=== PATIENT | male | born 1935 | race African-American/Black ===

== ENCOUNTER 2020-06-21 21:26 | Inpatient (IN) | payer MEDICAID ==
[~2020-06-21] VITALS: Ht 167.6 cm; Wt 53.5 kg
[2020-06-21 21:30] VITALS: BP 114/58
--- NOTE | 2020-06-21 21:30 | NUR ---
ED Nurse Note: Brought in by ambulance [facility] from [facility] c/o unwitnessed fall x today at 1430. Per ems, no ko or loc. presents with laceration to posterior head; mild bleeding. pt currently on heparin. presents with occational dry cough. resulted positive on 05/16/20. changed into gown; attached to monitor. patient ao2; denies recollection of incident. PERRLA; presents with purposeful movement. head of bed raised; decreased environmental stimuli. pui precautions observed. all safety measures met.
--- NOTE | 2020-06-21 21:35 | NUR ---
ED Nurse Note: IV ACCESS ESTABLISHED. BLOOD URINE MRSA VRE CRE COVID SWAB COLLECTED; SENT DOWN TO LAB. EKG DONE AT BEDSIDE; REVEIWED BY GRISEL.
[2020-06-21] MEDS ORDERED: COLACE100 MG ORAL (21:41)
[2020-06-21] MEDS ORDERED: HEPARIN SO5000 UNIT2 SUBQ (21:41)
[2020-06-21] MEDS ORDERED: ALBUTEROL2.5 MG/3 M INH (21:41)
[2020-06-21] MEDS ORDERED: FERROUS SULFAT325 MG ORAL (21:41)
[2020-06-21] MEDS ORDERED: HYDRALAZINE HCL25 M1 ORAL (21:41)
[2020-06-21] MEDS ORDERED: AMLODIPINE BESY10 MG ORAL (21:41)
--- NOTE | 2020-06-21 22:00 | NUR ---
ED Nurse Note: patient down to imaging via gurney with hvac operations technician.
[2020-06-21 22:11] LABS: BASOPHILS % (AUTO) 1.7 % (0.0-2.0); EOSINOPHILS % (AUTO) 1.9 % (0.0-3.0); HEMATOCRIT 32.5 % (42.0-52.0); HEMOGLOBIN 11.2 G/DL (14.2-18.0); LYMPHOCYTES % (AUTO) 9.2 % (20.0-45.0); MEAN CORPUSCULAR VOLUME 90 FL (80-99); MONOCYTES % (AUTO) 6.4 % (1.0-10.0); NEUTROPHILS % (AUTO) 80.8 % (45.0-75.0); PLATELET COUNT 226 K/UL (150-450); RED CELL DISTRIBUTION WIDTH 12.1 % (11.6-14.8)
[2020-06-21 22:19] LABS: ANION GAP 10 mmol/L (5-15); BLOOD UREA NITROGEN 57 mg/dL (7-18); CARBON DIOXIDE 25 MMOL/L (21-32); CHLORIDE 104 MMOL/L (98-107); CREATININE 2.8 MG/DL (0.55-1.30); POTASSIUM 5.7 MMOL/L (3.5-5.1); SODIUM 139 MMOL/L (136-145)
[2020-06-21 22:23] LABS: INR 0.9 (0.9-1.1)
[2020-06-21 22:24] LABS: ALANINE AMINOTRANSFERASE 22 U/L (12-78); ALBUMIN 3.7 G/DL (3.4-5.0); ALBUMIN/GLOBULIN RATIO 1.1 (1.0-2.7); ALKALINE PHOSPHATASE 93 U/L (46-116); ASPARTATE AMINO TRANSFERASE 14 U/L (15-37); BILIRUBIN,TOTAL 0.4 MG/DL (0.2-1.0)
--- NOTE | 2020-06-21 22:26 | NUR ---
ED Nurse Note: patient back from imaging via gurney; reattached to monitor. vitals remain stable to baseline
--- NOTE | 2020-06-21 22:33 | Emergency Room Report ---
History of Present Illness General Chief Complaint: Multiple Trauma/Fall Source: Patient, EMS Present Illness HPI Patient is an 84-year-old male sent in from facility after increased headache after fall in alf. Patient had positive coronavirus testing he does not recall events. Patient states that this occurred earlier in the day. Patient had been sent in for further evaluation and treatment. Does not recall events. Does not recall hitting his head. Patient is currently being anticoagulated with heparin. 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 COVID-19 Screening: Positive COVID-19 COVID-19 Testing Source: SNF Patient History Past Medical History: see triage record Reviewed Nursing Documentation: PMH: Agreed; PSxH: Agreed Nursing Documentation-PMH Hx Hypertension: Yes Review of Systems All Other Systems: limited - Limited by poor historian Physical Exam Vital Signs Date Time Temp Pulse Resp B/P (MAP) Pulse Ox O2 Delivery O2 Flow Rate FiO2 06/21/20 21:29 99.0 62 19 114/58 (76) 98 Room Air Sp02 EP Interpretation: reviewed, normal General Appearance: normal inspection, well appearing, no apparent distress, alert, GCS 15 Head: other - Left-sided occipital scalp laceration less than 1 cm without evident bleeding ENT: normal ENT inspection, hearing grossly normal, normal voice Neck: normal inspection, supple, no bony tend, limited range of motion Respiratory: normal inspection, lungs clear, normal breath sounds, no respiratory distress, no retraction, no wheezing Cardiovascular #1: regular rate, rhythm, no edema Gastrointestinal: normal inspection, normal bowel sounds, non tender, soft, no guarding, no hernia Genitourinary: no CVA tenderness Musculoskeletal: normal inspection, back normal, normal range of motion Neurologic: alert, motor strength/tone normal, oriented x3, responsive, speech normal, normal inspection Psychiatric: normal inspection, judgement/insight normal, mood/affect normal Skin: laceration - Superficial laceration 1 cm Medical Decision Making Diagnostic Impression: Primary Impression: Fall Additional Impressions: Hyperkalemia Renal insufficiency Head contusion ER Course Presented after a fall. Differential diagnosis include was not limited to syncope, intracranial hemorrhage, coronavirus infection among others. Because of complexity of patient's case laboratory tests and imaging studies were ordered. Patient's potassium level was noted to be 5.7 EKG interpreted by me showed some peaking of T waves consistent with hyperkalemia.Patient was given Kayexalate. CT imaging of the head read by radiology showed no evidence of acute intracranial pathology. His laceration a superficial does not appear to require suturing there is no active bleeding noted. CT of the cervical spine showed no evidence of acute fracture. Patient was discussed with Dr. Jefferson John who agreed to admit the patient due to hyperkalemia and likely recent syncopal episode. Labs Test 06/21/20 21:35 White Blood Count 8.0 K/UL (4.8-10.8) Red Blood Count 3.60 M/UL (4.70-6.10) Hemoglobin 11.2 G/DL (14.2-18.0) Hematocrit 32.5 % (42.0-52.0) Mean Corpuscular Volume 90 FL (80-99) Mean Corpuscular Hemoglobin 31.1 PG (27.0-31.0) Mean Corpuscular Hemoglobin Concent 34.5 G/DL (32.0-36.0) Red Cell Distribution Width 12.1 % (11.6-14.8) Platelet Count 226 K/UL (150-450) Mean Platelet Volume 6.5 FL (6.5-10.1) Neutrophils (%) (Auto) 80.8 % (45.0-75.0) Lymphocytes (%) (Auto) 9.2 % (20.0-45.0) Monocytes (%) (Auto) 6.4 % (1.0-10.0) Eosinophils (%) (Auto) 1.9 % (0.0-3.0) Basophils (%) (Auto) 1.7 % (0.0-2.0) Prothrombin Time 10.1 SEC (9.30-11.50) Prothromb Time International Ratio 0.9 (0.9-1.1) Activated Partial Thromboplast Time 27 SEC (23-33) Sodium Level 139 MMOL/L (136-145) Potassium Level 5.7 MMOL/L (3.5-5.1) Chloride Level 104 MMOL/L (98-107) Carbon Dioxide Level 25 MMOL/L (21-32) Anion Gap 10 mmol/L (5-15) Blood Urea Nitrogen 57 mg/dL (7-18) Creatinine 2.8 MG/DL (0.55-1.30) Estimat Glomerular Filtration Rate 26.2 mL/min (>60) Glucose Level 138 MG/DL (74-106) Calcium Level 9.0 MG/DL (8.5-10.1) Total Bilirubin 0.4 MG/DL (0.2-1.0) Aspartate Amino Transf (AST/SGOT) 14 U/L (15-37) Alanine Aminotransferase (ALT/SGPT) 22 U/L (12-78) Alkaline Phosphatase 93 U/L (46-116) Troponin I 0.001 ng/mL (0.000-0.056) Total Protein 7.2 G/DL (6.4-8.2) Albumin 3.7 G/DL (3.4-5.0) Globulin 3.5 g/dL Albumin/Globulin Ratio 1.1 (1.0-2.7) EKG Diagnostic Results Rate: normal Rhythm: NSR ST Segments: other - Right bundle branch block with peaking T waves Last Vital Signs Date Time Temp Pulse Resp B/P (MAP) Pulse Ox O2 Delivery O2 Flow Rate FiO2 06/21/20 21:30 62 19 Room Air 06/21/20 21:30 99.0 114/58 98 Status: improved Disposition: ADMITTED INPATIENT Condition: Serious Referrals: Jefferson Novak MD (PCP) Agustin Vilchis MD Jun 21, 2020 22:33
[2020-06-21] MEDS ORDERED: Sodium Polystyrene Sulfonate 15gm Powder ORAL ONE (22:45)
--- NOTE | 2020-06-21 22:51 | Diagnostic Imaging Report ---
EXAM: CT Cervical Spine Without Intravenous Contrast CLINICAL HISTORY: PAIN TECHNIQUE: Axial computed tomography images of the cervical spine without intravenous contrast. CTDI is 38.7 mGy and DLP is 947.4 mGy-cm. One or more of the following dose reduction techniques were used: automated exposure control, adjustment of the mA and/or kV according to patient size, use of iterative reconstruction technique. Coronal and sagittal reformatted images were created and reviewed. Axial reformatted images were created and reviewed. COMPARISON: No relevant prior studies available. FINDINGS: Vertebrae: Unremarkable. No acute fracture. Discs/spinal canal/neural foramina: Osteopenia and multilevel age- related degenerative spine findings. No spinal canal stenosis. Soft tissues: Unremarkable. Vasculature: Carotid ASVD. Thyroid: If felt to alter clinical management, recommend outpatient thyroid ultrasound to further characterize heterogeneous right thyroid 3. 8 cm nodule. IMPRESSION: 1. No acute traumatic injury. 2. Osteopenia and multilevel age-related degenerative spine findings. 3. If felt to alter clinical management, recommend outpatient thyroid ultrasound to further characterize heterogeneous right thyroid 3.8 cm nodule. 4. Carotid ASVD.
--- NOTE | 2020-06-21 23:00 | Diagnostic Imaging Report ---
EXAM: CT Head Without Intravenous Contrast CLINICAL HISTORY: PAIN TECHNIQUE: Axial computed tomography images of the head/brain without intravenous contrast. CTDI is 53.4 mGy and DLP is 1042 mGy-cm. One or more of the following dose reduction techniques were used: automated exposure control, adjustment of the mA and/or kV according to patient size, use of iterative reconstruction technique. COMPARISON: No relevant prior studies available. FINDINGS: Brain: See below. Ventricles: Unremarkable. No ventriculomegaly. Bones/joints: Unremarkable. No acute fracture. Soft tissues: Recommend direct evaluation of 2 cm scalp lesion right posterior parietal region axial series 21 image 18. Vasculature: Advanced chronic senescent findings of parenchymal volume loss, cerebrovascular atherosclerosis, nonspecific white matter hypodensity likely secondary to chronic microvascular ischemia. Sinuses: Chronic right maxillary sinusitis with right maxillary sinus opacification, this could be a cause for pain. Mastoid air cells: Unremarkable as visualized. No mastoid effusion. IMPRESSION: 1. No acute intracranial abnormality. 2. Advanced chronic senescent findings. 3. Chronic right maxillary sinusitis with right maxillary sinus opacification, this could be a cause for pain. 4. Recommend direct evaluation of 2 cm scalp lesion right posterior parietal region axial series 21 image 18.
--- NOTE | 2020-06-21 23:00 | NUR ---
ED Nurse Note: patient resulted covid negative; pui precautions lifted per ermd.
[2020-06-21 23:01] VITALS: BP 107/45
--- NOTE | 2020-06-21 23:25 | NUR ---
TRANSFER TO FLOOR: [facility] as ordered, per jennifer hercules. Report given to donte murray. patient stable for transport. transferred to unit via gurney with optical coating technician and rn. belongings and admission packet sent with patient.
--- NOTE | 2020-06-21 23:25 | NUR ---
NURSE NOTES: Received pt from ER via sue. Pt alert/oriented x2, with episodes of forgetfulness noted. Able to make needs known. Received report from ERON Reynolds. No resp distress noted, sating at 98 % on room air. Placed on cardiac monitoring. IV 18g on right AC saline locked. Able to moved all extremities. Body check done no skin issues noted. No c/o pain. Oriented to room and unit. Belonging list checked and signed. Bed in low position & locked, Side rails up x3, bed alarm field applications specialist light with in reach. Will contact DR. Novak for admission orders
--- NOTE | 2020-06-21 23:44 | NUR ---
NURSE NOTES: Received admission orders from ,will note and carry out.
[2020-06-21] MEDS ORDERED: HydrALAZINE 25mg tab ORAL PRN (23:45)
--- NOTE | 2020-06-22 | NUR ---
NURSE NOTES: Mcleod cath inserted for strict I/O per Dr. Up. Patent, draining to gravity 20cc of yellow urine observed. Pt voided 150cc prior to insertion of Mcleod cath. No c/o pain or discomfort at this time.
[2020-06-22] MEDS: D5 1/2NS 1,000 ML IV SCH ×3 (00:24→22:06)
[2020-06-22 00:38] LABS: APPEARANCE,URINE CLEAR; BILIRUBIN, URINE NEGATIVE (NEGATIVE); COLOR,URINE YELLOW; GLUCOSE, URINE (UA) NEGATIVE (NEGATIVE); KETONES,URINE NEGATIVE (NEGATIVE); NITRITE,URINE NEGATIVE (NEGATIVE); PH,URINE 5 (4.5-8.0); PROTEIN,URINE NEGATIVE (NEGATIVE); UROBILINOGEN,URINE NORMAL MG/DL (0.0-1.0)
[2020-06-22 01:07] LABS: LEUKOCYTE ESTERASE ,URINE 2+ (NEGATIVE)
[2020-06-22 04:00] VITALS: BP 117/47
--- NOTE | 2020-06-22 07:28 | NUR ---
NURSE HAND-OFF REPORT: Important Events on Shift: Admitted from ER S/P fall and hyperkalemia 5.7, Kayexalate given in ER. Patient Status:Stable Diet: Regular puree Pending Orders: Morning labs Pending Results/Labs:Morning labs Pending MD notification:none Latest Vital Signs: Temperature 97.9 , Pulse 60 , B/P 117 /47 , Respiratory Rate 16 , O2 SAT 99 , Room Air, O2 Flow Rate . Vital Sign Comment: [] EKG Rhythm: Sinus Rhythm Rhythm change?: Y MD Notified?: N - MD Response: none Latest Anglin Fall Score: 85 Fall Risk: High Risk Safety Measures: Call light Within Reach, Bed Alarm Zone 2, Side Rails Side Rails x2, Bed position Low and Locked. Fall Precautions: Yellow Socks Yellow Gown Door Sign Patient Fall Education Report given to ERON Aaron and Jin RN.
--- NOTE | 2020-06-22 07:48 | NUR ---
NURSES NOTE: Pt is A/O x2-3 but very forgetful. Pt is on bedrest for S/P fall. CT was negative. Pt has a bajwa in place for urinary retention. Pt is on room air and SATing @ 97%. logistics engineer showing SR at 68. IV is intact on RAC 18G. Bed in lowest position and locked and call light placed within reach and reminded to use when needed.
[2020-06-22 08:03] VITALS: BP 112/52
[2020-06-22 09:04] LABS: BASOPHILS % (AUTO) 1.5 % (0.0-2.0); EOSINOPHILS % (AUTO) 2.2 % (0.0-3.0); HEMATOCRIT 30.9 % (42.0-52.0); HEMOGLOBIN 10.6 G/DL (14.2-18.0); LYMPHOCYTES % (AUTO) 9.6 % (20.0-45.0); MEAN CORPUSCULAR VOLUME 90 FL (80-99); MONOCYTES % (AUTO) 8.8 % (1.0-10.0); NEUTROPHILS % (AUTO) 77.9 % (45.0-75.0); PLATELET COUNT 226 K/UL (150-450); RED BLOOD COUNT 3.43 M/UL (4.70-6.10); RED CELL DISTRIBUTION WIDTH 11.7 % (11.6-14.8); WHITE BLOOD COUNT 8.8 K/UL (4.8-10.8)
[2020-06-22] MEDS: Docusate 100mg cap ORAL SCH ×2 (09:27→18:24)
[2020-06-22 09:49] LABS: ALANINE AMINOTRANSFERASE 25 U/L (12-78); ALBUMIN 3.2 G/DL (3.4-5.0); ALKALINE PHOSPHATASE 68 U/L (46-116); ANION GAP 6 mmol/L (5-15); ASPARTATE AMINO TRANSFERASE 14 U/L (15-37); BILIRUBIN,TOTAL 0.5 MG/DL (0.2-1.0); BLOOD UREA NITROGEN 52 mg/dL (7-18); CALCIUM 8.6 MG/DL (8.5-10.1); CARBON DIOXIDE 24 MMOL/L (21-32); CHLORIDE 110 MMOL/L (98-107); CHOLESTEROL 141 MG/DL (< 200); CREATININE 1.9 MG/DL (0.55-1.30); FERRITIN 245 NG/ML (8-388); GAMMA GLUTAMYL TRANSPEPTIDASE 15 U/L (5-85); HDL CHOLESTEROL 47 MG/DL (40-60); LACTATE DEHYDROGENASE 143 U/L (81-234); PHOSPHORUS 3.3 MG/DL (2.5-4.9); POTASSIUM 4.9 MMOL/L (3.5-5.1); SODIUM 140 MMOL/L (136-145); TRIGLYCERIDES 81 MG/DL (30-150)
[2020-06-22 10:12] LABS: % IRON SATURATION 31 % (15-50); IRON 65 ug/dL (50-175); TOTAL IRON BINDING CAPACITY 207 ug/dL (250-450)
--- NOTE | 2020-06-22 10:38 | NUR ---
CASE MANAGEMENT:INITIAL REVIEW 84 YR OLD MALE PAIGE FROM [facility] CC;MULTIPLE FALL. TRAUMA. SI;HYPERKALEMIA, SYNCOPE. HEAD INJURY. 99.0 79 19 104/45 98% ON RA K+ 5.7 BUN 57 CR 2.8 BG 138 UA+ BLOOD, LEUKOCYTE ESTERASE, RBC, WBC COVID-19 RAPID ~ NEGATIVE HEAD CT ~ 1. No acute intracranial abnormality. 2. Advanced chronic senescent findings. 3. Chronic right maxillary sinusitis with right maxillary sinus opacification, this could be a cause for pain. 4. Recommend direct evaluation of 2 cm scalp lesion right posterior parietal region axial series [address] ~ 1. No acute traumatic injury. 2. Osteopenia and multilevel age-related degenerative spine findings. 3. If felt to alter clinical management, recommend outpatient thyroid ultrasound to further characterize heterogeneous right thyroid 3.8 cm nodule. 4. Carotid ASVD. BLOOD CX ~ PENDING IS;IVF NS BOLUS ADMITTED TO TELE 06/22/20 @ 0837 TELEMETRY STATUS DCP; FROM [facility] Addendum: 06/22/20 at 1449 by LEISA ROBERTS LVN LVN IS;KANEMESIOLATAMMY PO Addendum: 06/22/20 at 1548 by LEISA ROBERTS LVN LVN INTERQUAL CRITERIA MET
--- NOTE | 2020-06-22 10:58 | NUR ---
INSURANCE ALL AVAILABLE CLINICALS AND REVIEWS HAVE BEEN FAXED TO [employer] P: [phone] F: [phone] Addendum: 06/22/20 at 1654 by LEISA ROBERTS LVN LVN [facility] #[id number]
--- NOTE | 2020-06-22 11:49 | Consultation ---
Consult Note Consult Note I am asked to evaluate the patient at the request of Dr. John for renal failure Patient is an 84-year-old male sent in from facility after increased headache after fall in detention. Patient had positive coronavirus testing he does not recall events. Patient states that this occurred earlier in the day. Patient had been sent in for further evaluation and treatment. Does not recall events. Does not recall hitting his head. Patient is currently being anticoagulated with heparin. 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 GENERAL APPEARANCE: No acute distress. Seems to be underweight. HEAD AND NECK: Getting oxygen by nasal cannula. HEART: Normal rate. LUNGS: Clear. ABDOMEN: Flat, soft, nontender. EXTREMITY: Has no edema. LABORATORY AND DIAGNOSTIC DATA: Sodium 141, potassium 4.2, chloride 104, bicarb 21, BUN 38, creatinine 2. Troponin, the first set was 13.8, the second one is 17.255. EKG showed lateral ST elevation, right bundle-branch block. Labs, WBC 5.5, yesterday WBC was 18.4, hemoglobin 12.2, hematocrit 35.8, and platelets 244,000. Albumin is 3.2. Chest x-ray showed bilateral congestion, edema, infection, inflammatory process. UA showed rbc too numerous to count, wbc 10 to 30. Urine culture showed mixed bao. Blood culture x2 negative. COVID test at the time of admission was negative. VRE, MRSA screen negative. . Assessment/Plan Acute on chronic renal failure Patient presented with hyperkalemia History of hypertension however presents with borderline low blood pressure Anemia Falls Suggestions: IV hydration Mcleod catheter Hold blood pressure medications for now Monitor renal parameters Per orders I spent an additional 36 minutes on review of medical records including prior hospital records,consult notes, progress notes, procedures ,imaging labs, hemodynamics, and other clinical documentation. Sage Up MD Jun 22, 2020 11:49
[2020-06-22 12:00] VITALS: BP 119/43
--- NOTE | 2020-06-22 14:13 | Diagnostic Imaging Report ---
Indication: Chest pain Technique: One view of the chest Comparison: none Findings: Lungs and pleural spaces are clear. The heart size is upper limits normal. There is evaluated tortuous and calcified Impression: No acute process
--- NOTE | 2020-06-22 15:26 | NUR ---
BEDSIDE SWALLOW EVALUATION RECEIVED FROM DR. RODRIGUEZ. CHART REVIEW COMPLETED, RN INTERVIEWED, EVAL COMPLETED. PER POLST: NO ARTIFICIAL MEANS OF NUTRITION DYSPHAGIA RISK FACTORS: VARIABLE MENTATION, HX OF MULTIPLE FALLS/S/P HEAD TRAUMA, PER HEAD CT: CHRONIC SENESCENT CHANGES. INITIAL IMPRESSIONS: BEDSIDE SWALLOW EVALUATION INDICATED GENERALLY INTACT OROPHARYNGEAL PHASE OF SWALLOW FOR SOFT SOLIDS AND THIN LIQUIDS. PATIENT ADMITTED S/P FALL AND HEAD TRAUMA. HE WAS ABLE TO FOLLOW COMMANDS FOR ORAL MOTOR EXAM. DENTITION INCLUDES UPPER AND LOWER DENTURES. LINGUAL/LABIAL/MANDIBULAR MUSCULATURE PRESENTS INTACT FOR ROM/COORDINATION/STRENGTH. TRIALED PATIENT WITH SOFT SOLIDS, PUREE AND THIN LIQUIDS. ORAL PHASE OF THER SWALLOW WAS WFL WITH NO ANTERIOR SPILLAGE OR RESIDUE FOLLOWING THE SWALLOW. BOLUS FORMATION AND MANIPULATION WAS WFL. PHARYNGEAL PHASE WAS PALPATED. HYOLARYNGEAL EXCURSION APPEARED TO BE TIMELY AND ADEQUATE FOR AIRWAY PROTECTION. NO CHANGES IN VOCAL QUALITY OR RESPIRATION RATE. NO COUGH OR THROAT CLEAR NOTED. FURTHER SKILLED GRAIN MIXER SERVICES ARE NEEDED FOR COGNITIVE/LINGUISTIC SCREEN (IN LIGHT OF MULTIPLE FALLS) AND TO INSURE PATIENT TOLERATES A SOFT DIET WITH THIN LIQUIDS. DISCUSSED FINDINGS WITH ERON QUIROS. RECOMMENDATIONS 1. SOFT DIET WITH THIN LIQUIDS 2. SET UP ASSIST WITH MEALS 3. ST TO FOLLOW FOR DIET TOLERANCE, COGNITIVE/LINGUISTIC SCREEN, PATIENT/CAREGIVER EDUCATION THANK YOU FOR THIS REFERRAL.
[2020-06-22 16:00] VITALS: BP 137/51
--- NOTE | 2020-06-22 17:59 | Consultation ---
DATE OF CONSULTATION: 06/22/2020 PULMONARY CONSULTATION CONSULTING PHYSICIAN: Ross An MD HISTORY OF PRESENT ILLNESS: This is an 84-year-old male sent from nursing facility after an apparent fall. The patient has been found to be tested positive for COVID-19 recently. The patient information. PAST MEDICAL HISTORY: Notable for previous COVID-19 positivity and hypertension. ALLERGIES: None reported. CODE STATUS: DNR. REVIEW OF SYSTEMS: Unreliable. PHYSICAL EXAMINATION: GENERAL: Reveals an 84-year-old male. VITAL SIGNS: Blood pressure is 112/50, heart rate 68, respirations 18. O2 saturation 98% on room air. HEENT: Unremarkable. CHEST: Shows clear breath sounds bilaterally with normal heart sounds. ABDOMEN: Soft. EXTREMITIES: There is no edema. LABORATORY DATA: Lab testing shows normal CBC with hemoglobin 10.6. Creatinine 1.9. Coags are negative. Urinalysis shows few pus cells. IMAGING STUDIES: Head CT is negative as was cervical spine CT. IMPRESSION: 1. Status post fall. 2. History of COVID-19 pneumonia. 3. Scalp laceration. 4. Renal insufficiency. 5. Anemia. 6. Hyperkalemia. DISCUSSION: The patient's EKG shows evidence of mild hyperkalemia with peak T-waves. He needs correction of potassium. Currently saturating well on room air. 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 We will follow. Ross An M.D. DR: WAQAR JOB#: [id number] CC:
--- NOTE | 2020-06-22 18:00 | History and Physical Report ---
DATE OF ADMISSION: 06/21/2020 HISTORY OF PRESENT ILLNESS: Patient has been admitted because of status post fall, admitted for hyperkalemia with peaked T-waves, rule out syncope, head injury. Patient is a relatively poor historian, cannot rely upon the history of the patient. Patient comes from a [facility]. Patient denies nausea, vomiting, or diarrhea. Denies pain. Denies shortness of breath. Denies headache. Denies nausea, vomiting, or diarrhea, however, is a poor historian. PAST MEDICAL HISTORY: Significant for dementia, history of constipation, hypertension, iron deficiency anemia. Patient is on heparin. PAST SURGICAL HISTORY: Denies. FAMILY HISTORY: Noncontributory. SOCIAL HISTORY: Has history of smoking. Denies history of drug abuse. Denies history of alcohol abuse. Comes from a [facility]. ALLERGIES: No known allergies. MEDICATIONS: Colace, Norvasc, ferrous sulfate, heparin, hydralazine. REVIEW OF SYSTEMS: HEENT: Denies headaches. RESPIRATORY: Denies shortness of breath. Denies cough. CARDIOVASCULAR: Denies chest pain. GASTROINTESTINAL: Denies nausea, vomiting, or diarrhea. EXTREMITIES: Denies pain. CENTRAL NERVOUS SYSTEM: Denies change in speech pattern. PHYSICAL EXAMINATION: VITAL SIGNS: Temperature is 97.9, pulse is 67, blood pressure 112/52. HEENT: PERRLA. NECK: Supple. No lymphadenopathy. CHEST: Clear to auscultation. CARDIOVASCULAR: Regular rate and rhythm. No murmurs or extra sounds. GASTROINTESTINAL: Soft, nontender, nondistended. No organomegaly. EXTREMITIES: No edema. Moves all four extremities. Sensory intact to light touch. Reflexes on both sides. Dorsalis pedis pulses present. NEUROLOGIC: Has generalized weakness. LABORATORY DATA: WBC of 8, hemoglobin of 11.2, platelets of 226. Sodium 139, potassium 5.7, BUN of 57, creatinine 2.8, glucose of 138. ASSESSMENT AND PLAN: Hyperkalemia with peaked T-waves, acute renal failure, status post fall, poor historian, and shortness of breath. I have asked Dr. An, Dr. Up, Dr. Smalls as well as Dr. Shravan Rodriguez to see the patient for the above-mentioned diagnoses and treatment. Antibiotics if any per Dr. Shravan Rodriguez. Patient's acute renal failure, most likely due to dehydration. IV fluids per Dr. Cheney and Dr. Up. Jefferson Novak M.D. DR: KENAN JOB#: [id number] CC:
--- NOTE | 2020-06-22 19:46 | NUR ---
NURSE HAND-OFF REPORT: Important Events on Shift: Will be transferred to Med Surg. Patient Status: DNR Good Diet: Pending Orders: No Pending Results/Labs:No Pending MD notification:No Latest Vital Signs: Temperature 98.6 , Pulse 68 , B/P 137 /51 , Respiratory Rate 18 , O2 SAT 99 , Room Air, O2 Flow Rate . Vital Sign Comment: EKG Rhythm: SR w/ BBB Rhythm change?: N MD Notified?: Y Sonny Novak MD Response: Latest Anglin Fall Score: 85 Fall Risk: High Risk Safety Measures: Call light Within Reach, Bed Alarm Zone 1, Side Rails Side Rails x2, Bed position Low and Locked. Fall Precautions: Yellow Socks Yellow Gown Door Sign Patient Fall Education Report given to Julianna.
--- NOTE | 2020-06-22 19:47 | NUR ---
NURSE NOTES: Patient received from Agnieszka LITTLEJOHN. Patient in stable condition. Alert and oriented x1-2. Saturating well on Room air. No s/s of distress. Patient refusing SCDs. Mcleod catheter in place patent and intact draining well to gravity. Bed lowest position and locked. Patient wearing yellow gown and yellow socks with side rails up x3. IV site on Right AC 18G patent and intact with D5 1/2 NS running @ 75mls/hr. Will continue plan of care.
[2020-06-22 20:00] VITALS: BP 128/61
[2020-06-22] MEDS ORDERED: Acetaminophen 500mg (ES) tab ORAL PRN ×2 (21:00)
[2020-06-22] MEDS ORDERED: HydrALAZINE 25mg tab ORAL PRN (21:30)
--- NOTE | 2020-06-22 21:57 | NUR ---
NURSE NOTES: Received report from ERON Levine. Pt transferred from tele @ [id number]. AAO x 2, confused, on room air. Denies pain and labored breathing. IV site intact and running IVF. Mcleod intact and draining yellow urine. Instruction given to use a call light. Fall precaution maintained. Bed locked, lowest position, alarm on, call light within reach. Will continue to monitor.
--- NOTE | 2020-06-22 21:57 | NUR ---
NURSE NOTES: Bruises on bilateral arms and skin tear on R FA noted.
--- NOTE | 2020-06-22 21:58 | NUR ---
NURSE HAND-OFF REPORT: Important Events on Shift:[Transfer to [place]] Patient Status: [Stable] Diet: [Regular soft easy chew] Pending Orders: [] Pending Results/Labs:[] Pending MD notification:[] Latest Vital Signs: Temperature 98.6 , Pulse 61 , B/P 97 /65 , Respiratory Rate 18 , O2 SAT 100 , Room Air, O2 Flow Rate . Vital Sign Comment: [] EKG Rhythm: SR w/ BBB Rhythm change?: N MD Notified?: Y Sonny Novak MD Response: Latest Anglin Fall Score: 85 Fall Risk: High Risk Safety Measures: Call light Within Reach, Bed Alarm Zone 1, Side Rails Side Rails x2, Bed position Low and Locked. Fall Precautions: Yellow Socks Yellow Gown Door Sign Patient Fall Education Report given to [Marcia].
[2020-06-23] VITALS: BP 97/65
--- NOTE | 2020-06-23 01:26 | NUR ---
NURSE NOTES: Pt is very confused, agitated, and trying to pull out Mcleod. Mcleod intact but moderate amount of bleeding came out from the penis. Secured anchor with silk tape and left message Dr. Novak. Awaiting call back.
--- NOTE | 2020-06-23 02:00 | NUR ---
NURSE NOTES: Urine collected and sent to the lab
--- NOTE | 2020-06-23 02:20 | NUR ---
NURSE NOTES: Pt tried to pull out bajwa again and bleeding came out. RN educated pt regarding necessity of bajwa but unable to understanding and says "I want to pee, I got a pee." Emergency bilateral soft wrists restraints applied and left message Dr. Novak. Awaiting call back.
--- NOTE | 2020-06-23 03:20 | NUR ---
NURSE NOTES: Still awaiting call back. Emergency bilateral soft wrists restraints applied has been one hour. RN took them off. Skin is intact. Alternative measures attempted but still pt confused and touching aydee to pull out. Addendum: 06/23/20 at 0553 by DEEPIKA PANIAGUA RN RN NURSE NOTES: Left message Dr. Up and awaiting for call back.
[2020-06-23 04:00] VITALS: BP 160/82
--- NOTE | 2020-06-23 07:07 | NUR ---
NURSE NOTES: Removed bajwa per Dr. Up order. Some blood clots came out. Now pt is resting in bed.
--- NOTE | 2020-06-23 07:44 | NUR ---
NURSE NOTES: Per Dr. Novak, call Dr. Lopez for agitation med. Endorsed AM nurse Osseo.
--- NOTE | 2020-06-23 07:46 | NUR ---
NURSE HAND-OFF: Important Events on Shift:Pulling out Mcleod, try to get out of bed, bleeding came out from penis Patient Status: agitated, confused Diet: Reg, soft easy chew Pending Orders: Dr. Lopez for agitation meds and restraints Pending Results/Labs:swabs, blood cx, urine cx Pending MD notification:N Latest Vital Signs: Temperature 97.9 , Pulse 87 , B/P 160 /82 , Respiratory Rate 22 , O2 SAT 98 , Room Air, O2 Flow Rate . Vital Sign Comment: Latest Anglin Fall Score: 85 Fall Risk: High Risk Safety Measures: Call light Within Reach, Bed Alarm Zone 1, Side Rails Side Rails x2, Bed position Low and Locked. Fall Precautions: Yellow Socks Yellow Gown Door Sign Patient Fall Education Report given to ERON Jones.
--- NOTE | 2020-06-23 07:55 | NUR ---
NURSE NOTES: Received report from ERON Kennedy. Patient received awake in bed, alert and oriented x 1, no SOB, bed in lowest position with breaks engaged and alarm on, denies any discomfort at this time, on 2 liters 02 via NC, IV line present and intact, will continue to monitor and proceed with plan of care, call light within reach. Addendum: 06/23/20 at 1410 by Karen Roy RN Dr Lopez was made aware regarding patient's behavior (pulling IV lines, standing up unassisted, being restless) Dr. Lopez ordered Haldol 5 mg IM Q6 PRN and soft wrist restraints) noted and carried out.
[2020-06-23 08:00] VITALS: BP 106/66
[2020-06-23 08:06] LABS: HEMATOCRIT 33.8 % (42.0-52.0); HEMOGLOBIN 11.5 G/DL (14.2-18.0); MEAN CORPUSCULAR VOLUME 90 FL (80-99); PLATELET COUNT 229 K/UL (150-450); RED BLOOD COUNT 3.75 M/UL (4.70-6.10); RED CELL DISTRIBUTION WIDTH 11.4 % (11.6-14.8); WHITE BLOOD COUNT 18.4 K/UL (4.8-10.8)
[2020-06-23] MEDS: Docusate 100mg cap ORAL SCH ×2 (08:21→17:57)
[2020-06-23 08:23] LABS: ANION GAP 13 mmol/L (5-15); BLOOD UREA NITROGEN 38 mg/dL (7-18); CALCIUM 9.2 MG/DL (8.5-10.1); CARBON DIOXIDE 22 MMOL/L (21-32); CHLORIDE 104 MMOL/L (98-107); CREATININE 1.9 MG/DL (0.55-1.30); POTASSIUM 4.2 MMOL/L (3.5-5.1); SODIUM 139 MMOL/L (136-145)
[2020-06-23 08:28] LABS: ALANINE AMINOTRANSFERASE 24 U/L (12-78); ALBUMIN 3.7 G/DL (3.4-5.0); ALKALINE PHOSPHATASE 81 U/L (46-116); ASPARTATE AMINO TRANSFERASE 20 U/L (15-37); BILIRUBIN,TOTAL 0.7 MG/DL (0.2-1.0)
[2020-06-23] MEDS ORDERED: Haloperidol 5mg/ml Inj IM PRN (10:15)
[2020-06-23] MEDS: D5 1/2NS 1,000 ML IV SCH (10:58)
[2020-06-23 12:00] VITALS: BP 112/58
--- NOTE | 2020-06-23 12:11 | Pulmonology Progress Note ---
Subjective ROS Limited/Unobtainable: No Allergies: Coded Allergies: No Known Allergies (Unverified , 06/21/20) Objective Last 24 Hour Vital Signs Date Time Temp Pulse Resp B/P (MAP) Pulse Ox O2 Delivery O2 Flow Rate FiO2 06/23/20 12:00 97.8 67 18 112/58 (76) 95 06/23/20 09:00 Room Air 06/23/20 08:00 98.2 93 18 106/66 (79) 98 06/23/20 04:00 97.9 87 22 160/82 (108) 98 06/23/20 03:19 160/83 06/23/20 00:00 98.6 61 18 97/65 (76) 100 06/22/20 21:00 Room Air 06/22/20 20:00 99.0 70 18 128/61 (83) 99 06/22/20 20:00 75 06/22/20 16:00 68 06/22/20 16:00 98.6 56 18 137/51 (79) 99 Intake and Output 06/22/20 06/23/20 19:00 07:00 Intake Total 120 ml Output Total 900 ml 1000 ml Balance -780 ml -1000 ml Intake Oral 120 ml Output Urine Total 900 ml 1000 ml # Bowel Movements 1 Microbiology Date/Time Source Procedure Growth Status 06/21/20 21:35 Nasopharynx SARS-CoV-2 RdRp Gene Assay - Final Complete 06/22/20 00:05 Urine,Clean Catch Urine Culture - Preliminary NO GROWTH AFTER 24 HOURS Resulted 06/21/20 21:50 Arm Left Blood Culture - Preliminary NO GROWTH AFTER 24 HOURS Resulted 06/21/20 21:35 Arm Right Blood Culture - Preliminary NO GROWTH AFTER 24 HOURS Resulted Laboratory Tests 06/23/20 02:10: Urine Eosinophils None seen 06/23/20 07:35: White Blood Count 18.4#H, Red Blood Count 3.75L, Hemoglobin 11.5L, Hematocrit 33.8L, Mean Corpuscular Volume 90, Mean Corpuscular Hemoglobin 30.7, Mean Corpuscular Hemoglobin Concent 34.1, Red Cell Distribution Width 11.4L, Platelet Count 229, Mean Platelet Volume 6.0L, Neutrophils (%) (Auto) , Lymphocytes (%) (Auto) , Monocytes (%) (Auto) , Eosinophils (%) (Auto) , Basophils (%) (Auto) , Differential Total Cells Counted 100, Neutrophils % ( Manual) 91H, Lymphocytes % (Manual) 2L, Monocytes % (Manual) 7, Eosinophils % ( Manual) 0, Basophils % (Manual) 0, Band Neutrophils 0, Platelet Estimate Adequate, Platelet Morphology Normal, Hypochromasia 1+, Anisocytosis 1+, Sodium Level 139, Potassium Level 4.2, Chloride Level 104, Carbon Dioxide Level 22, Anion Gap 13, Blood Urea Nitrogen 38H, Creatinine 1.9H, Estimat Glomerular Filtration Rate 41.0, Glucose Level 125H, Calcium Level 9.2, Total Bilirubin 0.7 , Aspartate Amino Transf (AST/SGOT) 20, Alanine Aminotransferase (ALT/SGPT) 24, Alkaline Phosphatase 81, Total Protein 7.3, Albumin 3.7, Globulin 3.6, Albumin/ Globulin Ratio 1.0 Current Medications Medications (Trade) Dose Ordered Sig/Vanessa Route PRN Reason Start Time Stop Time Status Last Admin Dose Admin Acetaminophen (Tylenol) 500 mg Q4H PRN ORAL Mild Pain (Pain Scale 1-3) 06/22/20 21:00 07/22/20 20:59 06/23/20 01:19 Dextrose/Sodium Chloride 1,000 ml @ 75 mls/hr [id number] IV 06/22/20 21:30 07/22/20 00:00 06/23/20 10:58 Docusate Sodium (Colace) 100 mg BID ORAL 06/23/20 09:00 07/22/20 08:59 06/23/20 08:21 Haloperidol Lactate (Haldol) 5 mg Q6H PRN IM Agitation 06/23/20 10:15 08/07/20 10:14 Hydralazine HCl (Apresoline) 25 mg Q4H PRN ORAL bp over 160 syst 06/22/20 21:30 09/19/20 21:29 06/23/20 03:19 Assessment/Plan Assessment/Plan Pulmonary Progress Note HPI: This is an 84-year-old male sent from nursing facility after an apparent fall. Hyperkalemia impri=nini PAST MEDICAL HISTORY: Notable for previous COVID-19 positivity and hypertension. ALLERGIES: None reported. CODE STATUS: DNR. REVIEW OF SYSTEMS: Unreliable. PHYSICAL EXAMINATION: GENERAL: No distress VITAL SIGNS NOTED HEENT: Unremarkable. CHEST: Shows clear breath sounds bilaterally with normal heart sounds. ABDOMEN: Soft. EXTREMITIES: There is no edema. LABORATORY DATA NOTED IMAGING STUDIES: Head CT is negative as was cervical spine CT. IMPRESSION: 1. Status post fall, no acute injury CT head/neck 2. History of COVID-19 pneumonia. 3. Scalp laceration. 4. Renal insufficiency. 5. Anemia. 6. Hyperkalemiaimproved PLAN: Continue current management Currently saturating well on room air PPXMonitor labs Sree Baldwin MD Jun 23, 2020 12:11
--- NOTE | 2020-06-23 12:33 | Nephrology Progress Note ---
Assessment/Plan Problem List: (1) Leukocytosis (2) Toxic metabolic encephalopathy (3) MARQUIS (acute kidney injury) (4) Renal failure (ARF), acute on chronic (5) Hyperkalemia (6) Hyperkalemia Assessment Acute on chronic renal failure Patient presented with hyperkalemia History of hypertension however presents with borderline low blood pressure Anemia Falls Plan June 23: Patient agitated. Pulled the Mcleod out. Will discontinue Mcleod. Labs reviewed. Developed leukocytosis. Will give empirical 1 dose of Rocephin pending ID evaluation. Continue to monitor renal parameters. Continue hydration. Monitor blood pressure. Monitor renal parameters. Per orders. Discussed with RN. Repeat chest x-ray ordered. Subjective ROS Limited/Unobtainable: Yes Objective Objective Last 24 Hour Vital Signs Date Time Temp Pulse Resp B/P (MAP) Pulse Ox O2 Delivery O2 Flow Rate FiO2 06/23/20 12:00 97.8 67 18 112/58 (76) 95 06/23/20 09:00 Room Air 06/23/20 08:00 98.2 93 18 106/66 (79) 98 06/23/20 04:00 97.9 87 22 160/82 (108) 98 06/23/20 03:19 160/83 06/23/20 00:00 98.6 61 18 97/65 (76) 100 06/22/20 21:00 Room Air 06/22/20 20:00 99.0 70 18 128/61 (83) 99 06/22/20 20:00 75 06/22/20 16:00 68 06/22/20 16:00 98.6 56 18 137/51 (79) 99 Intake and Output 06/22/20 06/23/20 19:00 07:00 Intake Total 120 ml Output Total 900 ml 1000 ml Balance -780 ml -1000 ml Intake Oral 120 ml Output Urine Total 900 ml 1000 ml # Bowel Movements 1 Current Medications Medications (Trade) Dose Ordered Sig/Vanessa Route PRN Reason Start Time Stop Time Status Last Admin Dose Admin Acetaminophen (Tylenol) 500 mg Q4H PRN ORAL Mild Pain (Pain Scale 1-3) 06/22/20 21:00 07/22/20 20:59 06/23/20 01:19 Dextrose/Sodium Chloride 1,000 ml @ 75 mls/hr [id number] IV 06/22/20 21:30 07/22/20 00:00 06/23/20 10:58 Docusate Sodium (Colace) 100 mg BID ORAL 06/23/20 09:00 07/22/20 08:59 06/23/20 08:21 Haloperidol Lactate (Haldol) 5 mg Q6H PRN IM Agitation 06/23/20 10:15 08/07/20 10:14 Hydralazine HCl (Apresoline) 25 mg Q4H PRN ORAL bp over 160 syst 06/22/20 21:30 09/19/20 21:29 06/23/20 03:19 Tamsulosin HCl (Flomax) 0.4 mg BID ORAL 06/23/20 12:30 07/23/20 12:29 UNV Laboratory Tests 06/23/20 02:10: Urine Eosinophils None seen 06/23/20 07:35: White Blood Count 18.4#H, Red Blood Count 3.75L, Hemoglobin 11.5L, Hematocrit 33.8L, Mean Corpuscular Volume 90, Mean Corpuscular Hemoglobin 30.7, Mean Corpuscular Hemoglobin Concent 34.1, Red Cell Distribution Width 11.4L, Platelet Count 229, Mean Platelet Volume 6.0L, Neutrophils (%) (Auto) , Lymphocytes (%) (Auto) , Monocytes (%) (Auto) , Eosinophils (%) (Auto) , Basophils (%) (Auto) , Differential Total Cells Counted 100, Neutrophils % ( Manual) 91H, Lymphocytes % (Manual) 2L, Monocytes % (Manual) 7, Eosinophils % ( Manual) 0, Basophils % (Manual) 0, Band Neutrophils 0, Platelet Estimate Adequate, Platelet Morphology Normal, Hypochromasia 1+, Anisocytosis 1+, Sodium Level 139, Potassium Level 4.2, Chloride Level 104, Carbon Dioxide Level 22, Anion Gap 13, Blood Urea Nitrogen 38H, Creatinine 1.9H, Estimat Glomerular Filtration Rate 41.0, Glucose Level 125H, Calcium Level 9.2, Total Bilirubin 0.7 , Aspartate Amino Transf (AST/SGOT) 20, Alanine Aminotransferase (ALT/SGPT) 24, Alkaline Phosphatase 81, Total Protein 7.3, Albumin 3.7, Globulin 3.6, Albumin/ Globulin Ratio 1.0 Height (Feet): 5 Height (Inches): 6.00 Weight (Pounds): 121 General Appearance: mild distress, agitated Cardiovascular: normal rate Respiratory/Chest: decreased breath sounds Abdomen: soft Genitourinary/Rectal: other - Mcleod out Objective Mcleod out Sage Up MD Jun 23, 2020 12:33
[2020-06-23] MEDS: Tamsulosin 0.4mg cap ORAL SCH ×2 (12:48→17:57)
[2020-06-23] MEDS ORDERED: cefTRIAXone 1 GM in D5W 55 ML IVPB ONE (13:00)
--- NOTE | 2020-06-23 13:46 | Diagnostic Imaging Report ---
EXAM: XR Chest, 1 View CLINICAL HISTORY: COUGH TECHNIQUE: Frontal view of the chest. COMPARISON: Chest radiograph on 06/21/2020 FINDINGS: Hardware: None. Lungs/pleura: Hazy and interstitial opacities throughout the lungs may represent pulmonary vasculature congestion/edema and/or infectious/inflammatory process. No pleural effusion or pneumothorax. Elevation of the right hemidiaphragm, stable. Heart/mediastinum: Mild enlargement of the cardiac silhouette. Soft tissues: Unremarkable. Bones: No acute fracture. Degenerative changes of the acromioclavicular joints and spine. Upper abdomen: Normal. IMPRESSION: Hazy and interstitial opacities throughout the lungs may represent pulmonary vasculature congestion/edema and/or infectious/inflammatory process.
[2020-06-23 16:00] VITALS: BP 113/65
--- NOTE | 2020-06-23 19:10 | NUR ---
NURSE HAND-OFF: Important Events on Shift:[new order for bilateral wrist soft restraints and haldol 5 mg IM Q6 PRN] Patient Status: [stable] Diet: [Regular soft easy chew] Pending Orders: [none] Pending Results/Labs:[none] Pending MD notification:[none] Latest Vital Signs: Temperature 97.9 , Pulse 67 , B/P 113 /65 , Respiratory Rate 18 , O2 SAT 95 , Room Air, O2 Flow Rate . Vital Sign Comment: [] Latest Anglin Fall Score: 85 Fall Risk: High Risk Safety Measures: Call light Within Reach, Bed Alarm Zone 1, Side Rails Side Rails x2, Bed position Low and Locked. Fall Precautions: Yellow Socks Yellow Gown Door Sign Patient Fall Education Report given to [ERON Gould].
--- NOTE | 2020-06-23 19:34 | NUR ---
NURSE NOTES: Pt. received from ERON Jones. Pt. confused, alert to name only, breathing is even and unlabored, no complaints of pain at this time. Pt. actively trying to get out of bed and remove IV access, stating "I need to get to work." Attempted to reorient pt. of location and need to stay in bed to maintain safety. Pt. with bilateral soft wrist restraints intact, movement and sensation intact, pulses palpable. IV noted right AC intact and patent. Bed is low and locked, side rails x2 up, bed alarm active, and call light in reach; television is on for distraction.
[2020-06-23 20:00] VITALS: BP 137/70
--- NOTE | 2020-06-23 22:11 | General Progress Note ---
Assessment/Plan Problem List: (1) Hyperkalemia ICD Codes: E87.5 - Hyperkalemia SNOMED: 86216338, 391460763 (2) Renal insufficiency ICD Codes: N28.9 - Disorder of kidney and ureter, unspecified SNOMED: 811745892, 521198125 (3) Hyperkalemia ICD Codes: E87.5 - Hyperkalemia SNOMED: 40041001 (4) Leukocytosis ICD Codes: D72.829 - Elevated white blood cell count, unspecified SNOMED: 688836303, 533485316 (5) MARQUIS (acute kidney injury) ICD Codes: N17.9 - Acute kidney failure, unspecified SNOMED: 6267238, 54888232 (6) Renal failure (ARF), acute on chronic ICD Codes: N17.9 - Acute kidney failure, unspecified; N18.9 - Chronic kidney disease, unspecified SNOMED: 492652276 (7) Toxic metabolic encephalopathy ICD Codes: G92 - Toxic encephalopathy SNOMED: 988118743 Status: progressing Assessment/Plan: confused agitated at times s/p fall check renal function and lytes afebrile reviewed chart and labs and meds Subjective ROS Limited/Unobtainable: Yes Allergies: Coded Allergies: No Known Allergies (Unverified , 06/21/20) Objective Last 24 Hour Vital Signs Date Time Temp Pulse Resp B/P (MAP) Pulse Ox O2 Delivery O2 Flow Rate FiO2 06/23/20 20:00 97.3 86 19 137/70 (92) 91 06/23/20 16:00 97.9 67 18 113/65 (81) 95 06/23/20 12:00 97.8 67 18 112/58 (76) 95 06/23/20 09:00 Room Air 06/23/20 08:00 98.2 93 18 106/66 (79) 98 06/23/20 04:00 97.9 87 22 160/82 (108) 98 06/23/20 03:19 160/83 06/23/20 00:00 98.6 61 18 97/65 (76) 100 Intake and Output 06/22/20 06/23/20 19:00 07:00 Intake Total 120 ml Output Total 900 ml 1000 ml Balance -780 ml -1000 ml Intake Oral 120 ml Output Urine Total 900 ml 1000 ml # Bowel Movements 1 Laboratory Tests 06/23/20 02:10: Urine Eosinophils None seen 06/23/20 07:35: White Blood Count 18.4#H, Red Blood Count 3.75L, Hemoglobin 11.5L, Hematocrit 33.8L, Mean Corpuscular Volume 90, Mean Corpuscular Hemoglobin 30.7, Mean Corpuscular Hemoglobin Concent 34.1, Red Cell Distribution Width 11.4L, Platelet Count 229, Mean Platelet Volume 6.0L, Neutrophils (%) (Auto) , Lymphocytes (%) (Auto) , Monocytes (%) (Auto) , Eosinophils (%) (Auto) , Basophils (%) (Auto) , Differential Total Cells Counted 100, Neutrophils % ( Manual) 91H, Lymphocytes % (Manual) 2L, Monocytes % (Manual) 7, Eosinophils % ( Manual) 0, Basophils % (Manual) 0, Band Neutrophils 0, Platelet Estimate Adequate, Platelet Morphology Normal, Hypochromasia 1+, Anisocytosis 1+, Sodium Level 139, Potassium Level 4.2, Chloride Level 104, Carbon Dioxide Level 22, Anion Gap 13, Blood Urea Nitrogen 38H, Creatinine 1.9H, Estimat Glomerular Filtration Rate 41.0, Glucose Level 125H, Calcium Level 9.2, Total Bilirubin 0.7 , Aspartate Amino Transf (AST/SGOT) 20, Alanine Aminotransferase (ALT/SGPT) 24, Alkaline Phosphatase 81, Total Protein 7.3, Albumin 3.7, Globulin 3.6, Albumin/ Globulin Ratio 1.0 Height (Feet): 5 Height (Inches): 6.00 Weight (Pounds): 121 Jefferson Novak MD Jun 23, 2020 22:11
[2020-06-24] VITALS (23 sets, daily range): BP systolic 77–136; BP diastolic 43–89
--- NOTE | 2020-06-24 00:08 | Initial Psychiatric Evaluation ---
Psychiatry Consultation Psychiatry Consultation Chief Complaint: Multiple Trauma/Fall Allergies: Coded Allergies: No Known Allergies (Unverified , 06/21/20) Medication History Scheduled Amlodipine Besylate* (Amlodipine Besylate*), 10 MG ORAL DAILY, (Reported) Docusate Sodium* (Colace*), 100 MG ORAL DAILY, (Reported) Ferrous Sulfate* (Ferrous Sulfate*), 325 MG ORAL DAILY, (Reported) Heparin Sod (Porcine) (Heparin Sodium*), 5,000 UNITS SUBQ EVERY 12 HOURS, ( Reported) Hydralazine Hcl* (Hydralazine Hcl*), 25 MG ORAL EVERY 8 HOURS, (Reported) Scheduled PRN Albuterol Sulfate* (Albuterol Sulfate Hhn*), 3 ML INH Q4H PRN for Shortness of Breath, (Reported) Objective Data Height (Feet): 5 Height (Inches): 6.00 Weight (Pounds): 121 Additional Comments: Awake, disoriented. Mood is agitated. Affect is flat. Thought process is concrete. Thought content, no suicidal or homicidal ideation. Cognition is impaired. Insight and judgment is impaired. ASSESSMENT: Acute toxic encephalopathy. PLAN: 1. The patient will benefit from bilateral soft restraints. 2. Continue Haldol IM. Chacho Lopez MD Jun 24, 2020 00:08
[2020-06-24] MEDS: D5 1/2NS 1,000 ML IV SCH ×2 (00:15→13:00)
--- NOTE | 2020-06-24 07:13 | NUR ---
NURSE NOTES: Received report from ERON Gould. Patient received in bed, alert and oriented x 1, no SOB, bed in lowest position with breaks engaged and alarm on, denies any discomfort at this time, on room air, bilateral soft wrist restraints in place, IV line present and intact on R AC, will continue to monitor and proceed with plan of care, call light within reach
[2020-06-24 07:18] LABS: ALANINE AMINOTRANSFERASE 31 U/L (12-78); ALBUMIN 3.2 G/DL (3.4-5.0); ALBUMIN/GLOBULIN RATIO 0.8 (1.0-2.7); ALKALINE PHOSPHATASE 82 U/L (46-116); ANION GAP 17 mmol/L (5-15); ASPARTATE AMINO TRANSFERASE 66 U/L (15-37); BILIRUBIN,TOTAL 1.3 MG/DL (0.2-1.0); BLOOD UREA NITROGEN 38 mg/dL (7-18); CALCIUM 9.3 MG/DL (8.5-10.1); CARBON DIOXIDE 21 MMOL/L (21-32); CHLORIDE 104 MMOL/L (98-107); PHOSPHORUS 3.7 MG/DL (2.5-4.9); POTASSIUM 4.2 MMOL/L (3.5-5.1); SODIUM 141 MMOL/L (136-145)
[2020-06-24 07:22] LABS: HEMATOCRIT 35.8 % (42.0-52.0); HEMOGLOBIN 12.2 G/DL (14.2-18.0); MEAN CORPUSCULAR VOLUME 91 FL (80-99); PLATELET COUNT 244 K/UL (150-450); RED BLOOD COUNT 3.95 M/UL (4.70-6.10); RED CELL DISTRIBUTION WIDTH 11.6 % (11.6-14.8); WHITE BLOOD COUNT 5.5 K/UL (4.8-10.8)
--- NOTE | 2020-06-24 07:23 | NUR ---
NURSE HAND-OFF: Important Events on Shift:[pt. kept safe from falls] Patient Status: [stable] Diet: [Regular] Pending Orders: [na] Pending Results/Labs:[eosinophil urine] Pending MD notification:[na] Latest Vital Signs: Temperature 98.8 , Pulse 80 , B/P 130 /61 , Respiratory Rate 22 , O2 SAT 92 , Room Air, O2 Flow Rate . Vital Sign Comment: [stable] Latest Anglin Fall Score: 85 Fall Risk: High Risk Safety Measures: Call light Within Reach, Bed Alarm Zone 1, Side Rails Side Rails x3, Bed position Low and Locked. Fall Precautions: Yellow Socks Yellow Gown Door Sign Patient Fall Education Report given to [ERON Jones].
[2020-06-24 07:35] LABS: BILIRUBIN,DIRECT 0.3 MG/DL (0.0-0.3)
--- NOTE | 2020-06-24 07:59 | NUR ---
NURSE NOTES: Dr. Novak made aware of Troponin results 13.873 awaiting orders.
[2020-06-24] MEDS: Docusate 100mg cap ORAL SCH ×2 (08:27→17:00)
[2020-06-24] MEDS: Tamsulosin 0.4mg cap ORAL SCH ×2 (08:27→20:56)
--- NOTE | 2020-06-24 08:28 | NUR ---
NURSE NOTES: Dr Novak returned call and ordered STAT EKG order and to transfer patient to Telemetry unit noted and carried out.
--- NOTE | 2020-06-24 08:49 | NUR ---
Dr. Novak here to see Patient. Stat EKG being done at this time. Dr. Novak aware of EKG result, Ordered to Transfer Pt. to Telemetry JAY[facility], and notify Dr. Rm of result. Primary Rn aware. Pt. not complaining of any chest pain, B/P stable.
--- NOTE | 2020-06-24 09:20 | NUR ---
NURSE NOTES: Pt came from 4E, report given by Karen LITTLEJOHN. Pt in yellow gown with yellow socks. Vitals taken BP 99/60, 02 97 on 2 liters NC, 73 HR, temp 101.3. Pt complains of "a little" chest pain. Generally lethargic. Soft restraints in place with palpable pulses and no swelling or redness noted. Bed low and locked. Call light within reach. Whiteboard updated.
--- NOTE | 2020-06-24 09:27 | NUR ---
NURSE NOTES: Dr. Novak ordered to transfer pt to telemetry unit and to do a stat EKG noted and carried out. Patient was transferred to telemetry unit at 0910, accepted by ERON Bain. Marzena (next of kin) notified. All belongings were transferred.
[2020-06-24] MEDS ORDERED: D5 1/2NS 1,000 ML IV SCH (10:00)
[2020-06-24] MEDS ORDERED: HydrALAZINE 25mg tab ORAL PRN ×2 (10:10→14:15)
[2020-06-24] MEDS ORDERED: Acetaminophen 500mg (ES) tab ORAL PRN ×2 (10:10→14:15)
[2020-06-24] MEDS ORDERED: Haloperidol 5mg/ml Inj IM PRN ×2 (10:15→16:15)
--- NOTE | 2020-06-24 10:41 | NUR ---
CASE MANAGEMENT:REVIEW SI;TOX METABOLIC ENCEPHALOPATHY. AC/CHR RENAL FAILURE. 101.3 88 22 133/68 91% ON RA WBC 18.4 ANION GAP 17 BUN 38 CR 2 T-BILI 1.3 AST 66 TROP 17.255 CRP 20.8 BNP 70908 IS;IVF D5W @ 75 ML/HR FLOMAX PO BID HALDOL IM Q6 PRN HYDRALAZINE PO Q4 PRN TRANSFERRED FROM MED SURG TO TELE TODAY TELE STATUS DCP;[facility]
--- NOTE | 2020-06-24 10:53 | NUR ---
INSURANCE ALL AVAILABLE CLINICALS AND REVIEWS HAVE BEEN FAXED TO [employer] P: [phone] F: [phone] REF# [id number]
--- NOTE | 2020-06-24 11:30 | NUR ---
HAND-OFF: Report given to Nicolette LITTLEJOHN at ICU. Per Dr. Rm, pt transfered to ICU due to troponin trending up. Addendum: 06/24/20 at 1645 by Taya Anderson RN Nella LITTLEJOHN, NOT Nicolette
--- NOTE | 2020-06-24 11:40 | NUR ---
NURSE NOTES: Received patient from telemetry. Placed comfortably in cardiac bed. Patient appears lethargic, arousable to shaking. Bilateral soft wrist restraints noted. Right AC g18 noted. Bed in lowest position, Bed alarm on. Denies Chest pain at this time. No facial grimace. Will continue plan of care.
--- NOTE | 2020-06-24 12:00 | NUR ---
NURSE NOTES: Tried to remove bilateral soft wrist restraints. Noted patient removing devices attached to him. Bilateral soft wrist restraints reapplied.
--- NOTE | 2020-06-24 12:52 | NUR ---
NURSE NOTES: Dr. Shravan Rodriguez at bedside.
--- NOTE | 2020-06-24 13:05 | Nephrology Progress Note ---
Assessment/Plan Problem List: (1) Leukocytosis (2) Toxic metabolic encephalopathy (3) MARQUIS (acute kidney injury) (4) Renal failure (ARF), acute on chronic (5) Hyperkalemia (6) Hyperkalemia Assessment Acute on chronic renal failure Patient presented with hyperkalemia History of hypertension however presents with borderline low blood pressure Anemia Falls Plan June 24: Patient on his way to ICU due to elevated troponin from almost normal up to 17. Labs reviewed. Ejection fraction around 40%. Continue per cardiology. Continue to monitor renal parameters. June 23: Patient agitated. Pulled the Mcleod out. Will discontinue Mcleod. Labs reviewed. Developed leukocytosis. Will give empirical 1 dose of Rocephin pending ID evaluation. Continue to monitor renal parameters. Continue hydration. Monitor blood pressure. Monitor renal parameters. Per orders. Discussed with RN. Repeat chest x-ray ordered. Subjective ROS Limited/Unobtainable: No Constitutional: Reports: malaise, weakness Objective Objective Last 24 Hour Vital Signs Date Time Temp Pulse Resp B/P (MAP) Pulse Ox O2 Delivery O2 Flow Rate FiO2 06/24/20 12:00 100.0 62 14 107/50 (69) 98 06/24/20 09:00 Room Air 06/24/20 08:00 99.0 83 20 133/68 (89) 93 06/24/20 04:00 98.8 80 22 130/61 (84) 92 06/24/20 00:00 98.1 88 19 126/89 (101) 98 06/23/20 21:00 Room Air 06/23/20 20:00 97.3 86 19 137/70 (92) 91 06/23/20 16:00 97.9 67 18 113/65 (81) 95 Intake and Output 06/23/20 06/24/20 19:00 07:00 Intake Total 580 ml Balance 580 ml Intake Oral 580 ml # Voids 6 2 # Bowel Movements 1 Laboratory Tests 06/24/20 03:06: White Blood Count 5.5#, Red Blood Count 3.95L, Hemoglobin 12.2L, Hematocrit 35.8L, Mean Corpuscular Volume 91, Mean Corpuscular Hemoglobin 30.8, Mean Corpuscular Hemoglobin Concent 34.0, Red Cell Distribution Width 11.6, Platelet Count 244, Mean Platelet Volume 6.3L, Neutrophils (%) (Auto) , Lymphocytes (%) ( Auto) , Monocytes (%) (Auto) , Eosinophils (%) (Auto) , Basophils (%) (Auto) , Differential Total Cells Counted 100, Neutrophils % (Manual) 89H, Lymphocytes % (Manual) 9L, Monocytes % (Manual) 2, Eosinophils % (Manual) 0, Basophils % ( Manual) 0, Band Neutrophils 0, Platelet Estimate Adequate, Platelet Morphology Normal, Red Blood Cell Morphology Normal, Sodium Level 141, Potassium Level 4.2 , Chloride Level 104, Carbon Dioxide Level 21, Anion Gap 17H, Blood Urea Nitrogen 38H, Creatinine 2.0H, Estimat Glomerular Filtration Rate 38.5, Glucose Level 180H, Calcium Level 9.3, Phosphorus Level 3.7, Magnesium Level 1.8, Total Bilirubin 1.3H, Direct Bilirubin 0.3, Aspartate Amino Transf (AST/SGOT) 66H, Alanine Aminotransferase (ALT/SGPT) 31, Alkaline Phosphatase 82, Troponin I 13.873H, C-Reactive Protein, Quantitative 20.8H, Pro-B-Type Natriuretic Peptide 63802R, Total Protein 7.1, Albumin 3.2L, Globulin 3.9, Albumin/Globulin Ratio 0.8L 06/24/20 05:00: Urine Eosinophils None seen 06/24/20 07:32: Arterial Blood pH 7.519H, Arterial Blood Partial Pressure CO2 22.7*L, Arterial Blood Partial Pressure O2 53.3L, Arterial Blood HCO3 18.1L, Arterial Blood Oxygen Saturation 88.5*L, Arterial Blood Base Excess -3.1L, Zach Test Positive 06/24/20 10:05: Troponin I 17.255H Height (Feet): 5 Height (Inches): 6.00 Weight (Pounds): 116 General Appearance: lethargic Cardiovascular: normal rate Respiratory/Chest: decreased breath sounds Abdomen: distended Objective Sage Tamayo MD Jun 24, 2020 13:05
[2020-06-24] MEDS ORDERED: Heparin 25,000u/D5W 500ml 500 ML IV SCH ×2 (13:15→22:00)
--- NOTE | 2020-06-24 13:19 | NUR ---
NURSE NOTES: Dr. Rm at bedside.
[2020-06-24 13:25] LABS: INR 1.1 (0.9-1.1)
--- NOTE | 2020-06-24 13:35 | Pulmonology Progress Note ---
Subjective ROS Limited/Unobtainable: No Allergies: Coded Allergies: No Known Allergies (Unverified , 06/21/20) Objective Last 24 Hour Vital Signs Date Time Temp Pulse Resp B/P (MAP) Pulse Ox O2 Delivery O2 Flow Rate FiO2 06/24/20 13:00 92 22 118/71 (87) 98 06/24/20 12:00 100.0 62 14 107/50 (69) 98 06/24/20 09:00 Room Air 06/24/20 08:00 99.0 83 20 133/68 (89) 93 06/24/20 04:00 98.8 80 22 130/61 (84) 92 06/24/20 00:00 98.1 88 19 126/89 (101) 98 06/23/20 21:00 Room Air 06/23/20 20:00 97.3 86 19 137/70 (92) 91 06/23/20 16:00 97.9 67 18 113/65 (81) 95 Intake and Output 06/23/20 06/24/20 19:00 07:00 Intake Total 580 ml Balance 580 ml Intake Oral 580 ml # Voids 6 2 # Bowel Movements 1 Microbiology Date/Time Source Procedure Growth Status 06/21/20 21:35 Nasal Nares MRSA Culture - Final NO METHICILLIN RESISTANT STAPH AUREUS... Complete 06/21/20 21:35 Nasopharynx SARS-CoV-2 RdRp Gene Assay - Final Complete 06/22/20 00:05 Urine,Clean Catch Urine Culture - Final Mixed Gram Positive Organism Complete 06/21/20 21:50 Arm Left Blood Culture - Preliminary NO GROWTH AFTER 48 HOURS Resulted 06/21/20 21:35 Arm Right Blood Culture - Preliminary NO GROWTH AFTER 48 HOURS Resulted 06/21/20 21:35 Rectum - Final NO CARBAPENEM-RESISTANT ENTEROBACTERI... Complete 06/21/20 21:35 Rectum VRE Culture - Final NO VANCOMYCIN RESISTANT ENTEROCOCCUS ... Complete Laboratory Tests 06/24/20 03:06: White Blood Count 5.5#, Red Blood Count 3.95L, Hemoglobin 12.2L, Hematocrit 35.8L, Mean Corpuscular Volume 91, Mean Corpuscular Hemoglobin 30.8, Mean Corpuscular Hemoglobin Concent 34.0, Red Cell Distribution Width 11.6, Platelet Count 244, Mean Platelet Volume 6.3L, Neutrophils (%) (Auto) , Lymphocytes (%) ( Auto) , Monocytes (%) (Auto) , Eosinophils (%) (Auto) , Basophils (%) (Auto) , Differential Total Cells Counted 100, Neutrophils % (Manual) 89H, Lymphocytes % (Manual) 9L, Monocytes % (Manual) 2, Eosinophils % (Manual) 0, Basophils % ( Manual) 0, Band Neutrophils 0, Platelet Estimate Adequate, Platelet Morphology Normal, Red Blood Cell Morphology Normal, Sodium Level 141, Potassium Level 4.2 , Chloride Level 104, Carbon Dioxide Level 21, Anion Gap 17H, Blood Urea Nitrogen 38H, Creatinine 2.0H, Estimat Glomerular Filtration Rate 38.5, Glucose Level 180H, Calcium Level 9.3, Phosphorus Level 3.7, Magnesium Level 1.8, Total Bilirubin 1.3H, Direct Bilirubin 0.3, Aspartate Amino Transf (AST/SGOT) 66H, Alanine Aminotransferase (ALT/SGPT) 31, Alkaline Phosphatase 82, Troponin I 13.873H, C-Reactive Protein, Quantitative 20.8H, Pro-B-Type Natriuretic Peptide 72371A, Total Protein 7.1, Albumin 3.2L, Globulin 3.9, Albumin/Globulin Ratio 0.8L 06/24/20 05:00: Urine Eosinophils None seen 06/24/20 07:32: Arterial Blood pH 7.519H, Arterial Blood Partial Pressure CO2 22.7*L, Arterial Blood Partial Pressure O2 53.3L, Arterial Blood HCO3 18.1L, Arterial Blood Oxygen Saturation 88.5*L, Arterial Blood Base Excess -3.1L, Zach Test Positive 06/24/20 10:05: Troponin I 17.255H 06/24/20 12:55: Prothrombin Time [Pending], Prothromb Time International Ratio [Pending], Activated Partial Thromboplast Time [Pending] Current Medications Medications (Trade) Dose Ordered Sig/Vanessa Route PRN Reason Start Time Stop Time Status Last Admin Dose Admin Acetaminophen (Tylenol) 500 mg Q4H PRN ORAL Mild Pain (Pain Scale 1-3) 06/24/20 14:15 07/22/20 10:09 Acetaminophen (Tylenol) 650 mg Q4H PRN ORAL Fever over 100.4 06/24/20 14:00 07/24/20 09:59 Aspirin (ASA) 81 mg DAILY ORAL 06/25/20 09:00 08/09/20 08:59 Atorvastatin Calcium (Lipitor) 80 mg BEDTIME ORAL 06/24/20 21:00 09/22/20 20:59 Ceftriaxone Sodium 1 gm/ Dextrose 55 ml @ 110 mls/hr Q24H IVPB 06/24/20 13:00 07/01/20 12:59 Dextrose/Sodium Chloride 1,000 ml @ 75 mls/hr [id number] IV 06/24/20 12:00 07/22/20 00:00 Docusate Sodium (Colace) 100 mg BID ORAL 06/24/20 18:00 07/22/20 08:59 Haloperidol Lactate (Haldol) 5 mg Q6H PRN IM Agitation 06/24/20 16:15 08/07/20 10:14 Heparin Sodium/ Dextrose 500 ml @ 12.628 mls/ hr ADJUST PER PROTOCOL IV 06/24/20 13:15 07/24/20 13:14 UNV Hydralazine HCl (Apresoline) 25 mg Q4H PRN ORAL bp over 160 syst 06/24/20 14:15 09/19/20 10:09 Metoprolol Tartrate (Lopressor) 12.5 mg Q12HR ORAL 06/24/20 21:00 09/22/20 20:59 Tamsulosin HCl (Flomax) 0.4 mg BID ORAL 06/24/20 18:00 07/23/20 12:44 Assessment/Plan Assessment/Plan Pulmonary Progress Note HPI: This is an 84-year-old male sent from nursing facility after an apparent fall. Hyperkalemia, elevated troponin, now tf to ICU, previously borderline low BP Cardiology following PAST MEDICAL HISTORY: Notable for previous COVID-19 positivity and hypertension. ALLERGIES: None reported. CODE STATUS: DNR. REVIEW OF SYSTEMS: Unreliable. PHYSICAL EXAMINATION: GENERAL: No distress VITAL SIGNS NOTED HEENT: Unremarkable. CHEST: Shows clear breath sounds bilaterally with normal heart sounds. ABDOMEN: Soft. EXTREMITIES: There is no edema. LABORATORY DATA NOTED IMAGING STUDIES: Head CT is negative as was cervical spine CT. IMPRESSION: 1. Status post fall, no acute injury CT head/neck 2. History of COVID-19 pneumonia. 3. Scalp laceration. 4. Renal insufficiency. 5. Anemia. 6. Hyperkalemia 7. Elevated troponin PLAN: Continue current management Cardiology following Currently saturating well on room air PPXMonitor labs Balfe,Sree MD Jun 24, 2020 13:35
[2020-06-24] MEDS: cefTRIAXone 1 GM in D5W 55 ML IVPB SCH (13:56)
--- NOTE | 2020-06-24 14:30 | Consultation ---
DATE OF CONSULTATION: 06/24/2020 INFECTIOUS DISEASES CONSULTATION CONSULTING PHYSICIAN: Shravan Rodriguez MD. PRIMARY ATTENDING PHYSICIAN: Jefferson Novak MD. REASON FOR CONSULTATION: Fever, pneumonia. HISTORY OF PRESENT ILLNESS: This is an 84-year-old male, admitted on June 21, 2020, from a [facility] facility after a fall. He suffered a head laceration and the patient was found to have systolic and diastolic heart failure. He had a recent COVID pneumonia in May 2020, positive testing in [facility]. The patient has had no current chest x- ray in the baseline, but developed fever today, T-max is 101.3. The patient was transferred to ICU because of elevation of troponin and acute AL. PAST MEDICAL HISTORY: Chronic kidney disease, anemia, COVID-19, dementia, hypertension, gastroesophageal reflux disease. SOCIAL HISTORY: [facility] resident. Single. No history of alcohol, drug abuse, or smoking. REVIEW OF SYSTEMS: Not obtainable. The patient is lethargic. PHYSICAL EXAMINATION: VITAL SIGNS: T-max 101.3, pulse 83, blood pressure 133/68. GENERAL APPEARANCE: No acute distress. Seems to be underweight. HEAD AND NECK: Getting oxygen by nasal cannula. HEART: Normal rate. LUNGS: Clear. ABDOMEN: Flat, soft, nontender. EXTREMITY: Has no edema. LABORATORY AND DIAGNOSTIC DATA: Sodium 141, potassium 4.2, chloride 104, bicarb 21, BUN 38, creatinine 2. Troponin, the first set was 13.8, the second one is 17.255. EKG showed lateral ST elevation, right bundle-branch block. Labs, WBC 5.5, yesterday WBC was 18.4, hemoglobin 12.2, hematocrit 35.8, and platelets 244,000. Albumin is 3.2. Chest x-ray showed bilateral congestion, edema, infection, inflammatory process. UA showed rbc too numerous to count, wbc 10 to 30. Urine culture showed mixed bao. Blood culture x2 negative. COVID test at the time of admission was negative. VRE, MRSA screen negative. IMPRESSION: Fever, pneumonia, pulmonary edema, acute renal failure, chronic kidney disease, acute ST-elevation AL, anemia. RECOMMENDATION: We will follow up the blood culture. We will obtain UA and urine culture. We should start the patient empirically on ceftriaxone. Cardiology evaluation is pending. At the end of my exam, I thank Dr. Novak for involving me in the care of this patient. Shravan Rodriguez M.D. DR: NIKA JOB#: [id number] CC: ARTURO
--- NOTE | 2020-06-24 14:36 | Cardiac Electrophysiology PN ---
Subjective Subjective [id number] Objective Last 24 Hour Vital Signs Date Time Temp Pulse Resp B/P (MAP) Pulse Ox O2 Delivery O2 Flow Rate FiO2 06/24/20 13:00 92 22 118/71 (87) 98 06/24/20 12:00 100.0 62 14 107/50 (69) 98 06/24/20 09:00 Room Air 06/24/20 08:00 99.0 83 20 133/68 (89) 93 06/24/20 04:00 98.8 80 22 130/61 (84) 92 06/24/20 00:00 98.1 88 19 126/89 (101) 98 06/23/20 21:00 Room Air 06/23/20 20:00 97.3 86 19 137/70 (92) 91 06/23/20 16:00 97.9 67 18 113/65 (81) 95 Intake and Output 06/23/20 06/24/20 19:00 07:00 Intake Total 580 ml Balance 580 ml Intake Oral 580 ml # Voids 6 2 # Bowel Movements 1 Laboratory Tests Test 06/24/20 03:06 06/24/20 05:00 06/24/20 07:32 06/24/20 10:05 White Blood Count 5.5 K/UL (4.8-10.8) # Red Blood Count 3.95 M/UL (4.70-6.10) L Hemoglobin 12.2 G/DL (14.2-18.0) L Hematocrit 35.8 % (42.0-52.0) L Mean Corpuscular Volume 91 FL (80-99) Mean Corpuscular Hemoglobin 30.8 PG (27.0-31.0) Mean Corpuscular Hemoglobin Concent 34.0 G/DL (32.0-36.0) Red Cell Distribution Width 11.6 % (11.6-14.8) Platelet Count 244 K/UL (150-450) Mean Platelet Volume 6.3 FL (6.5-10.1) L Neutrophils (%) (Auto) % (45.0-75.0) Lymphocytes (%) (Auto) % (20.0-45.0) Monocytes (%) (Auto) % (1.0-10.0) Eosinophils (%) (Auto) % (0.0-3.0) Basophils (%) (Auto) % (0.0-2.0) Differential Total Cells Counted 100 Neutrophils % (Manual) 89 % (45-75) H Lymphocytes % (Manual) 9 % (20-45) L Monocytes % (Manual) 2 % (1-10) Eosinophils % (Manual) 0 % (0-3) Basophils % (Manual) 0 % (0-2) Band Neutrophils 0 % (0-8) Platelet Estimate Adequate Platelet Morphology Normal Red Blood Cell Morphology Normal Sodium Level 141 MMOL/L (136-145) Potassium Level 4.2 MMOL/L (3.5-5.1) Chloride Level 104 MMOL/L (98-107) Carbon Dioxide Level 21 MMOL/L (21-32) Anion Gap 17 mmol/L (5-15) H Blood Urea Nitrogen 38 mg/dL (7-18) H Creatinine 2.0 MG/DL (0.55-1.30) H Estimat Glomerular Filtration Rate 38.5 mL/min (>60) Glucose Level 180 MG/DL (74-106) H Calcium Level 9.3 MG/DL (8.5-10.1) Phosphorus Level 3.7 MG/DL (2.5-4.9) Magnesium Level 1.8 MG/DL (1.8-2.4) Total Bilirubin 1.3 MG/DL (0.2-1.0) H Direct Bilirubin 0.3 MG/DL (0.0-0.3) Aspartate Amino Transf (AST/SGOT) 66 U/L (15-37) H Alanine Aminotransferase (ALT/SGPT) 31 U/L (12-78) Alkaline Phosphatase 82 U/L (46-116) Troponin I 13.873 ng/mL (0.000-0.056) 17.255 ng/mL (0.000-0.056) C-Reactive Protein, Quantitative 20.8 mg/dL (0.00-0.90) H Pro-B-Type Natriuretic Peptide 59876 pg/mL (0-125) H Total Protein 7.1 G/DL (6.4-8.2) Albumin 3.2 G/DL (3.4-5.0) L Globulin 3.9 g/dL Albumin/Globulin Ratio 0.8 (1.0-2.7) L Urine Eosinophils None seen (NONE SEEN) Arterial Blood pH 7.519 (7.350-7.450) Arterial Blood Partial Pressure CO2 22.7 mmHg (35.0-45.0) *L Arterial Blood Partial Pressure O2 53.3 mmHg (75.0-100.0) L Arterial Blood HCO3 18.1 mmol/L (22.0-26.0) L Arterial Blood Oxygen Saturation 88.5 % (95-100) *L Arterial Blood Base Excess -3.1 (-2-2) L Zach Test Positive Test 06/24/20 12:55 Prothrombin Time 12.2 SEC (9.30-11.50) H Prothromb Time International Ratio 1.1 (0.9-1.1) Activated Partial Thromboplast Time 33 SEC (23-33) Microbiology Date/Time Source Procedure Growth Status 06/21/20 21:35 Nasal Nares MRSA Culture - Final NO METHICILLIN RESISTANT STAPH AUREUS... Complete 06/21/20 21:35 Nasopharynx SARS-CoV-2 RdRp Gene Assay - Final Complete 06/22/20 00:05 Urine,Clean Catch Urine Culture - Final Mixed Gram Positive Organism Complete 06/21/20 21:50 Arm Left Blood Culture - Preliminary NO GROWTH AFTER 48 HOURS Resulted 06/21/20 21:35 Arm Right Blood Culture - Preliminary NO GROWTH AFTER 48 HOURS Resulted 06/21/20 21:35 Rectum - Final NO CARBAPENEM-RESISTANT ENTEROBACTERI... Complete 06/21/20 21:35 Rectum VRE Culture - Final NO VANCOMYCIN RESISTANT ENTEROCOCCUS ... Complete Mor Rm MD Jun 24, 2020 14:36
--- NOTE | 2020-06-24 15:40 | NUR ---
NURSE NOTES: Informed Dr. Novak that patient is having urinary retention. 300 ML urine output noted when bajwa was inserted. Dr. Novak said to keep the bajwa catheter.
[2020-06-24 16:23] LABS: APPEARANCE,URINE TURBID; COLOR,URINE YELLOW
[2020-06-24 16:24] LABS: BILIRUBIN, URINE NEGATIVE (NEGATIVE); GLUCOSE, URINE (UA) NEGATIVE (NEGATIVE); KETONES,URINE 1+ (NEGATIVE); LEUKOCYTE ESTERASE ,URINE 3+ (NEGATIVE); NITRITE,URINE POSITIVE (NEGATIVE); PROTEIN,URINE 1+ (NEGATIVE); UROBILINOGEN,URINE NORMAL MG/DL (0.0-1.0)
--- NOTE | 2020-06-24 16:30 | NUR ---
NURSE NOTES: Marzena Pool/Patient's Niece in the unit. Visiting patient. She is aware that patient is DNR.
--- NOTE | 2020-06-24 17:00 | NUR ---
NURSE NOTES: Bed bath provided. 1 Large bowel movement noted at this time. Skin remains intact.
[2020-06-24] MEDS ORDERED: Tamsulosin 0.4mg cap ORAL SCH ×2 (18:00)
[2020-06-24] MEDS ORDERED: Docusate 100mg cap ORAL SCH (18:00)
--- NOTE | 2020-06-24 18:00 | Consultation ---
DATE OF CONSULTATION: 06/24/2020 CARDIOLOGY CONSULTATION CONSULTING PHYSICIAN: Mor Rm MD. REFERRING PHYSICIAN: Jefferson Novak MD. REASON FOR CONSULTATION: Non-ST elevation myocardial infarction. HISTORY OF PRESENT ILLNESS: Patient is an 84-year-old gentleman with history of hypertension, dementia, iron deficiency anemia who was admitted for status post fall, found to have hyperkalemia with peaked T-waves. Patient was not able to provide any meaningful information. Patient is from the residential. Patient did not have any chest pain or shortness of breath. Patient was originally admitted to a non-monitored bed. Patient had positive coronavirus testing in the past. rapid test is negative. Patient's initial troponin was 13 and was transferred to telemetry. A followup troponin was 17. A Cardiology consultation was obtained for further evaluation. At the time of my evaluation, the patient was already transferred to ICU. He has been confused, in restraints. He is unable to provide any meaningful information. Patient also has renal failure with BUN of 52, creatinine of 1.9. REVIEW OF SYSTEMS: Negative other than what is mentioned in the history of present illness. PAST MEDICAL HISTORY: As mentioned above. FAMILY HISTORY: Noncontributory. SOCIAL HISTORY: He lives in residential. Does not smoke or drink alcohol. PHYSICAL EXAMINATION: VITAL SIGNS: Blood pressure 118/71, pulse is 92, temperature is 100. HEAD AND NECK: No JVD. LUNGS: Coarse rhonchi. CARDIOVASCULAR: Shows regular S1 and S2 with no gallop. ABDOMEN: Soft. EXTREMITIES: No pitting edema. LABORATORY AND DIAGNOSTIC DATA: His labs show sodium 141, potassium 4.2, BUN of 38, creatinine of 2, and glucose of 180. Troponin is originally negative on 06/21/2020, on 06/24/2020 was 13.87 at 3 a.m. and at 10 a.m. was 17.2. His EKG showed sinus rhythm, right bundle-branch block, and lateral infarct. ASSESSMENT AND PLAN: 1. Acute non-ST elevation myocardial infarction with troponin of 17. Patient is DNR. Partially may be due to renal failure or due to COVID myocarditis in view of patient's recent COVID. I will treat the patient medically with aspirin 81 mg daily, metoprolol 12.5 b.i.d., and Lipitor 80 mg at bedtime. We will follow up troponin and get an echocardiogram for further evaluation. 2. History of recent COVID. 3. Dementia. 4. Renal failure and hyperkalemia. 5. Contusion. Thank you very much for allowing me to participate in the care of this patient. Please do not hesitate to contact me for any questions regarding my evaluation. Mor Rm M.D. DR: JEROME JOB#: [id number] CC:
--- NOTE | 2020-06-24 19:30 | NUR ---
NURSE HAND-OFF REPORT: Latest Vital Signs: Temperature 99.8 , Pulse 61 , B/P 90 /58 , Respiratory Rate 16 , O2 SAT 100 , Nasal Cannula, O2 Flow Rate 2.0 . Vital Sign Comment: On continuous heparin drip 12 units/hour. EKG Rhythm: Sinus Rhythm Rhythm change?: N MD Notified?: Response: Dr. Rm aware of latest troponin level. Latest Anglin Fall Score: 85 Fall Risk: High Risk Safety Measures: Call light Within Reach, Bed Alarm Zone 1, Side Rails Side Rails x2, Bed position Low and Locked. Fall Precautions: Yellow Socks Yellow Gown Door Sign Patient Fall Education Patient is for PTT at 2049. Report given to Chris Richard RN.
--- NOTE | 2020-06-24 20:00 | NUR ---
NURSE NOTES: received report from marcio murray awake and alert jesus manuel soft restraint nan complaint hr 75 on sr no c/o chest pain or sob on heparin drip at 12unit/kg/hr reposition and suction
[2020-06-24] MEDS: Atorvastatin 80mg tab ORAL SCH (20:55)
[2020-06-24] MEDS: Metoprolol Tartrate 12.5mg TAB ORAL SCH (20:56)
--- NOTE | 2020-06-24 22:00 | NUR ---
NURSE NOTES: heparin drip>16unit /kg/hr and bolos heparin 4000 unit ivp per protocal and DR ARIAS WAS NOTIFY WITH TROPONIN 11.971
[2020-06-24] MEDS ORDERED: Heparin 5000 units/ml inj SUBQ SCH (22:15)
[2020-06-25] VITALS (32 sets, daily range): BP systolic 86–130; BP diastolic 31–84
--- NOTE | 2020-06-25 | NUR ---
NURSE NOTES: asleep no acute distress noted
--- NOTE | 2020-06-25 00:07 | General Progress Note ---
Assessment/Plan Problem List: (1) Hyperkalemia ICD Codes: E87.5 - Hyperkalemia SNOMED: 60498186, 000829160 (2) Renal insufficiency ICD Codes: N28.9 - Disorder of kidney and ureter, unspecified SNOMED: 795981565, 820326934 (3) Hyperkalemia ICD Codes: E87.5 - Hyperkalemia SNOMED: 34556208 (4) Leukocytosis ICD Codes: D72.829 - Elevated white blood cell count, unspecified SNOMED: 250785523, 564481833 (5) MARQUIS (acute kidney injury) ICD Codes: N17.9 - Acute kidney failure, unspecified SNOMED: 1464388, 89350054 (6) Renal failure (ARF), acute on chronic ICD Codes: N17.9 - Acute kidney failure, unspecified; N18.9 - Chronic kidney disease, unspecified SNOMED: 378149228 (7) Toxic metabolic encephalopathy ICD Codes: G92 - Toxic encephalopathy SNOMED: 791143807 Status: progressing Assessment/Plan: late entry: confused agitated at times s/p fall TX elevated trop .transferred to icu also had fever septic Subjective ROS Limited/Unobtainable: Yes Allergies: Coded Allergies: No Known Allergies (Unverified , 06/21/20) Objective Last 24 Hour Vital Signs Date Time Temp Pulse Resp B/P (MAP) Pulse Ox O2 Delivery O2 Flow Rate FiO2 06/24/20 23:00 72 18 91/45 (60) 98 06/24/20 22:30 60 15 113/81 (92) 97 06/24/20 22:00 62 15 93/46 (62) 98 06/24/20 21:30 80 19 133/51 (78) 99 06/24/20 21:00 72 15 101/46 (64) 100 06/24/20 20:56 77 111/43 06/24/20 20:30 80 21 111/43 (65) 99 06/24/20 20:00 98.5 79 19 118/52 (74) 99 06/24/20 20:00 Nasal Cannula 2.0 06/24/20 20:00 75 06/24/20 19:00 61 16 90/58 (69) 100 06/24/20 18:30 63 15 97/50 (66) 99 06/24/20 18:00 64 15 112/66 (81) 100 06/24/20 17:30 76 17 90/45 (60) 99 06/24/20 17:00 59 14 77/47 (57) 100 06/24/20 16:30 59 15 120/52 (74) 06/24/20 16:00 99.8 90 19 119/88 (98) 06/24/20 16:00 Nasal Cannula 2.0 06/24/20 15:30 92 20 136/74 (94) 88 06/24/20 15:14 63 06/24/20 15:00 63 15 90/43 (59) 98 06/24/20 14:30 98 20 123/85 (98) 96 06/24/20 14:00 81 20 92/55 (67) 100 06/24/20 13:00 92 22 118/71 (87) 98 06/24/20 12:11 71 06/24/20 12:00 100.0 62 14 107/50 (69) 98 06/24/20 12:00 Nasal Cannula 2.0 06/24/20 09:00 Room Air 06/24/20 08:00 99.0 83 20 133/68 (89) 93 06/24/20 04:00 98.8 80 22 130/61 (84) 92 Intake and Output 06/24/20 06/25/20 19:00 07:00 Intake Total 558.032 ml 225 ml Output Total 410 ml 390 ml Balance 148.032 ml -165 ml Intake Oral 0 ml IV Total 558.032 ml 225 ml Output Urine Total 410 ml 390 ml # Voids 1 # Bowel Movements 2 1 Laboratory Tests 06/24/20 03:06: White Blood Count 5.5#, Red Blood Count 3.95L, Hemoglobin 12.2L, Hematocrit 35.8L, Mean Corpuscular Volume 91, Mean Corpuscular Hemoglobin 30.8, Mean Corpuscular Hemoglobin Concent 34.0, Red Cell Distribution Width 11.6, Platelet Count 244, Mean Platelet Volume 6.3L, Neutrophils (%) (Auto) , Lymphocytes (%) ( Auto) , Monocytes (%) (Auto) , Eosinophils (%) (Auto) , Basophils (%) (Auto) , Differential Total Cells Counted 100, Neutrophils % (Manual) 89H, Lymphocytes % (Manual) 9L, Monocytes % (Manual) 2, Eosinophils % (Manual) 0, Basophils % ( Manual) 0, Band Neutrophils 0, Platelet Estimate Adequate, Platelet Morphology Normal, Red Blood Cell Morphology Normal, Sodium Level 141, Potassium Level 4.2 , Chloride Level 104, Carbon Dioxide Level 21, Anion Gap 17H, Blood Urea Nitrogen 38H, Creatinine 2.0H, Estimat Glomerular Filtration Rate 38.5, Glucose Level 180H, Calcium Level 9.3, Phosphorus Level 3.7, Magnesium Level 1.8, Total Bilirubin 1.3H, Direct Bilirubin 0.3, Aspartate Amino Transf (AST/SGOT) 66H, Alanine Aminotransferase (ALT/SGPT) 31, Alkaline Phosphatase 82, Troponin I 13.873H, C-Reactive Protein, Quantitative 20.8H, Pro-B-Type Natriuretic Peptide 08545S, Total Protein 7.1, Albumin 3.2L, Globulin 3.9, Albumin/Globulin Ratio 0.8L 06/24/20 05:00: Urine Eosinophils None seen 06/24/20 07:32: Arterial Blood pH 7.519H, Arterial Blood Partial Pressure CO2 22.7*L, Arterial Blood Partial Pressure O2 53.3L, Arterial Blood HCO3 18.1L, Arterial Blood Oxygen Saturation 88.5*L, Arterial Blood Base Excess -3.1L, Zach Test Positive 06/24/20 10:05: Troponin I 17.255H 06/24/20 12:55: Prothrombin Time 12.2H, Prothromb Time International Ratio 1.1, Activated Partial Thromboplast Time 33 06/24/20 15:10: Urine Color Yellow, Urine Appearance Turbid, Urine pH 5.0, Urine Specific Gordon 1.015, Urine Protein 1+H, Urine Glucose (UA) Negative, Urine Ketones 1+H , Urine Blood 5+H, Urine Nitrite PositiveH, Urine Bilirubin Negative, Urine Urobilinogen Normal, Urine Leukocyte Esterase 3+H, Urine RBC TntcH, Urine WBC TntcH, Urine Squamous Epithelial Cells Occasional, Urine Bacteria ManyH 06/24/20 21:05: Activated Partial Thromboplast Time 39H, Troponin I 11.971H Height (Feet): 5 Height (Inches): 6.00 Weight (Pounds): 116 Jefferson Novak MD Jun 25, 2020 00:07
[2020-06-25] MEDS: D5 1/2NS 1,000 ML IV SCH ×2 (02:18→15:16)
--- NOTE | 2020-06-25 04:00 | NUR ---
NURSE NOTES: complete bed bath oral care and back care done
[2020-06-25] MEDS ORDERED: Heparin 25,000u/D5W 500ml 500 ML IV SCH ×3 (06:00→14:00)
[2020-06-25] MEDS ORDERED: Heparin 5000 units/ml inj IV SCH ×2 (06:00→14:00)
--- NOTE | 2020-06-25 06:00 | NUR ---
NURSE NOTES: ptt 57 2000 unit bolos heparin ivp and heparin drip at 18 unit /kg/hr and ptt [id number] order
--- NOTE | 2020-06-25 07:28 | NUR ---
6HAND-OFF: Report given to .jing murray sbar
--- NOTE | 2020-06-25 07:30 | NUR ---
NURSE NOTES: Report received from Enrike LITTLEJOHN.Pt asleep ,noted no resp distress on 2 L NC,easily awakens with verbal command,denies any c/o chest pain or discomfort,SR on the monitor,[facility] cath draining yellow urine,skin warm and dry IV site to Lt arm intact with Heparin drip at 16 u/kg/hr,bilat wrist restraints in placed for safety,pt has a tendency of grabbing IV line,SR up x2 HOB elevated bed lock in lowest position,will continue with plans of care .
[2020-06-25] MEDS ORDERED: Aspirin Baby 81mg ORAL SCH (09:00)
[2020-06-25 09:08] LABS: ALANINE AMINOTRANSFERASE 39 U/L (12-78); ALBUMIN 2.4 G/DL (3.4-5.0); ALBUMIN/GLOBULIN RATIO 0.7 (1.0-2.7); ALKALINE PHOSPHATASE 61 U/L (46-116); ANION GAP 12 mmol/L (5-15); ASPARTATE AMINO TRANSFERASE 78 U/L (15-37); BILIRUBIN,TOTAL 0.5 MG/DL (0.2-1.0); BLOOD UREA NITROGEN 44 mg/dL (7-18); CALCIUM 8.1 MG/DL (8.5-10.1); CARBON DIOXIDE 22 MMOL/L (21-32); CHLORIDE 107 MMOL/L (98-107); CREATININE 1.8 MG/DL (0.55-1.30); PHOSPHORUS 3.2 MG/DL (2.5-4.9); POTASSIUM 3.7 MMOL/L (3.5-5.1); SODIUM 140 MMOL/L (136-145)
[2020-06-25] MEDS: Tamsulosin 0.4mg cap ORAL SCH ×2 (09:18→20:27)
[2020-06-25] MEDS: Metoprolol Tartrate 12.5mg TAB ORAL SCH ×2 (09:18→20:29)
[2020-06-25] MEDS: Docusate 100mg cap ORAL SCH ×2 (09:19→17:16)
--- NOTE | 2020-06-25 09:22 | Nephrology Progress Note ---
Assessment/Plan Problem List: (1) Leukocytosis (2) Toxic metabolic encephalopathy (3) MARQUIS (acute kidney injury) (4) Renal failure (ARF), acute on chronic (5) Hyperkalemia (6) Hyperkalemia (7) Non-ST elevation [place] (NSTEMI) Assessment Acute on chronic renal failure Patient presented with hyperkalemia History of hypertension however presents with borderline low blood pressure Anemia Falls Plan June 25: Patient in ICU. Hemodynamically stable. Serum creatinine 1.8. Continue per current management. Continue to monitor renal parameters. Patient DNR. June 24: Patient on his way to ICU due to elevated troponin from almost normal up to 17. Labs reviewed. Ejection fraction around 40%. Continue per cardiology. Continue to monitor renal parameters. June 23: Patient agitated. Pulled the Mcleod out. Will discontinue Mcleod. Labs reviewed. Developed leukocytosis. Will give empirical 1 dose of Rocephin pending ID evaluation. Continue to monitor renal parameters. Continue hydration. Monitor blood pressure. Monitor renal parameters. Per orders. Discussed with RN. Repeat chest x-ray ordered. Subjective ROS Limited/Unobtainable: No Constitutional: Reports: malaise Objective Objective Last 24 Hour Vital Signs Date Time Temp Pulse Resp B/P (MAP) Pulse Ox O2 Delivery O2 Flow Rate FiO2 06/25/20 09:18 67 109/44 06/25/20 08:00 98.0 67 15 109/44 (65) 100 06/25/20 07:00 63 15 92/56 (68) 100 06/25/20 06:30 68 15 120/39 (66) 100 06/25/20 06:00 70 14 101/53 (69) 100 06/25/20 05:30 68 13 88/43 (58) 100 06/25/20 05:00 72 16 95/40 (58) 100 06/25/20 04:30 69 14 114/38 (63) 100 06/25/20 04:00 98.8 68 16 106/44 (64) 100 06/25/20 04:00 85 06/25/20 03:30 66 20 119/31 (60) 98 06/25/20 03:00 63 15 86/40 (55) 100 06/25/20 02:30 64 15 87/40 (56) 100 06/25/20 02:00 65 16 130/76 (94) 100 06/25/20 01:30 66 15 96/49 (65) 100 06/25/20 01:30 66 15 96/49 (65) 100 06/25/20 01:13 65 16 92/47 (62) 99 06/25/20 01:00 67 16 88/35 (52) 100 06/25/20 01:00 67 16 92/35 (54) 100 06/25/20 00:30 75 18 102/54 (70) 100 06/25/20 00:30 75 18 102/54 (70) 100 06/25/20 00:00 Nasal Cannula 2.0 06/25/20 00:00 98.8 80 20 118/54 (75) 96 06/25/20 00:00 80 06/25/20 00:00 80 20 118/54 (75) 96 06/25/20 00:00 80 20 118/54 (75) 96 06/24/20 23:00 72 18 91/45 (60) 98 06/24/20 22:30 60 15 113/81 (92) 97 06/24/20 22:00 62 15 93/46 (62) 98 06/24/20 21:30 80 19 133/51 (78) 99 06/24/20 21:00 72 15 101/46 (64) 100 06/24/20 20:56 77 111/43 06/24/20 20:30 80 21 111/43 (65) 99 06/24/20 20:00 98.5 79 19 118/52 (74) 99 06/24/20 20:00 Nasal Cannula 2.0 06/24/20 20:00 75 06/24/20 19:00 61 16 90/58 (69) 100 06/24/20 18:30 63 15 97/50 (66) 99 06/24/20 18:00 64 15 112/66 (81) 100 06/24/20 17:30 76 17 90/45 (60) 99 06/24/20 17:00 59 14 77/47 (57) 100 06/24/20 16:30 59 15 120/52 (74) 06/24/20 16:00 99.8 90 19 119/88 (98) 06/24/20 16:00 Nasal Cannula 2.0 06/24/20 15:30 92 20 136/74 (94) 88 06/24/20 15:14 63 06/24/20 15:00 63 15 90/43 (59) 98 06/24/20 14:30 98 20 123/85 (98) 96 06/24/20 14:00 81 20 92/55 (67) 100 06/24/20 13:00 92 22 118/71 (87) 98 06/24/20 12:11 71 06/24/20 12:00 100.0 62 14 107/50 (69) 98 06/24/20 12:00 Nasal Cannula 2.0 Intake and Output 06/24/20 06/25/20 19:00 07:00 Intake Total 558.032 ml 1053.638 ml Output Total 410 ml 985 ml Balance 148.032 ml 68.638 ml Intake Oral 0 ml IV Total 558.032 ml 1053.638 ml Output Urine Total 410 ml 985 ml # Voids 1 # Bowel Movements 2 3 Current Medications Medications (Trade) Dose Ordered Sig/Vanessa Route PRN Reason Start Time Stop Time Status Last Admin Dose Admin Acetaminophen (Tylenol) 500 mg Q4H PRN ORAL Mild Pain (Pain Scale 1-3) 06/24/20 14:15 07/22/20 10:09 Acetaminophen (Tylenol) 650 mg Q4H PRN ORAL Fever over 100.4 06/24/20 14:00 07/24/20 09:59 Aspirin (ASA) 81 mg DAILY ORAL 06/25/20 09:00 08/09/20 08:59 06/25/20 09:18 Atorvastatin Calcium (Lipitor) 80 mg BEDTIME ORAL 06/24/20 21:00 09/22/20 20:59 06/24/20 20:55 Ceftriaxone Sodium 1 gm/ Dextrose 55 ml @ 110 mls/hr Q24H IVPB 06/24/20 13:00 07/01/20 12:59 06/24/20 13:56 Dextrose/Sodium Chloride 1,000 ml @ 75 mls/hr [id number] IV 06/24/20 12:00 07/22/20 00:00 06/25/20 02:18 Docusate Sodium (Colace) 100 mg BID ORAL 06/24/20 18:00 07/22/20 08:59 06/25/20 09:19 Haloperidol Lactate (Haldol) 5 mg Q6H PRN IM Agitation 06/24/20 16:15 08/07/20 10:14 Heparin Sodium/ Dextrose 500 ml @ 18.942 mls/ hr ADJUST PER PROTOCOL IV 06/25/20 06:00 07/24/20 13:14 06/25/20 06:08 Hydralazine HCl (Apresoline) 25 mg Q4H PRN ORAL bp over 160 syst 06/24/20 14:15 09/19/20 10:09 Metoprolol Tartrate (Lopressor) 12.5 mg Q12HR ORAL 06/24/20 21:00 09/22/20 20:59 06/25/20 09:18 Pantoprazole (Protonix) 40 mg DAILY ORAL 06/24/20 20:30 07/24/20 20:29 06/25/20 09:18 Tamsulosin HCl (Flomax) 0.4 mg EVERY 12 HOURS ORAL 06/24/20 21:00 07/23/20 12:44 06/25/20 09:18 Laboratory Tests 06/24/20 10:05: Troponin I 17.255H 06/24/20 12:55: Prothrombin Time 12.2H, Prothromb Time International Ratio 1.1, Activated Partial Thromboplast Time 33 06/24/20 15:10: Urine Color Yellow, Urine Appearance Turbid, Urine pH 5.0, Urine Specific [place] 1.015, Urine Protein 1+H, Urine Glucose (UA) Negative, Urine Ketones 1+H , Urine Blood 5+H, Urine Nitrite PositiveH, Urine Bilirubin Negative, Urine Urobilinogen Normal, Urine Leukocyte Esterase 3+H, Urine RBC TntcH, Urine WBC TntcH, Urine Squamous Epithelial Cells Occasional, Urine Bacteria ManyH 06/24/20 21:05: Troponin I 11.971H, Activated Partial Thromboplast Time 39H 06/25/20 04:26: Activated Partial Thromboplast Time 57H, Sodium Level 140, Potassium Level 3.7, Chloride Level 107, Carbon Dioxide Level 22, Anion Gap 12, Blood Urea Nitrogen 44H, Creatinine 1.8H, Estimat Glomerular Filtration Rate 43.6, Glucose Level 118H, Calcium Level 8.1L, Phosphorus Level 3.2, Magnesium Level 2.0, Total Bilirubin 0.5, Aspartate Amino Transf (AST/SGOT) 78H, Alanine Aminotransferase ( ALT/SGPT) 39, Alkaline Phosphatase 61, Troponin I 9.716H, Total Protein 5.8L, Albumin 2.4L, Globulin 3.4, Albumin/Globulin Ratio 0.7L Height (Feet): 5 Height (Inches): 6.00 Weight (Pounds): 120 General Appearance: no apparent distress, lethargic Cardiovascular: normal rate Respiratory/Chest: decreased breath sounds Abdomen: distended Sage Up MD Jun 25, 2020 09:21
--- NOTE | 2020-06-25 09:39 | NUR ---
FINANCIAL RECRUITER NOTE Pt being seen for FINANCIAL RECRUITER dysphagia intervention, initial bedside evaluation completed on 06/22/20. Chart reviewed in preparation for FINANCIAL RECRUITER therapy session. Pt downgraded to ICU on 06/24/20. MD to re-refer Pt to FINANCIAL RECRUITER s/p transfer to a higher level of care to re-evaluate Pt's swallowing function and safety and determine Pt's safest and least restrictive diet s/p change in medical status. Thank you for this referral! FINANCIAL RECRUITER [phone]
[2020-06-25] MEDS ORDERED: D5 1/2NS 1000ml IV ONE (09:58)
--- NOTE | 2020-06-25 10:02 | Consultation ---
History of Present Illness General Date patient seen: Jun 25, 2020 Time patient seen: 10:00 - am Chief Complaint: NSTEMI Referring physician: Kishore Reason for Consultation: Pain Management Present Illness HPI HISTORY OF PRESENT ILLNESS: This is a 84 y/o male seen in the [place] [facility] [place] management consultation. Patient admitted under the care of Dr. Novak from [facility]. Patient is in bed with nurse at bedside. He is eating breakfast and denies pain. We were consulted so patient has adequate pain control while here in the hospital. PAST MEDICAL HISTORY: Significant for dementia, history of constipation, hypertension, iron deficiency anemia. Patient is on heparin. PAST SURGICAL HISTORY: Denies. FAMILY HISTORY: Noncontributory. SOCIAL HISTORY: Has history of smoking. Denies history of drug abuse. Denies history of alcohol abuse. ALLERGIES: No known allergies. MEDICATIONS: Colace, Norvasc, ferrous sulfate, heparin, hydralazine. Allergies: Coded Allergies: No Known Allergies (Unverified , 06/21/20) Medication History Scheduled Amlodipine Besylate* (Amlodipine Besylate*), 10 MG ORAL DAILY, (Reported) Docusate Sodium* (Colace*), 100 MG ORAL DAILY, (Reported) Ferrous Sulfate* (Ferrous Sulfate*), 325 MG ORAL DAILY, (Reported) Heparin Sod (Porcine) (Heparin Sodium*), 5,000 UNITS SUBQ EVERY 12 HOURS, ( Reported) Hydralazine Hcl* (Hydralazine Hcl*), 25 MG ORAL EVERY 8 HOURS, (Reported) Scheduled PRN Albuterol Sulfate* (Albuterol Sulfate Hhn*), 3 ML INH Q4H PRN for Shortness of Breath, (Reported) Patient History Healthcare decision maker Resuscitation status Advanced Directive on File Review of Systems ROS Narrative REVIEW OF SYSTEMS: HEENT: Denies headaches. RESPIRATORY: Denies shortness of breath. Denies cough. CARDIOVASCULAR: Denies chest pain. GASTROINTESTINAL: Denies nausea, vomiting, or diarrhea. EXTREMITIES: Denies pain. CENTRAL NERVOUS SYSTEM: Denies change in speech pattern. Physical Exam Physical Exam Narrative HEENT: PERRLA. NECK: Supple. No lymphadenopathy. CHEST: Clear to auscultation. CARDIOVASCULAR: Regular rate and rhythm. No murmurs or extra sounds. GASTROINTESTINAL: Soft, nontender, nondistended. No organomegaly. EXTREMITIES: No edema. Moves all four extremities. Sensory intact to light touch. Reflexes on both sides. Dorsalis pedis pulses present. NEUROLOGIC: Has generalized weakness. Last 24 Hour Vital Signs Date Time Temp Pulse Resp B/P (MAP) Pulse Ox O2 Delivery O2 Flow Rate FiO2 06/25/20 09:18 67 109/44 06/25/20 08:00 72 06/25/20 08:00 98.0 67 15 109/44 (65) 100 06/25/20 07:00 63 15 92/56 (68) 100 06/25/20 06:30 68 15 120/39 (66) 100 06/25/20 06:00 70 14 101/53 (69) 100 06/25/20 05:30 68 13 88/43 (58) 100 06/25/20 05:00 72 16 95/40 (58) 100 06/25/20 04:30 69 14 114/38 (63) 100 06/25/20 04:00 98.8 68 16 106/44 (64) 100 06/25/20 04:00 85 06/25/20 03:30 66 20 119/31 (60) 98 06/25/20 03:00 63 15 86/40 (55) 100 06/25/20 02:30 64 15 87/40 (56) 100 06/25/20 02:00 65 16 130/76 (94) 100 06/25/20 01:30 66 15 96/49 (65) 100 06/25/20 01:30 66 15 96/49 (65) 100 06/25/20 01:13 65 16 92/47 (62) 99 06/25/20 01:00 67 16 88/35 (52) 100 06/25/20 01:00 67 16 92/35 (54) 100 06/25/20 00:30 75 18 102/54 (70) 100 06/25/20 00:30 75 18 102/54 (70) 100 06/25/20 00:00 Nasal Cannula 2.0 06/25/20 00:00 98.8 80 20 118/54 (75) 96 06/25/20 00:00 80 06/25/20 00:00 80 20 118/54 (75) 96 06/25/20 00:00 80 20 118/54 (75) 96 06/24/20 23:00 72 18 91/45 (60) 98 06/24/20 22:30 60 15 113/81 (92) 97 06/24/20 22:00 62 15 93/46 (62) 98 06/24/20 21:30 80 19 133/51 (78) 99 06/24/20 21:00 72 15 101/46 (64) 100 06/24/20 20:56 77 111/43 06/24/20 20:30 80 21 111/43 (65) 99 06/24/20 20:00 98.5 79 19 118/52 (74) 99 06/24/20 20:00 Nasal Cannula 2.0 06/24/20 20:00 75 06/24/20 19:00 61 16 90/58 (69) 100 06/24/20 18:30 63 15 97/50 (66) 99 06/24/20 18:00 64 15 112/66 (81) 100 06/24/20 17:30 76 17 90/45 (60) 99 06/24/20 17:00 59 14 77/47 (57) 100 06/24/20 16:30 59 15 120/52 (74) 06/24/20 16:00 99.8 90 19 119/88 (98) 06/24/20 16:00 Nasal Cannula 2.0 06/24/20 15:30 92 20 136/74 (94) 88 06/24/20 15:14 63 06/24/20 15:00 63 15 90/43 (59) 98 06/24/20 14:30 98 20 123/85 (98) 96 06/24/20 14:00 81 20 92/55 (67) 100 06/24/20 13:00 92 22 118/71 (87) 98 06/24/20 12:11 71 06/24/20 12:00 100.0 62 14 107/50 (69) 98 06/24/20 12:00 Nasal Cannula 2.0 Intake and Output 06/24/20 06/25/20 19:00 07:00 Intake Total 558.032 ml 1053.638 ml Output Total 410 ml 985 ml Balance 148.032 ml 68.638 ml Intake Oral 0 ml IV Total 558.032 ml 1053.638 ml Output Urine Total 410 ml 985 ml # Voids 1 # Bowel Movements 2 3 Laboratory Tests Test 06/24/20 10:05 06/24/20 12:55 06/24/20 15:10 06/24/20 21:05 Troponin I 17.255 ng/mL (0.000-0.056) 11.971 ng/mL (0.000-0.056) Prothrombin Time 12.2 SEC (9.30-11.50) H Prothromb Time International Ratio 1.1 (0.9-1.1) Activated Partial Thromboplast Time 33 SEC (23-33) 39 SEC (23-33) H Urine Color Yellow Urine Appearance Turbid Urine pH 5.0 (4.5-8.0) Urine Specific [place] 1.015 (1.005-1.035) Urine Protein 1+ (NEGATIVE) H Urine Glucose (UA) Negative (NEGATIVE) Urine Ketones 1+ (NEGATIVE) H Urine Blood 5+ (NEGATIVE) H Urine Nitrite Positive (NEGATIVE) H Urine Bilirubin Negative (NEGATIVE) Urine Urobilinogen Normal MG/DL (0.0-1.0) Urine Leukocyte Esterase 3+ (NEGATIVE) H Urine RBC Tntc /HPF (0 - 0) H Urine WBC Tntc /HPF (0 - 0) H Urine Squamous Epithelial Cells Occasional /LPF Urine Bacteria Many /HPF (NONE) H Test 06/25/20 04:26 Activated Partial Thromboplast Time 57 SEC (23-33) H Sodium Level 140 MMOL/L (136-145) Potassium Level 3.7 MMOL/L (3.5-5.1) Chloride Level 107 MMOL/L (98-107) Carbon Dioxide Level 22 MMOL/L (21-32) Anion Gap 12 mmol/L (5-15) Blood Urea Nitrogen 44 mg/dL (7-18) H Creatinine 1.8 MG/DL (0.55-1.30) H Estimat Glomerular Filtration Rate 43.6 mL/min (>60) Glucose Level 118 MG/DL (74-106) H Calcium Level 8.1 MG/DL (8.5-10.1) L Phosphorus Level 3.2 MG/DL (2.5-4.9) Magnesium Level 2.0 MG/DL (1.8-2.4) Total Bilirubin 0.5 MG/DL (0.2-1.0) Aspartate Amino Transf (AST/SGOT) 78 U/L (15-37) H Alanine Aminotransferase (ALT/SGPT) 39 U/L (12-78) Alkaline Phosphatase 61 U/L (46-116) Troponin I 9.716 ng/mL (0.000-0.056) Total Protein 5.8 G/DL (6.4-8.2) L Albumin 2.4 G/DL (3.4-5.0) L Globulin 3.4 g/dL Albumin/Globulin Ratio 0.7 (1.0-2.7) L Microbiology Date/Time Source Procedure Growth Status 06/24/20 15:10 Urine,Clean Catch Urine Culture - Preliminary Gram Negative Bacillus 1 Resulted Height (Feet): 5 Height (Inches): 6.00 Weight (Pounds): 120 Medications Current Medications Medications (Trade) Dose Ordered Sig/Vanessa Route PRN Reason Start Time Stop Time Status Last Admin Dose Admin Acetaminophen (Tylenol) 500 mg Q4H PRN ORAL Mild Pain (Pain Scale 1-3) 06/24/20 14:15 07/22/20 10:09 Acetaminophen (Tylenol) 650 mg Q4H PRN ORAL Fever over 100.4 06/24/20 14:00 07/24/20 09:59 Aspirin (ASA) 81 mg DAILY ORAL 06/25/20 09:00 08/09/20 08:59 06/25/20 09:18 Atorvastatin Calcium (Lipitor) 80 mg BEDTIME ORAL 06/24/20 21:00 09/22/20 20:59 06/24/20 20:55 Ceftriaxone Sodium 1 gm/ Dextrose 55 ml @ 110 mls/hr Q24H IVPB 06/24/20 13:00 07/01/20 12:59 06/24/20 13:56 Dextrose/Sodium Chloride 1,000 ml @ 75 mls/hr [id number] IV 06/24/20 12:00 07/22/20 00:00 06/25/20 02:18 Docusate Sodium (Colace) 100 mg BID ORAL 06/24/20 18:00 07/22/20 08:59 06/25/20 09:19 Haloperidol Lactate (Haldol) 5 mg Q6H PRN IM Agitation 06/24/20 16:15 08/07/20 10:14 Heparin Sodium/ Dextrose 500 ml @ 18.942 mls/ hr ADJUST PER PROTOCOL IV 06/25/20 06:00 07/24/20 13:14 06/25/20 06:08 Hydralazine HCl (Apresoline) 25 mg Q4H PRN ORAL bp over 160 syst 06/24/20 14:15 09/19/20 10:09 Metoprolol Tartrate (Lopressor) 12.5 mg Q12HR ORAL 06/24/20 21:00 09/22/20 20:59 06/25/20 09:18 Pantoprazole (Protonix) 40 mg DAILY ORAL 06/24/20 20:30 07/24/20 20:29 06/25/20 09:18 Tamsulosin HCl (Flomax) 0.4 mg EVERY 12 HOURS ORAL 06/24/20 21:00 07/23/20 12:44 06/25/20 09:18 Assessment/Plan Assessment/Plan: (1) Degenerative Joint disease (2) NSTEMI Patient to be continued on Tylenol D/w Dr. Smalls and he concurred. Thank you for consult. Vishal Brito Jun 25, 2020 10:02
--- NOTE | 2020-06-25 10:05 | NUR ---
Social Work This Sw received a consult to assist with POA documents. This Sw spoke with Aure aprkAdy Alfaro @ [phone], who explains patient lives in his own home in [place] and would like SNF placement closer to this (niece lives in [facility]). The intermediate plan is for patient to return to his home, if able (according to vivian). Patients niece is paying additional expenses to maintain his home. Vivian explains patient does not have an Advance Directive, was a "recluse," does not have any other family assisting him with decision making. This SW explained to nifaisal regarding SNF will need to accept HMO/insurance for placement (patient was at [facility] prior; this SW made attempts to contact [facility] x3, phone keeps ringing, no answer at this time). Vivian explains she is requesting DNR. Nursing aware/patient has DNR status already in place, currently in the ICU.
--- NOTE | 2020-06-25 10:20 | NUR ---
NURSE NOTES: Dr Love at bedside updated re pt's status re isoltion,ordered to discontinue Covid isolation.Informed also pt needing another IV access for antibiotic,since pt has on ly one IV access.Ordered for PICC line insertion and signed the consent since pt has no immediate relative.
--- NOTE | 2020-06-25 10:28 | Infectious Diseases Prog Note ---
Assessment/Plan Assessment/Plan IMPRESSION: Fever resolved, UTI Pneumonia/ pulmonary edema, Acute renal failure, Chronic kidney disease, Acute [place], Anemia. History of recent COVID19 RECOMMENDATION: We will follow up the cultures. Continue ceftriaxone. Needs IV access, PICC line orderd Subjective ROS Limited/Unobtainable: Yes Constitutional: Denies: fever Neurologic: Reports: confusion, other - on restraint Allergies: Coded Allergies: No Known Allergies (Unverified , 06/21/20) Objective Last 24 Hour Vital Signs Date Time Temp Pulse Resp B/P (MAP) Pulse Ox O2 Delivery O2 Flow Rate FiO2 06/25/20 09:18 67 109/44 06/25/20 08:00 72 06/25/20 08:00 98.0 67 15 109/44 (65) 100 06/25/20 07:00 63 15 92/56 (68) 100 06/25/20 06:30 68 15 120/39 (66) 100 06/25/20 06:00 70 14 101/53 (69) 100 06/25/20 05:30 68 13 88/43 (58) 100 06/25/20 05:00 72 16 95/40 (58) 100 06/25/20 04:30 69 14 114/38 (63) 100 06/25/20 04:00 98.8 68 16 106/44 (64) 100 06/25/20 04:00 85 06/25/20 03:30 66 20 119/31 (60) 98 06/25/20 03:00 63 15 86/40 (55) 100 06/25/20 02:30 64 15 87/40 (56) 100 06/25/20 02:00 65 16 130/76 (94) 100 06/25/20 01:30 66 15 96/49 (65) 100 06/25/20 01:30 66 15 96/49 (65) 100 06/25/20 01:13 65 16 92/47 (62) 99 06/25/20 01:00 67 16 88/35 (52) 100 06/25/20 01:00 67 16 92/35 (54) 100 06/25/20 00:30 75 18 102/54 (70) 100 06/25/20 00:30 75 18 102/54 (70) 100 06/25/20 00:00 Nasal Cannula 2.0 06/25/20 00:00 98.8 80 20 118/54 (75) 96 06/25/20 00:00 80 06/25/20 00:00 80 20 118/54 (75) 96 06/25/20 00:00 80 20 118/54 (75) 96 06/24/20 23:00 72 18 91/45 (60) 98 06/24/20 22:30 60 15 113/81 (92) 97 06/24/20 22:00 62 15 93/46 (62) 98 06/24/20 21:30 80 19 133/51 (78) 99 06/24/20 21:00 72 15 101/46 (64) 100 06/24/20 20:56 77 111/43 06/24/20 20:30 80 21 111/43 (65) 99 06/24/20 20:00 98.5 79 19 118/52 (74) 99 06/24/20 20:00 Nasal Cannula 2.0 06/24/20 20:00 75 06/24/20 19:00 61 16 90/58 (69) 100 06/24/20 18:30 63 15 97/50 (66) 99 06/24/20 18:00 64 15 112/66 (81) 100 06/24/20 17:30 76 17 90/45 (60) 99 06/24/20 17:00 59 14 77/47 (57) 100 06/24/20 16:30 59 15 120/52 (74) 06/24/20 16:00 99.8 90 19 119/88 (98) 06/24/20 16:00 Nasal Cannula 2.0 06/24/20 15:30 92 20 136/74 (94) 88 06/24/20 15:14 63 06/24/20 15:00 63 15 90/43 (59) 98 06/24/20 14:30 98 20 123/85 (98) 96 06/24/20 14:00 81 20 92/55 (67) 100 06/24/20 13:00 92 22 118/71 (87) 98 06/24/20 12:11 71 06/24/20 12:00 100.0 62 14 107/50 (69) 98 06/24/20 12:00 Nasal Cannula 2.0 Height (Feet): 5 Height (Inches): 6.00 Weight (Pounds): 120 HEENT: mucous membranes moist Respiratory/Chest: crackles/rales, other - few rhonchi, getting oxygen by nasal cannula Cardiovascular: normal rate Abdomen: soft, non tender Extremities: no edema Neurologic/Psychiatric: alert, responsive Microbiology Date/Time Source Procedure Growth Status 06/24/20 15:10 Urine,Clean Catch Urine Culture - Preliminary Gram Negative Bacillus 1 Resulted Laboratory Tests Test 06/24/20 12:55 06/24/20 15:10 06/24/20 21:05 06/25/20 04:26 Prothrombin Time 12.2 SEC (9.30-11.50) H Prothromb Time International Ratio 1.1 (0.9-1.1) Activated Partial Thromboplast Time 33 SEC (23-33) 39 SEC (23-33) H 57 SEC (23-33) H Urine Color Yellow Urine Appearance Turbid Urine pH 5.0 (4.5-8.0) Urine Specific [place] 1.015 (1.005-1.035) Urine Protein 1+ (NEGATIVE) H Urine Glucose (UA) Negative (NEGATIVE) Urine Ketones 1+ (NEGATIVE) H Urine Blood 5+ (NEGATIVE) H Urine Nitrite Positive (NEGATIVE) H Urine Bilirubin Negative (NEGATIVE) Urine Urobilinogen Normal MG/DL (0.0-1.0) Urine Leukocyte Esterase 3+ (NEGATIVE) H Urine RBC Tntc /HPF (0 - 0) H Urine WBC Tntc /HPF (0 - 0) H Urine Squamous Epithelial Cells Occasional /LPF Urine Bacteria Many /HPF (NONE) H Troponin I 11.971 ng/mL (0.000-0.056) 9.716 ng/mL (0.000-0.056) Sodium Level 140 MMOL/L (136-145) Potassium Level 3.7 MMOL/L (3.5-5.1) Chloride Level 107 MMOL/L (98-107) Carbon Dioxide Level 22 MMOL/L (21-32) Anion Gap 12 mmol/L (5-15) Blood Urea Nitrogen 44 mg/dL (7-18) H Creatinine 1.8 MG/DL (0.55-1.30) H Estimat Glomerular Filtration Rate 43.6 mL/min (>60) Glucose Level 118 MG/DL (74-106) H Calcium Level 8.1 MG/DL (8.5-10.1) L Phosphorus Level 3.2 MG/DL (2.5-4.9) Magnesium Level 2.0 MG/DL (1.8-2.4) Total Bilirubin 0.5 MG/DL (0.2-1.0) Aspartate Amino Transf (AST/SGOT) 78 U/L (15-37) H Alanine Aminotransferase (ALT/SGPT) 39 U/L (12-78) Alkaline Phosphatase 61 U/L (46-116) Total Protein 5.8 G/DL (6.4-8.2) L Albumin 2.4 G/DL (3.4-5.0) L Globulin 3.4 g/dL Albumin/Globulin Ratio 0.7 (1.0-2.7) L Current Medications Medications (Trade) Dose Ordered Sig/Vanessa Route PRN Reason Start Time Stop Time Status Last Admin Dose Admin Acetaminophen (Tylenol) 500 mg Q4H PRN ORAL Mild Pain (Pain Scale 1-3) 06/24/20 14:15 07/22/20 10:09 Acetaminophen (Tylenol) 650 mg Q4H PRN ORAL Fever over 100.4 06/24/20 14:00 07/24/20 09:59 Aspirin (ASA) 81 mg DAILY ORAL 06/25/20 09:00 08/09/20 08:59 06/25/20 09:18 Atorvastatin Calcium (Lipitor) 80 mg BEDTIME ORAL 06/24/20 21:00 09/22/20 20:59 06/24/20 20:55 Ceftriaxone Sodium 1 gm/ Dextrose 55 ml @ 110 mls/hr Q24H IVPB 06/24/20 13:00 07/01/20 12:59 06/24/20 13:56 Dextrose/Sodium Chloride 1,000 ml @ 75 mls/hr [id number] IV 06/24/20 12:00 07/22/20 00:00 06/25/20 02:18 Docusate Sodium (Colace) 100 mg BID ORAL 06/24/20 18:00 07/22/20 08:59 06/25/20 09:19 Haloperidol Lactate (Haldol) 5 mg Q6H PRN IM Agitation 06/24/20 16:15 08/07/20 10:14 Heparin Sodium/ Dextrose 500 ml @ 18.942 mls/ hr ADJUST PER PROTOCOL IV 06/25/20 06:00 07/24/20 13:14 06/25/20 06:08 Hydralazine HCl (Apresoline) 25 mg Q4H PRN ORAL bp over 160 syst 06/24/20 14:15 09/19/20 10:09 Metoprolol Tartrate (Lopressor) 12.5 mg Q12HR ORAL 06/24/20 21:00 09/22/20 20:59 06/25/20 09:18 Pantoprazole (Protonix) 40 mg DAILY ORAL 06/24/20 20:30 07/24/20 20:29 06/25/20 09:18 Tamsulosin HCl (Flomax) 0.4 mg EVERY 12 HOURS ORAL 06/24/20 21:00 07/23/20 12:44 06/25/20 09:18 Shravan Rodriguez MD Jun 25, 2020 10:28
[2020-06-25] MEDS ORDERED: Heparin1,000 units/500ml Premix(Conc:2 units/ml) IV ONE (10:30)
[2020-06-25] MEDS ORDERED: Lidocaine 1% Plain 30 ml INJ SCH (10:30)
[2020-06-25] MEDS ORDERED: Heparin1,000 units/500ml Premix(Conc:2 units/ml) IV SCH (14:00)
[2020-06-25] MEDS: Lidocaine 1% Plain 30 ml INJ SCH ×2 (14:00→14:59)
--- NOTE | 2020-06-25 14:00 | NUR ---
NURSE NOTES: PICC line insertion done at bedside to B[place]LY ,procedure tolerated well.will wait for CXRay for confirmation.
--- NOTE | 2020-06-25 14:46 | NUR ---
RADIOLOGY NOTE: RIGHT UPPER EXTREMITY PICC LINE PLACEMENT BY DR. SHAHRAM FOREMAN AT 1420 HRS. FA
--- NOTE | 2020-06-25 15:23 | Brief Operative Note ---
Immediate Post Operative Note Operative Note Pre-op Diagnosis: needs salvage determiner IV access Procedure: PICC Post-op Diagnosis: same as pre-op Surgeon: Margarito Sy Specimen: none Complications: none Fluids: none Implant(s) used?: No Sylvester Sy MD Jun 25, 2020 15:23
--- NOTE | 2020-06-25 15:30 | NUR ---
NURSE HAND-OFF REPORT: Important Events on Shift:PICC line insertion to B[place] Patient Status: stable Diet: Regular Pending Orders: N/A Pending Results/Labs:N/A Pending MD notification:N/A Latest Vital Signs: Temperature 98.9 , Pulse 67 , B/P 100 /66 , Respiratory Rate 14 , O2 SAT 100 , Nasal Cannula, O2 Flow Rate 2.0 . Vital Sign Comment: N/A EKG Rhythm: Sinus Rhythm Rhythm change?: N MD Notified?: N MD Response: Latest Anglin Fall Score: 85 Fall Risk: High Risk Safety Measures: Call light Within Reach, Bed Alarm Zone 1, Side Rails Side Rails x2, Bed position Low and Locked. Fall Precautions: Yellow Socks Yellow Gown Door Sign Patient Fall Education Report given to Alexey Cox RN..
--- NOTE | 2020-06-25 15:32 | Diagnostic Imaging Report ---
Indications: Needs long-term IV access Technique: Procedure performed at bedside. Procedural timeout performed. Ultrasound confirms patent compressible right basilic vein. Total sterile technique, including sterile probe cover and sterile gel, sterile gloves, hand hygiene, hat, mask,, sterile gown, large sterile drape, and preparation with 2% chlorhexidine utilized. Local anesthesia with 1% lidocaine. Under real-time ultrasound guidance, puncture basilic vein using 21-gauge needle, passage 0.018 guidewire, exchange for 4 Belgian peel-away sheath. 4 Belgian Bard dual-lumen power PICC cut to 30 cm. It was inserted through the peel-away sheath. Peel-away sheath and guidewire removed. Catheter fixed to the skin. Both catheter ports aspirated and flushed. Patient tolerated procedure well, without immediate complication. Followup chest x-ray obtained, documents catheter tip position at the cavoatrial junction Impression: Successful bedside placement of right arm PICC under sonographic guidance, as described above.
[2020-06-25] MEDS: cefTRIAXone 1 GM in D5W 55 ML IVPB SCH (15:51)
--- NOTE | 2020-06-25 16:28 | Cardiac Electrophysiology PN ---
Assessment/Plan Assessment/Plan 1. Acute non-ST elevation myocardial infarction with troponin of 17. Troponin now down to 5 and echo EF 40% DNR. Partially may be due to renal failure or due to COVID myocarditis in view of patient's recent COVID. Continue aspirin 81 mg daily, metoprolol 12.5 b.i.d., and Lipitor 80 2. History of recent COVID. 3. Dementia. 4. Renal failure and hyperkalemia. 5. Contusion. 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 Confused in restraints. In SR Objective Last 24 Hour Vital Signs Date Time Temp Pulse Resp B/P (MAP) Pulse Ox O2 Delivery O2 Flow Rate FiO2 06/25/20 15:00 67 13 94/44 (61) 100 06/25/20 14:00 68 15 92/53 (66) 100 06/25/20 13:00 72 17 118/84 (95) 99 06/25/20 12:01 Nasal Cannula 2.0 06/25/20 12:00 75 16 125/62 (83) 99 06/25/20 12:00 78 06/25/20 11:00 69 15 111/73 (86) 100 06/25/20 10:00 67 15 97/39 (58) 100 06/25/20 09:18 67 109/44 06/25/20 09:00 64 15 102/46 (64) 100 06/25/20 08:00 72 06/25/20 08:00 98.0 67 15 109/44 (65) 100 06/25/20 08:00 Nasal Cannula 2.0 06/25/20 07:00 63 15 92/56 (68) 100 06/25/20 06:30 68 15 120/39 (66) 100 06/25/20 06:00 70 14 101/53 (69) 100 06/25/20 05:30 68 13 88/43 (58) 100 06/25/20 05:00 72 16 95/40 (58) 100 06/25/20 04:30 69 14 114/38 (63) 100 06/25/20 04:00 98.8 68 16 106/44 (64) 100 06/25/20 04:00 85 06/25/20 03:30 66 20 119/31 (60) 98 06/25/20 03:00 63 15 86/40 (55) 100 06/25/20 02:30 64 15 87/40 (56) 100 06/25/20 02:00 65 16 130/76 (94) 100 06/25/20 01:30 66 15 96/49 (65) 100 06/25/20 01:30 66 15 96/49 (65) 100 06/25/20 01:13 65 16 92/47 (62) 99 06/25/20 01:00 67 16 88/35 (52) 100 06/25/20 01:00 67 16 92/35 (54) 100 06/25/20 00:30 75 18 102/54 (70) 100 06/25/20 00:30 75 18 102/54 (70) 100 06/25/20 00:00 Nasal Cannula 2.0 06/25/20 00:00 98.8 80 20 118/54 (75) 96 06/25/20 00:00 80 06/25/20 00:00 80 20 118/54 (75) 96 06/25/20 00:00 80 20 118/54 (75) 96 06/24/20 23:00 72 18 91/45 (60) 98 06/24/20 22:30 60 15 113/81 (92) 97 06/24/20 22:00 62 15 93/46 (62) 98 06/24/20 21:30 80 19 133/51 (78) 99 06/24/20 21:00 72 15 101/46 (64) 100 06/24/20 20:56 77 111/43 06/24/20 20:30 80 21 111/43 (65) 99 06/24/20 20:00 98.5 79 19 118/52 (74) 99 06/24/20 20:00 Nasal Cannula 2.0 06/24/20 20:00 75 06/24/20 19:00 61 16 90/58 (69) 100 06/24/20 18:30 63 15 97/50 (66) 99 06/24/20 18:00 64 15 112/66 (81) 100 06/24/20 17:30 76 17 90/45 (60) 99 06/24/20 17:00 59 14 77/47 (57) 100 06/24/20 16:30 59 15 120/52 (74) Intake and Output 06/24/20 06/25/20 19:00 07:00 Intake Total 558.032 ml 1053.638 ml Output Total 410 ml 985 ml Balance 148.032 ml 68.638 ml Intake Oral 0 ml IV Total 558.032 ml 1053.638 ml Output Urine Total 410 ml 985 ml # Voids 1 # Bowel Movements 2 3 Laboratory Tests Test 06/24/20 21:05 06/25/20 04:26 06/25/20 13:00 Activated Partial Thromboplast Time 39 SEC (23-33) H 57 SEC (23-33) H 54 SEC (23-33) H Troponin I 11.971 ng/mL (0.000-0.056) 9.716 ng/mL (0.000-0.056) 5.305 ng/mL (0.000-0.056) Sodium Level 140 MMOL/L (136-145) Potassium Level 3.7 MMOL/L (3.5-5.1) Chloride Level 107 MMOL/L (98-107) Carbon Dioxide Level 22 MMOL/L (21-32) Anion Gap 12 mmol/L (5-15) Blood Urea Nitrogen 44 mg/dL (7-18) H Creatinine 1.8 MG/DL (0.55-1.30) H Estimat Glomerular Filtration Rate 43.6 mL/min (>60) Glucose Level 118 MG/DL (74-106) H Calcium Level 8.1 MG/DL (8.5-10.1) L Phosphorus Level 3.2 MG/DL (2.5-4.9) Magnesium Level 2.0 MG/DL (1.8-2.4) Total Bilirubin 0.5 MG/DL (0.2-1.0) Aspartate Amino Transf (AST/SGOT) 78 U/L (15-37) H Alanine Aminotransferase (ALT/SGPT) 39 U/L (12-78) Alkaline Phosphatase 61 U/L (46-116) Total Protein 5.8 G/DL (6.4-8.2) L Albumin 2.4 G/DL (3.4-5.0) L Globulin 3.4 g/dL Albumin/Globulin Ratio 0.7 (1.0-2.7) L Microbiology Date/Time Source Procedure Growth Status 06/24/20 15:10 Urine,Clean Catch Urine Culture - Preliminary Gram Negative Bacillus 1 Resulted Objective HEAD AND NECK: No JVD. LUNGS: Coarse rhonchi. CARDIOVASCULAR: Regular S1 and S2 with no gallop. ABDOMEN: Soft. EXTREMITIES: No pitting edema. Mor Rm MD Jun 25, 2020 16:28
--- NOTE | 2020-06-25 17:10 | NUR ---
CASE MANAGEMENT:REVIEW 06/25/20 SI:NSTEMI . TOX METABOLIC ENCEPHALOPATHY. AC/CHR RENAL FAILURE. 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
--- NOTE | 2020-06-25 17:19 | NUR ---
*-* INSURANCE *-* UPDATED CLINICALS AND REVIEWS HAVE BEEN FAXED TO: ALL AVAILABLE CLINICALS AND REVIEWS HAVE BEEN FAXED TO [employer] AUTH#[id number] FAX CLINICALS TO [employer] P:[phone] F:[phone]
--- NOTE | 2020-06-25 18:14 | Pulmonology Progress Note ---
Subjective ROS Limited/Unobtainable: Yes Interval Events: None new Constitutional: Reports: no symptoms; Denies: fever HEENT: Repors: no symptoms Respiratory: Reports: no symptoms Cardiovascular: Reports: no symptoms Gastrointestinal/Abdominal: Reports: no symptoms Allergies: Coded Allergies: No Known Allergies (Unverified , 06/21/20) Objective Last 24 Hour Vital Signs Date Time Temp Pulse Resp B/P (MAP) Pulse Ox O2 Delivery O2 Flow Rate FiO2 06/25/20 17:00 70 13 101/50 (67) 100 06/25/20 16:00 82 06/25/20 16:00 98.9 65 15 113/63 (80) 100 06/25/20 16:00 Nasal Cannula 2.0 06/25/20 15:00 67 13 94/44 (61) 100 06/25/20 14:00 68 15 92/53 (66) 100 06/25/20 13:00 72 17 118/84 (95) 99 06/25/20 12:01 Nasal Cannula 2.0 06/25/20 12:00 75 16 125/62 (83) 99 06/25/20 12:00 78 06/25/20 11:00 69 15 111/73 (86) 100 06/25/20 10:00 67 15 97/39 (58) 100 06/25/20 09:18 67 109/44 06/25/20 09:00 64 15 102/46 (64) 100 06/25/20 08:00 72 06/25/20 08:00 98.0 67 15 109/44 (65) 100 06/25/20 08:00 Nasal Cannula 2.0 06/25/20 07:00 63 15 92/56 (68) 100 06/25/20 06:30 68 15 120/39 (66) 100 06/25/20 06:00 70 14 101/53 (69) 100 06/25/20 05:30 68 13 88/43 (58) 100 06/25/20 05:00 72 16 95/40 (58) 100 06/25/20 04:30 69 14 114/38 (63) 100 06/25/20 04:00 98.8 68 16 106/44 (64) 100 06/25/20 04:00 85 06/25/20 03:30 66 20 119/31 (60) 98 06/25/20 03:00 63 15 86/40 (55) 100 06/25/20 02:30 64 15 87/40 (56) 100 06/25/20 02:00 65 16 130/76 (94) 100 06/25/20 01:30 66 15 96/49 (65) 100 06/25/20 01:30 66 15 96/49 (65) 100 06/25/20 01:13 65 16 92/47 (62) 99 06/25/20 01:00 67 16 88/35 (52) 100 06/25/20 01:00 67 16 92/35 (54) 100 06/25/20 00:30 75 18 102/54 (70) 100 06/25/20 00:30 75 18 102/54 (70) 100 06/25/20 00:00 Nasal Cannula 2.0 06/25/20 00:00 98.8 80 20 118/54 (75) 96 06/25/20 00:00 80 06/25/20 00:00 80 20 118/54 (75) 96 06/25/20 00:00 80 20 118/54 (75) 96 06/24/20 23:00 72 18 91/45 (60) 98 06/24/20 22:30 60 15 113/81 (92) 97 06/24/20 22:00 62 15 93/46 (62) 98 06/24/20 21:30 80 19 133/51 (78) 99 06/24/20 21:00 72 15 101/46 (64) 100 06/24/20 20:56 77 111/43 06/24/20 20:30 80 21 111/43 (65) 99 06/24/20 20:00 98.5 79 19 118/52 (74) 99 06/24/20 20:00 Nasal Cannula 2.0 06/24/20 20:00 75 06/24/20 19:00 61 16 90/58 (69) 100 06/24/20 18:30 63 15 97/50 (66) 99 Intake and Output 06/24/20 06/25/20 19:00 07:00 Intake Total 558.032 ml 1053.638 ml Output Total 410 ml 985 ml Balance 148.032 ml 68.638 ml Intake Oral 0 ml IV Total 558.032 ml 1053.638 ml Output Urine Total 410 ml 985 ml # Voids 1 # Bowel Movements 2 3 General Appearance: no acute distress HEENT: normocephalic Respiratory: chest wall non-tender, lungs clear Cardiovascular: normal peripheral pulses Abdomen: normal bowel sounds Microbiology Date/Time Source Procedure Growth Status 06/24/20 15:10 Urine,Clean Catch Urine Culture - Preliminary Gram Negative Bacillus 1 Resulted Laboratory Tests 06/24/20 21:05: Activated Partial Thromboplast Time 39H, Troponin I 11.971H 06/25/20 04:26: Activated Partial Thromboplast Time 57H, Troponin I 9.716H, Sodium Level 140, Potassium Level 3.7, Chloride Level 107, Carbon Dioxide Level 22, Anion Gap 12, Blood Urea Nitrogen 44H, Creatinine 1.8H, Estimat Glomerular Filtration Rate 43.6, Glucose Level 118H, Calcium Level 8.1L, Phosphorus Level 3.2, Magnesium Level 2.0, Total Bilirubin 0.5, Aspartate Amino Transf (AST/SGOT) 78H, Alanine Aminotransferase (ALT/SGPT) 39, Alkaline Phosphatase 61, Total Protein 5.8L, Albumin 2.4L, Globulin 3.4, Albumin/Globulin Ratio 0.7L 06/25/20 13:00: Activated Partial Thromboplast Time 54H, Troponin I 5.305H Current Medications Medications (Trade) Dose Ordered Sig/Vanessa Route PRN Reason Start Time Stop Time Status Last Admin Dose Admin Acetaminophen (Tylenol) 500 mg Q4H PRN ORAL Mild Pain (Pain Scale 1-3) 06/24/20 14:15 07/22/20 10:09 Acetaminophen (Tylenol) 650 mg Q4H PRN ORAL Fever over 100.4 06/24/20 14:00 07/24/20 09:59 Aspirin (ASA) 81 mg DAILY ORAL 06/25/20 09:00 08/09/20 08:59 06/25/20 09:18 Atorvastatin Calcium (Lipitor) 80 mg BEDTIME ORAL 06/24/20 21:00 09/22/20 20:59 06/24/20 20:55 Ceftriaxone Sodium 1 gm/ Dextrose 55 ml @ 110 mls/hr Q24H IVPB 06/24/20 13:00 07/01/20 12:59 06/25/20 15:51 Chlorhexidine Gluconate (Eri-Hex 2%) 1 applic DAILY@2000 TOPIC 06/25/20 20:00 09/23/20 19:59 Dextrose/Sodium Chloride 1,000 ml @ 75 mls/hr [id number] IV 06/24/20 12:00 07/22/20 00:00 06/25/20 15:16 Docusate Sodium (Colace) 100 mg BID ORAL 06/24/20 18:00 07/22/20 08:59 06/25/20 17:16 Haloperidol Lactate (Haldol) 5 mg Q6H PRN IM Agitation 06/24/20 16:15 08/07/20 10:14 Heparin Sodium/ Dextrose 500 ml @ 21.772 mls/ hr ADJUST PER PROTOCOL IV 06/25/20 14:00 07/25/20 13:59 06/25/20 15:09 Hydralazine HCl (Apresoline) 25 mg Q4H PRN ORAL bp over 160 syst 06/24/20 14:15 09/19/20 10:09 Lidocaine HCl (Xylocaine 1% 30ml) 30 ml ONCE INJ 06/25/20 10:30 06/26/20 18:00 Metoprolol Tartrate (Lopressor) 12.5 mg Q12HR ORAL 06/24/20 21:00 09/22/20 20:59 06/25/20 09:18 Pantoprazole (Protonix) 40 mg DAILY ORAL 06/24/20 20:30 07/24/20 20:29 06/25/20 09:18 Tamsulosin HCl (Flomax) 0.4 mg EVERY 12 HOURS ORAL 06/24/20 21:00 07/23/20 12:44 06/25/20 09:18 Assessment/Plan Assessment/Plan IMPRESSION: 1. Status post fall. 2. History of COVID-19 pneumonia. 3. Scalp laceration. 4. Renal insufficiency. 5. Anemia. 6. Hyperkalemia. DISCUSSION: Currently saturating well on low flow O2. I will follow as polysomnographer. Aaron Larry Omar Syed MD Jun 25, 2020 18:14
--- NOTE | 2020-06-25 19:24 | NUR ---
NURSE NOTES: received report from emily murray pt awake and alert but confused at interval jesus manuel soft wrest restraint nan complaint reposition iv infusing well site good dressing dry and intact
[2020-06-25] MEDS ORDERED: Dyna-Hex 2% Top Sol 2oz TOPIC SCH ×3 (20:00)
[2020-06-25] MEDS: Atorvastatin 80mg tab ORAL SCH (21:00)
--- NOTE | 2020-06-25 22:00 | NUR ---
NURSE NOTES: ptt 84 no change hep drip ptt at o400
--- NOTE | 2020-06-25 22:25 | General Progress Note ---
Assessment/Plan Problem List: (1) Hyperkalemia ICD Codes: E87.5 - Hyperkalemia SNOMED: 48795504, 504502343 (2) Renal insufficiency ICD Codes: N28.9 - Disorder of kidney and ureter, unspecified SNOMED: 177253458, 814314340 (3) Hyperkalemia ICD Codes: E87.5 - Hyperkalemia SNOMED: 90574157 (4) Leukocytosis ICD Codes: D72.829 - Elevated white blood cell count, unspecified SNOMED: 225149841, 474887220 (5) MARQUIS (acute kidney injury) ICD Codes: N17.9 - Acute kidney failure, unspecified SNOMED: 6251920, 13334833 (6) Renal failure (ARF), acute on chronic ICD Codes: N17.9 - Acute kidney failure, unspecified; N18.9 - Chronic kidney disease, unspecified SNOMED: 925680406 (7) Toxic metabolic encephalopathy ICD Codes: G92 - Toxic encephalopathy SNOMED: 679887716 Status: progressing Assessment/Plan: s/p fall ID elevated trop .transferred to icu also had fever septic shock trop is improving obs poor historian afebrile Subjective ROS Limited/Unobtainable: Yes Allergies: Coded Allergies: No Known Allergies (Unverified , 06/21/20) Objective Last 24 Hour Vital Signs Date Time Temp Pulse Resp B/P (MAP) Pulse Ox O2 Delivery O2 Flow Rate FiO2 06/25/20 21:00 73 15 111/51 (71) 100 06/25/20 20:29 70 102/52 06/25/20 20:00 Nasal Cannula 2.0 06/25/20 20:00 72 06/25/20 20:00 98.6 68 16 102/52 (69) 99 06/25/20 19:00 73 14 117/57 (77) 100 06/25/20 18:00 67 14 100/66 (77) 100 06/25/20 17:00 70 13 101/50 (67) 100 06/25/20 16:00 82 06/25/20 16:00 98.9 65 15 113/63 (80) 100 06/25/20 16:00 Nasal Cannula 2.0 06/25/20 15:00 67 13 94/44 (61) 100 06/25/20 14:00 68 15 92/53 (66) 100 06/25/20 13:00 72 17 118/84 (95) 99 06/25/20 12:01 Nasal Cannula 2.0 06/25/20 12:00 75 16 125/62 (83) 99 06/25/20 12:00 78 06/25/20 11:00 69 15 111/73 (86) 100 06/25/20 10:00 67 15 97/39 (58) 100 06/25/20 09:18 67 109/44 06/25/20 09:00 64 15 102/46 (64) 100 06/25/20 08:00 72 06/25/20 08:00 98.0 67 15 109/44 (65) 100 06/25/20 08:00 Nasal Cannula 2.0 06/25/20 07:00 63 15 92/56 (68) 100 06/25/20 06:30 68 15 120/39 (66) 100 06/25/20 06:00 70 14 101/53 (69) 100 06/25/20 05:30 68 13 88/43 (58) 100 06/25/20 05:00 72 16 95/40 (58) 100 06/25/20 04:30 69 14 114/38 (63) 100 06/25/20 04:00 98.8 68 16 106/44 (64) 100 06/25/20 04:00 85 06/25/20 03:30 66 20 119/31 (60) 98 06/25/20 03:00 63 15 86/40 (55) 100 06/25/20 02:30 64 15 87/40 (56) 100 06/25/20 02:00 65 16 130/76 (94) 100 06/25/20 01:30 66 15 96/49 (65) 100 06/25/20 01:30 66 15 96/49 (65) 100 06/25/20 01:13 65 16 92/47 (62) 99 06/25/20 01:00 67 16 88/35 (52) 100 06/25/20 01:00 67 16 92/35 (54) 100 06/25/20 00:30 75 18 102/54 (70) 100 06/25/20 00:30 75 18 102/54 (70) 100 06/25/20 00:00 Nasal Cannula 2.0 06/25/20 00:00 98.8 80 20 118/54 (75) 96 06/25/20 00:00 80 06/25/20 00:00 80 20 118/54 (75) 96 06/25/20 00:00 80 20 118/54 (75) 96 06/24/20 23:00 72 18 91/45 (60) 98 06/24/20 22:30 60 15 113/81 (92) 97 Intake and Output 06/24/20 06/25/20 19:00 07:00 Intake Total 558.032 ml 1053.638 ml Output Total 410 ml 985 ml Balance 148.032 ml 68.638 ml Intake Oral 0 ml IV Total 558.032 ml 1053.638 ml Output Urine Total 410 ml 985 ml # Voids 1 # Bowel Movements 2 3 Laboratory Tests 06/25/20 04:26: Activated Partial Thromboplast Time 57H, Sodium Level 140, Potassium Level 3.7, Chloride Level 107, Carbon Dioxide Level 22, Anion Gap 12, Blood Urea Nitrogen 44H, Creatinine 1.8H, Estimat Glomerular Filtration Rate 43.6, Glucose Level 118H, Calcium Level 8.1L, Phosphorus Level 3.2, Magnesium Level 2.0, Total Bilirubin 0.5, Aspartate Amino Transf (AST/SGOT) 78H, Alanine Aminotransferase ( ALT/SGPT) 39, Alkaline Phosphatase 61, Troponin I 9.716H, Total Protein 5.8L, Albumin 2.4L, Globulin 3.4, Albumin/Globulin Ratio 0.7L 06/25/20 13:00: Activated Partial Thromboplast Time 54H, Troponin I 5.305H 06/25/20 21:05: Activated Partial Thromboplast Time 84H Height (Feet): 5 Height (Inches): 6.00 Weight (Pounds): 120 Jefferson Novak MD Jun 25, 2020 22:25
[2020-06-26] MEDS ORDERED: Acetaminophen 500mg (ES) tab ORAL PRN
--- NOTE | 2020-06-26 00:30 | NUR ---
NURSE HAND-OFF REPORT: Latest Vital Signs: Temperature 98.6 , Pulse 77 , B/P 116 /48 , Respiratory Rate 17 , O2 SAT 100 , Nasal Cannula, O2 Flow Rate 2.0 . Vital Sign Comment: EKG Rhythm: Sinus Rhythm Rhythm change?: N Notified?: Regino Novak MD Response: Latest Anglin Fall Score: 85 Fall Risk: High Risk Safety Measures: Call light Within Reach, Bed Alarm Zone 1, Side Rails Side Rails x2, Bed position Low and Locked. Fall Precautions: Yellow Socks Yellow Gown Door Sign Patient Fall Education Report given to aaliyah murray.
[2020-06-26 00:40] VITALS: BP 102/55
--- NOTE | 2020-06-26 01:00 | NUR ---
"NURSE NOTES: Report received from ERON Grimaldo. Upon assessment pt is A/O x 1. Not oriented to purpose, place, or time. Pt observed on 2L N/C with 99% room air. 1.2 | 69 bpm | 99% O2 | 98.9 temp. 5-lead EKG shows SR. Pt observed with BEVERLY double-lumen PICC; patent and intact running D51/2 NS @ 75 and a Heparin drip 21.772. Mcleod draining well to gravity. Ecchymosis observed on left forearm. Taught pt to utilize call light when needing assistance. Offered snacks and water PRN. Made aware of D/C of restraints. Will monitor closely for signs of pulling medical devices. Bed placed in lowest and locked position. Bed alarm on Zone 2 and call light within reach. Will continue monitoring."
--- NOTE | 2020-06-26 01:05 | NUR ---
NURSE NOTES: Pt noted with bilateral arm ecchymosis and right hand skin tear.
[2020-06-26] MEDS: D5 1/2NS 1,000 ML IV SCH ×3 (01:35→20:28)
--- NOTE | 2020-06-26 03:30 | NUR ---
NURSE NOTES: Pt resting in bed comfortably with no s/s of cardiac or respiratory distress. Belongings noted at bedside including but not limited to upper/lower dentures. Will continue to monitor.
[2020-06-26 04:00] VITALS: BP 108/55
--- NOTE | 2020-06-26 04:25 | NUR ---
NURSE NOTES: Pt utilized call light to ask for assistance. Upon entering room pt. removed PICC and left arm IV. When asked why pt responds with, "I pulled all this shit off of me. I dont need it." Pt in stable condition with no distress noted. Will call MD for order of restraints and attempt to reinsert IV.
[2020-06-26] MEDS ORDERED: Heparin 25,000u/D5W 500ml 500 ML IV SCH ×3 (05:45→18:45)
[2020-06-26] MEDS ORDERED: Heparin 5000 units/ml inj IV SCH ×3 (06:00→21:15)
--- NOTE | 2020-06-26 07:30 | NUR ---
NURSE NOTES: Received report from Marcia LITTLEJOHN.
--- NOTE | 2020-06-26 07:30 | NUR ---
NURSE HAND-OFF REPORT: Important Events on Shift: Pt removed PICC line, Bilateral Soft Wrist Restraints Patient Status:Stble, disoriented Diet: Regular 1:1 Pending Orders: Pending Results/Labs: Pending MD notification: Latest Vital Signs: Temperature 98.9 , Pulse 61 , B/P 108 /55 , Respiratory Rate 20 , O2 SAT 99 , Nasal Cannula, O2 Flow Rate 2.0 . Vital Sign Comment: EKG Rhythm: Sinus Rhythm Rhythm change?: N Notified?: Regino Novak MD Response: Latest Anglin Fall Score: 85 Fall Risk: High Risk Safety Measures: Call light Within Reach, Bed Alarm Zone 1, Side Rails Side Rails x2, Bed position Low and Locked. Fall Precautions: Yellow Socks Yellow Gown Door Sign Patient Fall Education Report given to .
[2020-06-26 08:00] VITALS: BP 103/51
--- NOTE | 2020-06-26 08:02 | NUR ---
NURSE NOTES: Pt. in bed, awake, a/o x 1-2, confused. No sign of distress. On O2 at 2LPM via NC. No c/o pain at present. IV at right AC #20g. in placed patent/intact running D5 1/2 NS at 75cc/hr. And IV at left FA #20g. in placed patent/intact running at Heparin drip at 23.95/hr. No bleeding noted. F/C in placed patent/intact draining yellow colored urine. Bilateral soft wrist restrain in placed. (+) CMS. Bed in low position, locked. Bed alarm on. Call light within reach. Will cont. to monitor.
--- NOTE | 2020-06-26 08:09 | NUR ---
RD ASSESSMENT & RECOMMENDATIONS SEE CARE ACTIVITY FOR COMPLETE ASSESSMENT DAILY ESTIMATED NEEDS: Needs based on Cardiac, mild wasting 56.3kg 25-35 kcals/kg 1248-6099 total kcals 1-1.5 g protein/kg 56-85 g total protein 25-30ml/kcal mL/kg 0289-2890 total fluid mLs NUTRITION DIAGNOSIS: Increased kcal and pro needs r/t underweight and wasting status as evidenced by pt is 87% of Gilby Body weight w/ generalized mild wasting, noted fair po intake at this time. CURRENT DIET:Regular soft easy chew PO DIET RECOMMENDATIONS: Maintain liberalized Regular diet / texture as tolerated ADDITIONAL RECOMMENDATIONS: 1) Add ensure enlive BID in b/w meals 2) Maintain calibrated bed scale wts daily 3) Add snacks as tolerated in b.w meals 4) Monitor K, need for dietary restriction
--- NOTE | 2020-06-26 08:35 | General Progress Note ---
Assessment/Plan Assessment/Plan: (1) Degenerative Joint disease (2) NSTEMI Patient to be continued on Tylenol D/w Dr. Smalls and he concurred. Subjective Date patient seen: Jun 26, 2020 Time patient seen: 08:00 - am Allergies: Coded Allergies: No Known Allergies (Unverified , 06/21/20) Subjective REVIEW OF SYSTEMS: HEENT: Denies headaches. RESPIRATORY: Denies shortness of breath. Denies cough. CARDIOVASCULAR: Denies chest pain. GASTROINTESTINAL: Denies nausea, vomiting, or diarrhea. EXTREMITIES: Denies pain. CENTRAL NERVOUS SYSTEM: Denies change in speech pattern. HISTORY OF PRESENT ILLNESS: This is a 84 y/o male seen in the SDU of [facility]. Denies pain and is in bed with no new complaints at this time. Patient is in restraints. Objective Last 24 Hour Vital Signs Date Time Temp Pulse Resp B/P (MAP) Pulse Ox O2 Delivery O2 Flow Rate FiO2 06/26/20 04:00 98.9 61 20 108/55 (72) 99 06/26/20 04:00 Nasal Cannula 2.0 06/26/20 04:00 75 06/26/20 00:40 99.5 70 20 102/55 (71) 99 06/26/20 00:00 Nasal Cannula 2.0 06/26/20 00:00 Nasal Cannula 2.0 06/26/20 00:00 77 06/25/20 23:00 75 17 116/48 (70) 100 06/25/20 22:00 64 11 120/59 (79) 100 06/25/20 21:00 73 15 111/51 (71) 100 06/25/20 20:29 70 102/52 06/25/20 20:00 Nasal Cannula 2.0 06/25/20 20:00 72 06/25/20 20:00 98.6 68 16 102/52 (69) 99 06/25/20 19:00 73 14 117/57 (77) 100 06/25/20 18:00 67 14 100/66 (77) 100 06/25/20 17:00 70 13 101/50 (67) 100 06/25/20 16:00 82 06/25/20 16:00 98.9 65 15 113/63 (80) 100 06/25/20 16:00 Nasal Cannula 2.0 06/25/20 15:00 67 13 94/44 (61) 100 06/25/20 14:00 68 15 92/53 (66) 100 06/25/20 13:00 72 17 118/84 (95) 99 06/25/20 12:01 Nasal Cannula 2.0 06/25/20 12:00 75 16 125/62 (83) 99 06/25/20 12:00 78 06/25/20 11:00 69 15 111/73 (86) 100 06/25/20 10:00 67 15 97/39 (58) 100 06/25/20 09:18 67 109/44 06/25/20 09:00 64 15 102/46 (64) 100 Intake and Output 06/25/20 06/26/20 19:00 07:00 Intake Total 1126.8502 ml 1044.165 ml Output Total 1301 ml 350 ml Balance -174.1498 ml 694.165 ml Intake Oral 720 ml 240 ml IV Total 406.8502 ml 804.165 ml Output Urine Total 1300 ml 350 ml Stool Total 1 ml # Bowel Movements 1 2 Laboratory Tests 06/25/20 13:00: Activated Partial Thromboplast Time 54H, Troponin I 5.305H 06/25/20 21:05: Activated Partial Thromboplast Time 84H 06/26/20 03:55: Activated Partial Thromboplast Time 53H Height (Feet): 5 Height (Inches): 6.00 Weight (Pounds): 122 Objective CHEST: Clear to auscultation. CARDIOVASCULAR: Regular rate and rhythm. GASTROINTESTINAL: Soft, nontender, EXTREMITIES: No edema. NEUROLOGIC: No changes. Vishal Brito Jun 26, 2020 08:35
[2020-06-26] MEDS ORDERED: Tamsulosin 0.4mg cap ORAL SCH (09:00)
[2020-06-26] MEDS ORDERED: Metoprolol Tartrate 12.5mg TAB ORAL SCH (09:00)
[2020-06-26] MEDS ORDERED: Aspirin Baby 81mg ORAL SCH (09:00)
--- NOTE | 2020-06-26 09:03 | Infectious Diseases Prog Note ---
Assessment/Plan Assessment/Plan IMPRESSION: Fever resolved, UTI with E. coli ESBL Pneumonia/ pulmonary edema, Acute renal failure, Chronic kidney disease, Acute UT, Anemia. History of recent COVID19 RECOMMENDATION: We will follow up the cultures. Change ceftriaxone to Meropenem Subjective ROS Limited/Unobtainable: Yes Constitutional: Reports: other - transferred from ICU toDOU Neurologic: Reports: confusion, other - on restraint Allergies: Coded Allergies: No Known Allergies (Unverified , 06/21/20) Objective Last 24 Hour Vital Signs Date Time Temp Pulse Resp B/P (MAP) Pulse Ox O2 Delivery O2 Flow Rate FiO2 06/26/20 04:00 98.9 61 20 108/55 (72) 99 06/26/20 04:00 Nasal Cannula 2.0 06/26/20 04:00 75 06/26/20 00:40 99.5 70 20 102/55 (71) 99 06/26/20 00:00 Nasal Cannula 2.0 06/26/20 00:00 Nasal Cannula 2.0 06/26/20 00:00 77 06/25/20 23:00 75 17 116/48 (70) 100 06/25/20 22:00 64 11 120/59 (79) 100 06/25/20 21:00 73 15 111/51 (71) 100 06/25/20 20:29 70 102/52 06/25/20 20:00 Nasal Cannula 2.0 06/25/20 20:00 72 06/25/20 20:00 98.6 68 16 102/52 (69) 99 06/25/20 19:00 73 14 117/57 (77) 100 06/25/20 18:00 67 14 100/66 (77) 100 06/25/20 17:00 70 13 101/50 (67) 100 06/25/20 16:00 82 06/25/20 16:00 98.9 65 15 113/63 (80) 100 06/25/20 16:00 Nasal Cannula 2.0 06/25/20 15:00 67 13 94/44 (61) 100 06/25/20 14:00 68 15 92/53 (66) 100 06/25/20 13:00 72 17 118/84 (95) 99 06/25/20 12:01 Nasal Cannula 2.0 06/25/20 12:00 75 16 125/62 (83) 99 06/25/20 12:00 78 06/25/20 11:00 69 15 111/73 (86) 100 06/25/20 10:00 67 15 97/39 (58) 100 06/25/20 09:18 67 109/44 Height (Feet): 5 Height (Inches): 6.00 Weight (Pounds): 122 General Appearance: no acute distress HEENT: mucous membranes moist Respiratory/Chest: lungs clear Cardiovascular: normal rate Abdomen: soft, non tender Extremities: no edema Neurologic/Psychiatric: alert, responsive, disoriented Microbiology Date/Time Source Procedure Growth Status 06/24/20 15:10 Urine,Clean Catch Urine Culture - Final Escherichia Coli - Esbl Complete Laboratory Tests Test 06/25/20 13:00 06/25/20 21:05 06/26/20 03:55 Activated Partial Thromboplast Time 54 SEC (23-33) H 84 SEC (23-33) H 53 SEC (23-33) H Troponin I 5.305 ng/mL (0.000-0.056) Current Medications Medications (Trade) Dose Ordered Sig/Vanessa Route PRN Reason Start Time Stop Time Status Last Admin Dose Admin Acetaminophen (Tylenol) 500 mg Q4H PRN ORAL Mild Pain (Pain Scale 1-3) 06/26/20 00:00 07/22/20 00:00 Acetaminophen (Tylenol) 650 mg Q4H PRN ORAL Fever over 100.4 06/26/20 00:00 07/24/20 00:00 Aspirin (ASA) 81 mg DAILY ORAL 06/26/20 09:00 08/09/20 08:59 Atorvastatin Calcium (Lipitor) 80 mg BEDTIME ORAL 06/26/20 21:00 09/22/20 20:59 Ceftriaxone Sodium 1 gm/ Dextrose 55 ml @ 110 mls/hr Q24H IVPB 06/26/20 13:00 07/01/20 12:59 Chlorhexidine Gluconate (Eri-Hex 2%) 1 applic DAILY@2000 TOPIC 06/26/20 20:00 09/23/20 19:59 Dextrose/Sodium Chloride 1,000 ml @ 75 mls/hr [id number] IV 06/25/20 23:45 07/22/20 00:00 06/26/20 01:35 Docusate Sodium (Colace) 100 mg BID ORAL 06/26/20 09:00 07/22/20 08:59 Haloperidol Lactate (Haldol) 5 mg Q6H PRN IM Agitation 06/26/20 00:00 08/07/20 00:00 Heparin Sodium/ Dextrose 500 ml @ 23.95 mls/ hr ADJUST PER PROTOCOL IV 06/26/20 05:45 07/26/20 05:44 06/26/20 06:33 Hydralazine HCl (Apresoline) 25 mg Q4H PRN ORAL bp over 160 syst 06/26/20 00:00 09/19/20 00:00 Metoprolol Tartrate (Lopressor) 12.5 mg Q12HR ORAL 06/26/20 09:00 09/22/20 20:59 Pantoprazole (Protonix) 40 mg DAILY ORAL 06/26/20 09:00 07/24/20 20:29 Tamsulosin HCl (Flomax) 0.4 mg EVERY 12 HOURS ORAL 06/26/20 09:00 07/23/20 12:44 Shravan Rodriguez MD Jun 26, 2020 09:03
[2020-06-26] MEDS: Docusate 100mg cap ORAL SCH ×2 (09:25→18:00)
--- NOTE | 2020-06-26 09:45 | Progress Note ---
DATE: 06/26/2020 SUBJECTIVE: The patient is in ICU on bilateral soft restraints. He is awake; however, unable to be engaged due to confusion and cognitive impairment. Still has episodes of agitation and required IM Haldol. MENTAL STATUS EXAMINATION: Awake, disoriented. Mood is agitated. Affect is flat. Thought process is concrete. Thought content, no suicidal or homicidal ideation. Cognition is impaired. Insight and judgment is impaired. ASSESSMENT: Acute toxic encephalopathy. PLAN: 1. The patient will benefit from bilateral soft restraints. 2. Continue Haldol IM. Chacho Lopez M.D. DR: Elise JOB#: [id number] CC:
--- NOTE | 2020-06-26 10:59 | Pulmonology Progress Note ---
Subjective ROS Limited/Unobtainable: Yes Interval Events: None new Constitutional: Reports: other - transferred from ICU to[facility] HEENT: Repors: no symptoms Respiratory: Reports: no symptoms Cardiovascular: Reports: no symptoms Gastrointestinal/Abdominal: Reports: no symptoms Allergies: Coded Allergies: No Known Allergies (Unverified , 06/21/20) Objective Last 24 Hour Vital Signs Date Time Temp Pulse Resp B/P (MAP) Pulse Ox O2 Delivery O2 Flow Rate FiO2 06/26/20 09:00 78 103/51 06/26/20 08:00 98.9 78 20 103/51 (68) 98 06/26/20 08:00 Nasal Cannula 2.0 06/26/20 07:40 80 06/26/20 04:00 98.9 61 20 108/55 (72) 99 06/26/20 04:00 Nasal Cannula 2.0 06/26/20 04:00 75 06/26/20 00:40 99.5 70 20 102/55 (71) 99 06/26/20 00:00 Nasal Cannula 2.0 06/26/20 00:00 Nasal Cannula 2.0 06/26/20 00:00 77 06/25/20 23:00 75 17 116/48 (70) 100 06/25/20 22:00 64 11 120/59 (79) 100 06/25/20 21:00 73 15 111/51 (71) 100 06/25/20 20:29 70 102/52 06/25/20 20:00 Nasal Cannula 2.0 06/25/20 20:00 72 06/25/20 20:00 98.6 68 16 102/52 (69) 99 06/25/20 19:00 73 14 117/57 (77) 100 06/25/20 18:00 67 14 100/66 (77) 100 06/25/20 17:00 70 13 101/50 (67) 100 06/25/20 16:00 82 06/25/20 16:00 98.9 65 15 113/63 (80) 100 06/25/20 16:00 Nasal Cannula 2.0 06/25/20 15:00 67 13 94/44 (61) 100 06/25/20 14:00 68 15 92/53 (66) 100 06/25/20 13:00 72 17 118/84 (95) 99 06/25/20 12:01 Nasal Cannula 2.0 06/25/20 12:00 75 16 125/62 (83) 99 06/25/20 12:00 78 06/25/20 11:00 69 15 111/73 (86) 100 Intake and Output 06/25/20 06/26/20 19:00 07:00 Intake Total 1126.8502 ml 1044.165 ml Output Total 1301 ml 350 ml Balance -174.1498 ml 694.165 ml Intake Oral 720 ml 240 ml IV Total 406.8502 ml 804.165 ml Output Urine Total 1300 ml 350 ml Stool Total 1 ml # Bowel Movements 1 2 General Appearance: no acute distress HEENT: normocephalic Respiratory: chest wall non-tender, lungs clear Cardiovascular: normal peripheral pulses Abdomen: normal bowel sounds Microbiology Date/Time Source Procedure Growth Status 06/24/20 15:10 Urine,Clean Catch Urine Culture - Final Escherichia Coli - Esbl Complete Laboratory Tests 06/25/20 13:00: Activated Partial Thromboplast Time 54H, Troponin I 5.305H 06/25/20 21:05: Activated Partial Thromboplast Time 84H 06/26/20 03:55: Activated Partial Thromboplast Time 53H Current Medications Medications (Trade) Dose Ordered Sig/Vanessa Route PRN Reason Start Time Stop Time Status Last Admin Dose Admin Acetaminophen (Tylenol) 500 mg Q4H PRN ORAL Mild Pain (Pain Scale 1-3) 06/26/20 00:00 07/22/20 00:00 Acetaminophen (Tylenol) 650 mg Q4H PRN ORAL Fever over 100.4 06/26/20 00:00 07/24/20 00:00 Aspirin (ASA) 81 mg DAILY ORAL 06/26/20 09:00 08/09/20 08:59 06/26/20 09:25 Atorvastatin Calcium (Lipitor) 80 mg BEDTIME ORAL 06/26/20 21:00 09/22/20 20:59 Chlorhexidine Gluconate (Eri-Hex 2%) 1 applic DAILY@2000 TOPIC 06/26/20 20:00 09/23/20 19:59 Dextrose/Sodium Chloride 1,000 ml @ 75 mls/hr [id number] IV 06/25/20 23:45 07/22/20 00:00 06/26/20 01:35 Docusate Sodium (Colace) 100 mg BID ORAL 06/26/20 09:00 07/22/20 08:59 06/26/20 09:25 Haloperidol Lactate (Haldol) 5 mg Q6H PRN IM Agitation 06/26/20 00:00 08/07/20 00:00 Heparin Sodium/ Dextrose 500 ml @ 23.95 mls/ hr ADJUST PER PROTOCOL IV 06/26/20 05:45 07/26/20 05:44 06/26/20 06:33 Hydralazine HCl (Apresoline) 25 mg Q4H PRN ORAL bp over 160 syst 06/26/20 00:00 09/19/20 00:00 Meropenem 1 gm/ Sodium Chloride 55 ml @ 110 mls/hr Q12H IVPB 06/26/20 11:00 07/01/20 10:59 Metoprolol Tartrate (Lopressor) 12.5 mg Q12HR ORAL 06/26/20 09:00 09/22/20 20:59 Pantoprazole (Protonix) 40 mg DAILY ORAL 06/26/20 09:00 07/24/20 20:29 06/26/20 09:24 Tamsulosin HCl (Flomax) 0.4 mg EVERY 12 HOURS ORAL 06/26/20 09:00 07/23/20 12:44 06/26/20 09:24 Assessment/Plan Assessment/Plan IMPRESSION: 1. Status post fall. 2. History of COVID-19 pneumonia. 3. Scalp laceration. 4. Renal insufficiency. 5. Anemia. 6. Hyperkalemia. DISCUSSION: Currently saturating well on low flow O2. I will follow as director multimedia. Aaron Larry Omar Syed MD Jun 26, 2020 10:59
[2020-06-26] MEDS ORDERED: Meropenem 1 GM in NS 55 ML IVPB SCH ×2 (11:00→23:00)
[2020-06-26 12:00] VITALS: BP 112/62
[2020-06-26] MEDS ORDERED: cefTRIAXone 1 GM in D5W 55 ML IVPB SCH (13:00)
--- NOTE | 2020-06-26 13:28 | Nephrology Progress Note ---
Assessment/Plan Problem List: (1) Leukocytosis (2) Toxic metabolic encephalopathy (3) MARQUIS (acute kidney injury) (4) Renal failure (ARF), acute on chronic (5) Hyperkalemia (6) Hyperkalemia (7) Non-ST elevation NM (NSTEMI) Assessment Acute on chronic renal failure Patient presented with hyperkalemia History of hypertension however presents with borderline low blood pressure Anemia Falls Plan June 26: Patient is now in [facility]. Patient is DNR. Last serum creatinine 1.8 done yesterday. Continue current care. Will check renal parameters tomorrow. June 25: Patient in ICU. Hemodynamically stable. Serum creatinine 1.8. Continue per current management. Continue to monitor renal parameters. Patient DNR. June 24: Patient on his way to ICU due to elevated troponin from almost normal up to 17. Labs reviewed. Ejection fraction around 40%. Continue per cardiology. Continue to monitor renal parameters. June 23: Patient agitated. Pulled the M[facility] out. Will discontinue [facility]. Labs reviewed. Developed leukocytosis. Will give empirical 1 dose of Rocephin pending ID evaluation. Continue to monitor renal parameters. Continue hydration. Monitor blood pressure. Monitor renal parameters. Per orders. Discussed with RN. Repeat chest x-ray ordered. Subjective ROS Limited/Unobtainable: No Constitutional: Reports: malaise, weakness Objective Objective Last 24 Hour Vital Signs Date Time Temp Pulse Resp B/P (MAP) Pulse Ox O2 Delivery O2 Flow Rate FiO2 06/26/20 12:00 98.4 80 20 112/62 (79) 95 06/26/20 12:00 Nasal Cannula 2.0 06/26/20 11:44 95 06/26/20 09:00 78 103/51 06/26/20 08:00 98.9 78 20 103/51 (68) 98 06/26/20 08:00 Nasal Cannula 2.0 06/26/20 07:40 80 06/26/20 04:00 98.9 61 20 108/55 (72) 99 06/26/20 04:00 Nasal Cannula 2.0 06/26/20 04:00 75 06/26/20 00:40 99.5 70 20 102/55 (71) 99 06/26/20 00:00 Nasal Cannula 2.0 06/26/20 00:00 Nasal Cannula 2.0 06/26/20 00:00 77 06/25/20 23:00 75 17 116/48 (70) 100 06/25/20 22:00 64 11 120/59 (79) 100 06/25/20 21:00 73 15 111/51 (71) 100 06/25/20 20:29 70 102/52 06/25/20 20:00 Nasal Cannula 2.0 06/25/20 20:00 72 06/25/20 20:00 98.6 68 16 102/52 (69) 99 06/25/20 19:00 73 14 117/57 (77) 100 06/25/20 18:00 67 14 100/66 (77) 100 06/25/20 17:00 70 13 101/50 (67) 100 06/25/20 16:00 82 06/25/20 16:00 98.9 65 15 113/63 (80) 100 06/25/20 16:00 Nasal Cannula 2.0 06/25/20 15:00 67 13 94/44 (61) 100 06/25/20 14:00 68 15 92/53 (66) 100 Intake and Output 06/25/20 06/26/20 19:00 07:00 Intake Total 1126.8502 ml 1044.165 ml Output Total 1301 ml 350 ml Balance -174.1498 ml 694.165 ml Intake Oral 720 ml 240 ml IV Total 406.8502 ml 804.165 ml Output Urine Total 1300 ml 350 ml Stool Total 1 ml # Bowel Movements 1 2 No can panel done today laboratory Tests 06/25/20 21:05: Activated Partial Thromboplast Time 84H 06/26/20 03:55: Activated Partial Thromboplast Time 53H 06/26/20 12:15: Activated Partial Thromboplast Time 32 Height (Feet): 5 Height (Inches): 6.00 Weight (Pounds): 122 General Appearance: no apparent distress, lethargic, agitated - At times Cardiovascular: other Respiratory/Chest: decreased breath sounds - Variable rate Abdomen: distended Sage Up MD Jun 26, 2020 13:28
--- NOTE | 2020-06-26 13:29 | General Progress Note ---
Assessment/Plan Problem List: (1) Hyperkalemia ICD Codes: E87.5 - Hyperkalemia SNOMED: 01183379, 593231565 (2) Renal insufficiency ICD Codes: N28.9 - Disorder of kidney and ureter, unspecified SNOMED: 477785164, 877357801 (3) Hyperkalemia ICD Codes: E87.5 - Hyperkalemia SNOMED: 61102101 (4) Leukocytosis ICD Codes: D72.829 - Elevated white blood cell count, unspecified SNOMED: 816085149, 489249313 (5) MARQUIS (acute kidney injury) ICD Codes: N17.9 - Acute kidney failure, unspecified SNOMED: 7546227, 88907182 (6) Renal failure (ARF), acute on chronic ICD Codes: N17.9 - Acute kidney failure, unspecified; N18.9 - Chronic kidney disease, unspecified SNOMED: 539955390 (7) Toxic metabolic encephalopathy ICD Codes: G92 - Toxic encephalopathy SNOMED: 487899628 Assessment/Plan: s/p WI sepsis is improving afebrile malnutrition septic shock trop is improving poor historian afebrile Subjective ROS Limited/Unobtainable: Yes Allergies: Coded Allergies: No Known Allergies (Unverified , 06/21/20) Objective Last 24 Hour Vital Signs Date Time Temp Pulse Resp B/P (MAP) Pulse Ox O2 Delivery O2 Flow Rate FiO2 06/26/20 12:00 98.4 80 20 112/62 (79) 95 06/26/20 12:00 Nasal Cannula 2.0 06/26/20 11:44 95 06/26/20 09:00 78 103/51 06/26/20 08:00 98.9 78 20 103/51 (68) 98 06/26/20 08:00 Nasal Cannula 2.0 06/26/20 07:40 80 06/26/20 04:00 98.9 61 20 108/55 (72) 99 06/26/20 04:00 Nasal Cannula 2.0 06/26/20 04:00 75 06/26/20 00:40 99.5 70 20 102/55 (71) 99 06/26/20 00:00 Nasal Cannula 2.0 06/26/20 00:00 Nasal Cannula 2.0 06/26/20 00:00 77 06/25/20 23:00 75 17 116/48 (70) 100 06/25/20 22:00 64 11 120/59 (79) 100 06/25/20 21:00 73 15 111/51 (71) 100 06/25/20 20:29 70 102/52 06/25/20 20:00 Nasal Cannula 2.0 06/25/20 20:00 72 06/25/20 20:00 98.6 68 16 102/52 (69) 99 06/25/20 19:00 73 14 117/57 (77) 100 06/25/20 18:00 67 14 100/66 (77) 100 06/25/20 17:00 70 13 101/50 (67) 100 06/25/20 16:00 82 06/25/20 16:00 98.9 65 15 113/63 (80) 100 06/25/20 16:00 Nasal Cannula 2.0 06/25/20 15:00 67 13 94/44 (61) 100 06/25/20 14:00 68 15 92/53 (66) 100 Intake and Output 06/25/20 06/26/20 18:59 06:59 Intake Total 1030.0782 ml 1055.160 ml Output Total 1301 ml 400 ml Balance -270.9218 ml 655.160 ml Intake Oral 720 ml 240 ml IV Total 310.0782 ml 815.160 ml Output Urine Total 1300 ml 400 ml Stool Total 1 ml # Bowel Movements 1 2 Laboratory Tests 06/25/20 21:05: Activated Partial Thromboplast Time 84H 06/26/20 03:55: Activated Partial Thromboplast Time 53H 06/26/20 12:15: Activated Partial Thromboplast Time 32 Height (Feet): 5 Height (Inches): 6.00 Weight (Pounds): 122 Jefferson Novak MD Jun 26, 2020 13:29
[2020-06-26] MEDS: Heparin 25,000u/D5W 500ml 500 ML IV SCH ×3 (13:48→22:40)
--- NOTE | 2020-06-26 15:23 | NUR ---
CASE MANAGEMENT: REVIEW SI: TOXIC METABOLIC ENCEPHALOPATHY . MARQUIS . NSTEMI T 98.4 HR 80 RR 20 BP 103/51 SAT 98% NC/2L IS: HEPARIN GTT MEROPENEM IV Q12HR ASA 81MG PO QD LOPRESSOR PO Q12HR D5 1/2 NS IVF @ 75ML/HR TRANSFER TO TELEMETRY UNIT STEP DOWN UNIT STATUS DCP: PATIENT IS FROM [facility]
--- NOTE | 2020-06-26 15:31 | NUR ---
*-* INSURANCE *-* UPDATED CLINICALS AND REVIEWS HAVE BEEN FAXED TO: ALL AVAILABLE CLINICALS AND REVIEWS HAVE BEEN FAXED TO [employer] AUTH#[id number] FAX CLINICALS TO [employer] P:[phone] F:[phone]
[2020-06-26 16:00] VITALS: BP 120/71
--- NOTE | 2020-06-26 17:00 | NUR ---
NURSE NOTES: Seen by Dr. Rm and made him aware about the extreme tachy episode, no new order.
--- NOTE | 2020-06-26 17:36 | Cardiac Electrophysiology PN ---
Assessment/Plan Assessment/Plan 1. Acute non-ST elevation myocardial infarction with troponin of 17. Troponin now down to 5 and echo EF 40% DNR. Partially may be due to renal failure or due to COVID myocarditis in view of patient's recent COVID. Continue aspirin 81 mg daily, metoprolol 12.5 b.i.d., and Lipitor 80 2. Transient atrial fib with RVR/SVT. On Lopressor 3. History of recent COVID. 4. Renal failure and hyperkalemia. 5. Contusion. 6. DNR 7. Dementia. DW RN Subjective Subjective Troponin down to 5.3. Confused in restraints. In SR with short bursts of fib/ SVT. Pulled out his PICC line Objective Last 24 Hour Vital Signs Date Time Temp Pulse Resp B/P (MAP) Pulse Ox O2 Delivery O2 Flow Rate FiO2 06/26/20 16:00 104 06/26/20 16:00 Nasal Cannula 2.0 06/26/20 12:00 98.4 80 20 112/62 (79) 95 06/26/20 12:00 Nasal Cannula 2.0 06/26/20 11:44 95 06/26/20 09:00 78 103/51 06/26/20 08:00 98.9 78 20 103/51 (68) 98 06/26/20 08:00 Nasal Cannula 2.0 06/26/20 07:40 80 06/26/20 04:00 98.9 61 20 108/55 (72) 99 06/26/20 04:00 Nasal Cannula 2.0 06/26/20 04:00 75 06/26/20 00:40 99.5 70 20 102/55 (71) 99 06/26/20 00:00 Nasal Cannula 2.0 06/26/20 00:00 Nasal Cannula 2.0 06/26/20 00:00 77 06/25/20 23:00 75 17 116/48 (70) 100 06/25/20 22:00 64 11 120/59 (79) 100 06/25/20 21:00 73 15 111/51 (71) 100 06/25/20 20:29 70 102/52 06/25/20 20:00 Nasal Cannula 2.0 06/25/20 20:00 72 06/25/20 20:00 98.6 68 16 102/52 (69) 99 06/25/20 19:00 73 14 117/57 (77) 100 06/25/20 18:00 67 14 100/66 (77) 100 Intake and Output 06/25/20 06/26/20 19:00 07:00 Intake Total 1126.8502 ml 1044.165 ml Output Total 1301 ml 350 ml Balance -174.1498 ml 694.165 ml Intake Oral 720 ml 240 ml IV Total 406.8502 ml 804.165 ml Output Urine Total 1300 ml 350 ml Stool Total 1 ml # Bowel Movements 1 2 Laboratory Tests Test 06/25/20 21:05 06/26/20 03:55 06/26/20 12:15 Activated Partial Thromboplast Time 84 SEC (23-33) H 53 SEC (23-33) H 32 SEC (23-33) Microbiology Date/Time Source Procedure Growth Status 06/24/20 15:10 Urine,Clean Catch Urine Culture - Final Escherichia Coli - Esbl Complete Objective HEAD AND NECK: No JVD. LUNGS: Coarse rhonchi. CARDIOVASCULAR: Regular S1 and S2 with no gallop. ABDOMEN: Soft. EXTREMITIES: No pitting edema. Mor Rm MD Jun 26, 2020 17:36
[2020-06-26] MEDS ORDERED: HydrALAZINE 25mg tab ORAL PRN ×2 (18:45)
[2020-06-26] MEDS ORDERED: Haloperidol 5mg/ml Inj IM PRN ×2 (18:45)
--- NOTE | 2020-06-26 18:55 | NUR ---
NURSE NOTES: Hand over report given to Gricelda LITTLEJOHN. Pt. remain stable. Cont on Heparin drip 26u/kg/hr. No active bleeding noted.
--- NOTE | 2020-06-26 19:43 | NUR ---
NURSE HAND-OFF REPORT: Important Events on Shift:[] Patient Status: [] Diet: [] Pending Orders: [] Pending Results/Labs:[] Pending MD notification:[] Latest Vital Signs: Temperature 98.5 , Pulse 92 , B/P 120 /71 , Respiratory Rate 20 , O2 SAT 97 , Nasal Cannula, O2 Flow Rate 2.0 . Vital Sign Comment: [] EKG Rhythm: Sinus Rhythm Rhythm change?: N MD Notified?: Regino Novak MD Response: Latest Anglin Fall Score: 85 Fall Risk: High Risk Safety Measures: Call light Within Reach, Bed Alarm Zone 1, Side Rails Side Rails x2, Bed position Low and Locked. Fall Precautions: Yellow Socks Yellow Gown Door Sign Patient Fall Education Report given to [ERON Levine].
--- NOTE | 2020-06-26 19:45 | NUR ---
NURSE NOTES: Patient received from Mei LITTLEJOHN. Patient in stable condition. No s/s of distress. Noted bilateral upper extremity infiltration. Pillows put under arms. IV stopped. ER nurse put in new IV for patient. Patient on heparin drip at a rate of 26units/kg/hr and D51/2NS @75mls/hr. On restraints. Bed in lowest position and locked. Will continue plan of care.
[2020-06-26 20:00] VITALS: BP 123/63
[2020-06-26] MEDS ORDERED: Dyna-Hex 2% Top Sol 2oz TOPIC SCH (20:00)
[2020-06-26] MEDS ORDERED: Atorvastatin 80mg tab ORAL SCH (21:00)
[2020-06-26] MEDS: Metoprolol Tartrate 12.5mg TAB ORAL SCH (21:24)
[2020-06-26] MEDS: Tamsulosin 0.4mg cap ORAL SCH (21:24)
[2020-06-26] MEDS: Atorvastatin 80mg tab ORAL SCH (21:25)
--- NOTE | 2020-06-26 22:00 | NUR ---
NURSE NOTES: Pharmacy called to increase Heparin rate at 30Units/kg/hr from 26units/kg/hr. and bolus of 4500units.
--- NOTE | 2020-06-26 22:22 | Psych Consult Progress Note ---
Psychiatry Progress Note Psychiatry Progress Note Medications Current Medications Medications (Trade) Dose Ordered Sig/Vanessa Route PRN Reason Start Time Stop Time Status Last Admin Dose Admin Acetaminophen (Tylenol) 500 mg Q4H PRN ORAL Mild Pain (Pain Scale 1-3) 06/26/20 18:45 07/22/20 18:44 Acetaminophen (Tylenol) 650 mg Q4H PRN ORAL Fever over 100.4 06/26/20 18:45 07/24/20 18:44 Aspirin (ASA) 81 mg DAILY ORAL 06/27/20 09:00 08/09/20 08:59 Atorvastatin Calcium (Lipitor) 80 mg BEDTIME ORAL 06/26/20 21:00 09/22/20 20:59 06/26/20 21:25 Dextrose/Sodium Chloride 1,000 ml @ 75 mls/hr [id number] IV 06/26/20 18:45 07/22/20 00:00 06/26/20 20:28 Docusate Sodium (Colace) 100 mg BID ORAL 06/27/20 09:00 07/22/20 08:59 Haloperidol Lactate (Haldol) 5 mg Q6H PRN IM Agitation 06/26/20 18:45 08/10/20 18:44 Heparin Sodium (Porcine) (Heparin 5000 units/ml) 4,500 units ONCE IV 06/26/20 21:15 06/26/20 23:15 Heparin Sodium/ Dextrose 500 ml @ 32.659 mls/ hr ADJUST PER PROTOCOL IV 06/26/20 22:15 07/26/20 22:14 Hydralazine HCl (Apresoline) 25 mg Q4H PRN ORAL bp over 160 syst 06/26/20 18:45 09/19/20 18:44 Meropenem 1 gm/ Sodium Chloride 55 ml @ 110 mls/hr Q12H IVPB 06/26/20 23:00 07/01/20 10:59 Metoprolol Tartrate (Lopressor) 12.5 mg Q12HR ORAL 06/26/20 21:00 09/22/20 20:59 06/26/20 21:24 Pantoprazole (Protonix) 40 mg DAILY ORAL 06/27/20 09:00 07/24/20 20:29 Tamsulosin HCl (Flomax) 0.4 mg EVERY 12 HOURS ORAL 06/26/20 21:00 07/23/20 12:44 06/26/20 21:24 Neurological/Psychiatric: Reports: anxiety, depressed, emotional problems Allergies: Coded Allergies: No Known Allergies (Unverified , 06/21/20) Objective Data Height (Feet): 5 Height (Inches): 6.00 Weight (Pounds): 122 General Appearance: agitated - At times Additional Comments: Awake, disoriented. Mood is agitated. Affect is flat. Thought process is concrete. Thought content, no suicidal or homicidal ideation. Cognition is impaired. Insight and judgment is impaired. Assessment/Plan Assessment/Plan: ASSESSMENT: Acute toxic encephalopathy. PLAN: 1. The patient will benefit from bilateral soft restraints. 2. Continue Haldol IM. Chacho Lopez MD Jun 26, 2020 22:22
[2020-06-27] VITALS: BP 125/81
[2020-06-27] MEDS: Meropenem 1 GM in NS 55 ML IVPB SCH ×3 (00:02→23:44)
[2020-06-27 04:00] VITALS: BP 130/63
[2020-06-27 07:29] LABS: EOSINOPHILS % (AUTO) 1.2 % (0.0-3.0); HEMATOCRIT 29.8 % (42.0-52.0); HEMOGLOBIN 10.2 G/DL (14.2-18.0); MEAN CORPUSCULAR VOLUME 90 FL (80-99); NEUTROPHILS % (AUTO) 84.8 % (45.0-75.0); PLATELET COUNT 197 K/UL (150-450); RED BLOOD COUNT 3.31 M/UL (4.70-6.10); RED CELL DISTRIBUTION WIDTH 11.5 % (11.6-14.8)
--- NOTE | 2020-06-27 07:34 | NUR ---
NURSE NOTES: Contacted lab regarding PTT results for 0400 draw, per business planner, PTT is still resulting.
--- NOTE | 2020-06-27 07:49 | General Progress Note ---
Assessment/Plan Assessment/Plan: (1) Degenerative Joint disease (2) NSTEMI Patient to be continued on Tylenol D/w Dr. Smalls and he concurred. Subjective Date patient seen: Jun 27, 2020 Time patient seen: 07:15 - am Allergies: Coded Allergies: No Known Allergies (Unverified , 06/21/20) Subjective REVIEW OF SYSTEMS: HEENT: Denies headaches. RESPIRATORY: Denies shortness of breath. Denies cough. CARDIOVASCULAR: Denies chest pain. GASTROINTESTINAL: Denies nausea, vomiting, or diarrhea. EXTREMITIES: Denies pain. CENTRAL NERVOUS SYSTEM: Denies change in speech pattern. HISTORY OF PRESENT ILLNESS: This is a 84 y/o male seen in [facility] [place]. In bed no signs of pain or distress. No new complaints at this time. Objective Last 24 Hour Vital Signs Date Time Temp Pulse Resp B/P (MAP) Pulse Ox O2 Delivery O2 Flow Rate FiO2 06/27/20 04:00 84 06/27/20 04:00 97.7 63 19 130/63 (85) 96 06/27/20 04:00 Nasal Cannula 2.0 06/27/20 00:00 97.5 67 19 125/81 (96) 97 06/27/20 00:00 Nasal Cannula 2.0 06/27/20 00:00 83 06/26/20 21:24 72 123/63 06/26/20 20:00 Nasal Cannula 2.0 06/26/20 20:00 97.7 72 17 123/63 (83) 97 06/26/20 20:00 80 06/26/20 16:00 98.5 92 20 120/71 (87) 97 06/26/20 16:00 104 06/26/20 16:00 Nasal Cannula 2.0 06/26/20 12:00 98.4 80 20 112/62 (79) 95 06/26/20 12:00 Nasal Cannula 2.0 06/26/20 11:44 95 06/26/20 09:00 78 103/51 06/26/20 08:00 98.9 78 20 103/51 (68) 98 06/26/20 08:00 Nasal Cannula 2.0 Intake and Output 06/26/20 06/27/20 19:00 07:00 Intake Total 1011.270 ml Balance 1011.270 ml IV Total 1011.270 ml # Bowel Movements 1 Laboratory Tests 06/26/20 12:15: Activated Partial Thromboplast Time 32 06/26/20 20:25: Activated Partial Thromboplast Time 31 06/27/20 05:37: Activated Partial Thromboplast Time [Pending], White Blood Count 12.0H, Red Blood Count 3.31L, Hemoglobin 10.2L, Hematocrit 29.8L, Mean Corpuscular Volume 90, Mean Corpuscular Hemoglobin 30.7, Mean Corpuscular Hemoglobin Concent 34.1, Red Cell Distribution Width 11.5L, Platelet Count 197, Mean Platelet Volume 6.9 , Neutrophils (%) (Auto) 84.8H, Lymphocytes (%) (Auto) 7.0L, Monocytes (%) (Auto ) 6.0, Eosinophils (%) (Auto) 1.2, Basophils (%) (Auto) 1.0, Sodium Level [ Pending], Potassium Level [Pending], Chloride Level [Pending], Carbon Dioxide Level [Pending], Blood Urea Nitrogen [Pending], Creatinine [Pending], Estimat Glomerular Filtration Rate [Pending], Glucose Level [Pending], Calcium Level [ Pending], Phosphorus Level [Pending], Magnesium Level [Pending], Total Bilirubin [Pending], Aspartate Amino Transf (AST/SGOT) [Pending], Alanine Aminotransferase (ALT/SGPT) [Pending], Alkaline Phosphatase [Pending], Total Protein [Pending], Albumin [Pending], Globulin [Pending] Height (Feet): 5 Height (Inches): 6.00 Weight (Pounds): 122 Objective CHEST: Clear to auscultation. CARDIOVASCULAR: Regular rate and rhythm. GASTROINTESTINAL: Soft, nontender, EXTREMITIES: No edema. NEUROLOGIC: No changes. Vishal Brito Jun 27, 2020 07:49
--- NOTE | 2020-06-27 07:55 | NUR ---
NURSE HAND-OFF REPORT: Important Events on Shift:[Rate change for Heparin and discontinued IV sites and put in new one due to infiltration on both arms] Patient Status: [Stable ] Diet: [Regular 1:1 Feed] Pending Orders: [] Pending Results/Labs:[PTT] Pending MD notification:[] Latest Vital Signs: Temperature 97.7 , Pulse 63 , B/P 130 /63 , Respiratory Rate 19 , O2 SAT 96 , Nasal Cannula, O2 Flow Rate 2.0 . Vital Sign Comment: [] EKG Rhythm: Sinus Rhythm Rhythm change?: N MD Notified?: Y Sonny Novak MD Response: Latest Anglin Fall Score: 85 Fall Risk: High Risk Safety Measures: Call light Within Reach, Bed Alarm Zone 1, Side Rails Side Rails x2, Bed position Low and Locked. Fall Precautions: Yellow Socks Yellow Gown Door Sign Patient Fall Education Report given to [Louise].
--- NOTE | 2020-06-27 08:00 | NUR ---
NURSE NOTES: Report received from Julianna LITTLEJOHN. Patient is observed in bed, awake, alert, but confused. Respiratory even and unlabored. IV site is asymptomatic, patent, and intact. Heparin gtt is running at 32.659 cc/hr. Bed is in lowest position with side rails up x2 and brakes are engaged. Will continue to monitor.
[2020-06-27 08:11] LABS: ALANINE AMINOTRANSFERASE 43 U/L (12-78); ALBUMIN 2.5 G/DL (3.4-5.0); ALBUMIN/GLOBULIN RATIO 0.7 (1.0-2.7); ALKALINE PHOSPHATASE 73 U/L (46-116); ANION GAP 11 mmol/L (5-15); ASPARTATE AMINO TRANSFERASE 43 U/L (15-37); BILIRUBIN,TOTAL 0.9 MG/DL (0.2-1.0); BLOOD UREA NITROGEN 33 mg/dL (7-18); CALCIUM 8.3 MG/DL (8.5-10.1); CARBON DIOXIDE 22 MMOL/L (21-32); CHLORIDE 106 MMOL/L (98-107); CREATININE 1.4 MG/DL (0.55-1.30); PHOSPHORUS 2.1 MG/DL (2.5-4.9); POTASSIUM 3.5 MMOL/L (3.5-5.1); SODIUM 139 MMOL/L (136-145)
--- NOTE | 2020-06-27 08:20 | NUR ---
NURSE NOTES: Verified with pharmacist Suleman regarding patient's PTT. PTT is within range. PTT ordered for next AM draw.
[2020-06-27] MEDS: D5 1/2NS 1,000 ML IV SCH ×2 (08:28→20:04)
[2020-06-27] MEDS: Tamsulosin 0.4mg cap ORAL SCH ×2 (09:00→20:03)
[2020-06-27] MEDS: Aspirin Baby 81mg ORAL SCH (09:00)
[2020-06-27] MEDS: Metoprolol Tartrate 12.5mg TAB ORAL SCH ×2 (09:01→21:39)
[2020-06-27] MEDS: Docusate 100mg cap ORAL SCH ×2 (09:03→18:27)
[2020-06-27 09:04] VITALS: BP 139/84
--- NOTE | 2020-06-27 10:20 | Pulmonology Progress Note ---
Subjective ROS Limited/Unobtainable: Yes Interval Events: None new Constitutional: Reports: other - transferred from ICU to[facility] HEENT: Repors: no symptoms Respiratory: Reports: no symptoms Cardiovascular: Reports: no symptoms Gastrointestinal/Abdominal: Reports: no symptoms Allergies: Coded Allergies: No Known Allergies (Unverified , 06/21/20) Objective Last 24 Hour Vital Signs Date Time Temp Pulse Resp B/P (MAP) Pulse Ox O2 Delivery O2 Flow Rate FiO2 06/27/20 09:04 98.0 80 19 139/84 (102) 96 06/27/20 09:01 93 167/70 06/27/20 04:00 84 06/27/20 04:00 97.7 63 19 130/63 (85) 96 06/27/20 04:00 Nasal Cannula 2.0 06/27/20 00:00 97.5 67 19 125/81 (96) 97 06/27/20 00:00 Nasal Cannula 2.0 06/27/20 00:00 83 06/26/20 21:24 72 123/63 06/26/20 20:00 Nasal Cannula 2.0 06/26/20 20:00 97.7 72 17 123/63 (83) 97 06/26/20 20:00 80 06/26/20 16:00 98.5 92 20 120/71 (87) 97 06/26/20 16:00 104 06/26/20 16:00 Nasal Cannula 2.0 06/26/20 12:00 98.4 80 20 112/62 (79) 95 06/26/20 12:00 Nasal Cannula 2.0 06/26/20 11:44 95 Intake and Output 06/26/20 06/27/20 19:00 07:00 Intake Total 1011.270 ml Balance 1011.270 ml IV Total 1011.270 ml # Bowel Movements 1 General Appearance: no acute distress HEENT: normocephalic Respiratory: chest wall non-tender, lungs clear Cardiovascular: normal peripheral pulses Abdomen: normal bowel sounds Microbiology Date/Time Source Procedure Growth Status 06/24/20 15:10 Urine,Clean Catch Urine Culture - Final Escherichia Coli - Esbl Complete Laboratory Tests 06/26/20 12:15: Activated Partial Thromboplast Time 32 06/26/20 20:25: Activated Partial Thromboplast Time 31 06/27/20 05:37: Activated Partial Thromboplast Time 76H, White Blood Count 12.0H, Red Blood Count 3.31L, Hemoglobin 10.2L, Hematocrit 29.8L, Mean Corpuscular Volume 90, Mean Corpuscular Hemoglobin 30.7, Mean Corpuscular Hemoglobin Concent 34.1, Red Cell Distribution Width 11.5L, Platelet Count 197, Mean Platelet Volume 6.9, Neutrophils (%) (Auto) 84.8H, Lymphocytes (%) (Auto) 7.0L, Monocytes (%) (Auto) 6.0, Eosinophils (%) (Auto) 1.2, Basophils (%) (Auto) 1.0, Sodium Level 139, Potassium Level 3.5, Chloride Level 106, Carbon Dioxide Level 22, Anion Gap 11, Blood Urea Nitrogen 33H, Creatinine 1.4H, Estimat Glomerular Filtration Rate 58.3, Glucose Level 117H, Calcium Level 8.3L, Phosphorus Level 2.1L, Magnesium Level 2.1, Total Bilirubin 0.9, Aspartate Amino Transf (AST/SGOT) 43H, Alanine Aminotransferase (ALT/SGPT) 43, Alkaline Phosphatase 73, Total Protein 6.2L, Albumin 2.5L, Globulin 3.7, Albumin/Globulin Ratio 0.7L Current Medications Medications (Trade) Dose Ordered Sig/Vanessa Route PRN Reason Start Time Stop Time Status Last Admin Dose Admin Acetaminophen (Tylenol) 500 mg Q4H PRN ORAL Mild Pain (Pain Scale 1-3) 06/26/20 18:45 07/22/20 18:44 Acetaminophen (Tylenol) 650 mg Q4H PRN ORAL Fever over 100.4 06/26/20 18:45 07/24/20 18:44 Aspirin (ASA) 81 mg DAILY ORAL 06/27/20 09:00 08/09/20 08:59 06/27/20 09:00 Atorvastatin Calcium (Lipitor) 80 mg BEDTIME ORAL 06/26/20 21:00 09/22/20 20:59 06/26/20 21:25 Dextrose/Sodium Chloride 1,000 ml @ 75 mls/hr [id number] IV 06/26/20 18:45 07/22/20 00:00 06/27/20 08:28 Docusate Sodium (Colace) 100 mg BID ORAL 06/27/20 09:00 07/22/20 08:59 06/27/20 09:03 Haloperidol Lactate (Haldol) 5 mg Q6H PRN IM Agitation 06/26/20 18:45 08/10/20 18:44 Heparin Sodium/ Dextrose 500 ml @ 32.659 mls/ hr ADJUST PER PROTOCOL IV 06/26/20 22:15 07/26/20 22:14 06/26/20 22:40 Hydralazine HCl (Apresoline) 25 mg Q4H PRN ORAL bp over 160 syst 06/26/20 18:45 09/19/20 18:44 Meropenem 1 gm/ Sodium Chloride 55 ml @ 110 mls/hr 1100,2300 IVPB 06/27/20 00:00 07/02/20 00:00 06/27/20 00:02 Metoprolol Tartrate (Lopressor) 12.5 mg Q12HR ORAL 06/26/20 21:00 09/22/20 20:59 06/27/20 09:01 Pantoprazole (Protonix) 40 mg DAILY ORAL 06/27/20 09:00 07/24/20 20:29 06/27/20 09:03 Tamsulosin HCl (Flomax) 0.4 mg EVERY 12 HOURS ORAL 06/26/20 21:00 07/23/20 12:44 06/27/20 09:00 Assessment/Plan Assessment/Plan IMPRESSION: 1. Status post fall. 2. History of COVID-19 pneumonia. 3. Scalp laceration. 4. Renal insufficiency. 5. Anemia. 6. Hyperkalemia. DISCUSSION: Currently saturating well on low flow O2. I will follow as mixing machine tender cork rod. Aaron Larry Omar Syed MD Jun 27, 2020 10:20
[2020-06-27] MEDS: Heparin 25,000u/D5W 500ml 500 ML IV SCH (11:29)
[2020-06-27 12:00] VITALS: BP 112/56
--- NOTE | 2020-06-27 13:01 | Cardiac Electrophysiology PN ---
Assessment/Plan Assessment/Plan 1. Acute non-ST elevation myocardial infarction with troponin of 17. Troponin now down to 5 and echo EF 40% DNR. Partially may be due to renal failure or due to COVID myocarditis in view of patient's recent COVID. Continue aspirin 81 mg daily, metoprolol 12.5 b.i.d. and Lipitor 80 2. Transient atrial fib with RVR/SVT. On Lopressor and heparin drip 3. History of recent COVID. 4. Renal failure and hyperkalemia. 5. Contusion. 6. DNR 7. Dementia. VINCENT RN Subjective Subjective Troponin down to 5.3. Confused in restraints. In SR with short bursts of fib/ SVT. Pulled out his PICC line. On heparin drip Objective Last 24 Hour Vital Signs Date Time Temp Pulse Resp B/P (MAP) Pulse Ox O2 Delivery O2 Flow Rate FiO2 06/27/20 09:04 98.0 80 19 139/84 (102) 96 06/27/20 09:01 93 167/70 06/27/20 08:00 Nasal Cannula 2.0 06/27/20 04:00 84 06/27/20 04:00 97.7 63 19 130/63 (85) 96 06/27/20 04:00 Nasal Cannula 2.0 06/27/20 00:00 97.5 67 19 125/81 (96) 97 06/27/20 00:00 Nasal Cannula 2.0 06/27/20 00:00 83 06/26/20 21:24 72 123/63 06/26/20 20:00 Nasal Cannula 2.0 06/26/20 20:00 97.7 72 17 123/63 (83) 97 06/26/20 20:00 80 06/26/20 16:00 98.5 92 20 120/71 (87) 97 06/26/20 16:00 104 06/26/20 16:00 Nasal Cannula 2.0 Intake and Output 06/26/20 06/27/20 19:00 07:00 Intake Total 1011.270 ml Balance 1011.270 ml IV Total 1011.270 ml # Bowel Movements 1 Laboratory Tests Test 06/26/20 20:25 06/27/20 05:37 Activated Partial Thromboplast Time 31 SEC (23-33) 76 SEC (23-33) H White Blood Count 12.0 K/UL (4.8-10.8) H Red Blood Count 3.31 M/UL (4.70-6.10) L Hemoglobin 10.2 G/DL (14.2-18.0) L Hematocrit 29.8 % (42.0-52.0) L Mean Corpuscular Volume 90 FL (80-99) Mean Corpuscular Hemoglobin 30.7 PG (27.0-31.0) Mean Corpuscular Hemoglobin Concent 34.1 G/DL (32.0-36.0) Red Cell Distribution Width 11.5 % (11.6-14.8) L Platelet Count 197 K/UL (150-450) Mean Platelet Volume 6.9 FL (6.5-10.1) Neutrophils (%) (Auto) 84.8 % (45.0-75.0) H Lymphocytes (%) (Auto) 7.0 % (20.0-45.0) L Monocytes (%) (Auto) 6.0 % (1.0-10.0) Eosinophils (%) (Auto) 1.2 % (0.0-3.0) Basophils (%) (Auto) 1.0 % (0.0-2.0) Sodium Level 139 MMOL/L (136-145) Potassium Level 3.5 MMOL/L (3.5-5.1) Chloride Level 106 MMOL/L (98-107) Carbon Dioxide Level 22 MMOL/L (21-32) Anion Gap 11 mmol/L (5-15) Blood Urea Nitrogen 33 mg/dL (7-18) H Creatinine 1.4 MG/DL (0.55-1.30) H Estimat Glomerular Filtration Rate 58.3 mL/min (>60) Glucose Level 117 MG/DL (74-106) H Calcium Level 8.3 MG/DL (8.5-10.1) L Phosphorus Level 2.1 MG/DL (2.5-4.9) L Magnesium Level 2.1 MG/DL (1.8-2.4) Total Bilirubin 0.9 MG/DL (0.2-1.0) Aspartate Amino Transf (AST/SGOT) 43 U/L (15-37) H Alanine Aminotransferase (ALT/SGPT) 43 U/L (12-78) Alkaline Phosphatase 73 U/L (46-116) Total Protein 6.2 G/DL (6.4-8.2) L Albumin 2.5 G/DL (3.4-5.0) L Globulin 3.7 g/dL Albumin/Globulin Ratio 0.7 (1.0-2.7) L Microbiology Date/Time Source Procedure Growth Status 06/24/20 15:10 Urine,Clean Catch Urine Culture - Final Escherichia Coli - Esbl Complete Objective HEAD AND NECK: No JVD. LUNGS: Coarse rhonchi. CARDIOVASCULAR: Regular S1 and S2 with no gallop. ABDOMEN: Soft. EXTREMITIES: No pitting edema. Mor Rm MD Jun 27, 2020 13:01
--- NOTE | 2020-06-27 13:31 | NUR ---
CASE MANAGEMENT: REVIEW SI: TOXIC METABOLIC ENCEPHALOPATHY . MARQUIS . NSTEMI T 97.5 HR 67 RR 19 BP 167/70 SAT 96% NC/2L NA 12.0 H/H 10.2/29.8 BUN 33 CR 1.4 APTT 76 IS: HEPARIN GTT MEROPENEM IV Q12HR ASA 81MG PO QD LOPRESSOR PO Q12HR D5 1/2 NS IVF @ 75ML/HR TELEMETRY UNIT STATUS DCP: PATIENT IS FROM [facility]
--- NOTE | 2020-06-27 13:37 | NUR ---
*-* INSURANCE *-* UPDATED CLINICALS AND REVIEWS HAVE BEEN FAXED TO: [facility] P:[phone] F:[phone] AUTH#[id number]
--- NOTE | 2020-06-27 14:27 | Infectious Diseases Prog Note ---
Assessment/Plan Assessment/Plan IMPRESSION: Fever resolved, UTI with E. coli ESBL Pneumonia/ pulmonary edema, Acute renal failure, Chronic kidney disease, Acute [place], Anemia. History of recent COVID19 RECOMMENDATION: Continue Meropenem Subjective ROS Limited/Unobtainable: Yes Constitutional: Denies: fever Neurologic: Reports: other - more alert, on restraint Allergies: Coded Allergies: No Known Allergies (Unverified , 06/21/20) Objective Last 24 Hour Vital Signs Date Time Temp Pulse Resp B/P (MAP) Pulse Ox O2 Delivery O2 Flow Rate FiO2 06/27/20 09:04 98.0 80 19 139/84 (102) 96 06/27/20 09:01 93 167/70 06/27/20 08:00 Nasal Cannula 2.0 06/27/20 04:00 84 06/27/20 04:00 97.7 63 19 130/63 (85) 96 06/27/20 04:00 Nasal Cannula 2.0 06/27/20 00:00 97.5 67 19 125/81 (96) 97 06/27/20 00:00 Nasal Cannula 2.0 06/27/20 00:00 83 06/26/20 21:24 72 123/63 06/26/20 20:00 Nasal Cannula 2.0 06/26/20 20:00 97.7 72 17 123/63 (83) 97 06/26/20 20:00 80 06/26/20 16:00 98.5 92 20 120/71 (87) 97 06/26/20 16:00 104 06/26/20 16:00 Nasal Cannula 2.0 Height (Feet): 5 Height (Inches): 6.00 Weight (Pounds): 121 General Appearance: no acute distress HEENT: mucous membranes moist Respiratory/Chest: lungs clear Cardiovascular: normal rate Abdomen: soft, non tender Genitourinary: other - Mcleod catheter Extremities: no edema Neurologic/Psychiatric: alert, responsive Microbiology Date/Time Source Procedure Growth Status 06/24/20 15:10 Urine,Clean Catch Urine Culture - Final Escherichia Coli - Esbl Complete Laboratory Tests Test 06/26/20 20:25 06/27/20 05:37 Activated Partial Thromboplast Time 31 SEC (23-33) 76 SEC (23-33) H White Blood Count 12.0 K/UL (4.8-10.8) H Red Blood Count 3.31 M/UL (4.70-6.10) L Hemoglobin 10.2 G/DL (14.2-18.0) L Hematocrit 29.8 % (42.0-52.0) L Mean Corpuscular Volume 90 FL (80-99) Mean Corpuscular Hemoglobin 30.7 PG (27.0-31.0) Mean Corpuscular Hemoglobin Concent 34.1 G/DL (32.0-36.0) Red Cell Distribution Width 11.5 % (11.6-14.8) L Platelet Count 197 K/UL (150-450) Mean Platelet Volume 6.9 FL (6.5-10.1) Neutrophils (%) (Auto) 84.8 % (45.0-75.0) H Lymphocytes (%) (Auto) 7.0 % (20.0-45.0) L Monocytes (%) (Auto) 6.0 % (1.0-10.0) Eosinophils (%) (Auto) 1.2 % (0.0-3.0) Basophils (%) (Auto) 1.0 % (0.0-2.0) Sodium Level 139 MMOL/L (136-145) Potassium Level 3.5 MMOL/L (3.5-5.1) Chloride Level 106 MMOL/L (98-107) Carbon Dioxide Level 22 MMOL/L (21-32) Anion Gap 11 mmol/L (5-15) Blood Urea Nitrogen 33 mg/dL (7-18) H Creatinine 1.4 MG/DL (0.55-1.30) H Estimat Glomerular Filtration Rate 58.3 mL/min (>60) Glucose Level 117 MG/DL (74-106) H Calcium Level 8.3 MG/DL (8.5-10.1) L Phosphorus Level 2.1 MG/DL (2.5-4.9) L Magnesium Level 2.1 MG/DL (1.8-2.4) Total Bilirubin 0.9 MG/DL (0.2-1.0) Aspartate Amino Transf (AST/SGOT) 43 U/L (15-37) H Alanine Aminotransferase (ALT/SGPT) 43 U/L (12-78) Alkaline Phosphatase 73 U/L (46-116) Total Protein 6.2 G/DL (6.4-8.2) L Albumin 2.5 G/DL (3.4-5.0) L Globulin 3.7 g/dL Albumin/Globulin Ratio 0.7 (1.0-2.7) L Current Medications Medications (Trade) Dose Ordered Sig/Vanessa Route PRN Reason Start Time Stop Time Status Last Admin Dose Admin Acetaminophen (Tylenol) 500 mg Q4H PRN ORAL Mild Pain (Pain Scale 1-3) 06/26/20 18:45 07/22/20 18:44 Acetaminophen (Tylenol) 650 mg Q4H PRN ORAL Fever over 100.4 06/26/20 18:45 07/24/20 18:44 Aspirin (ASA) 81 mg DAILY ORAL 06/27/20 09:00 08/09/20 08:59 06/27/20 09:00 Atorvastatin Calcium (Lipitor) 80 mg BEDTIME ORAL 06/26/20 21:00 09/22/20 20:59 06/26/20 21:25 Dextrose/Sodium Chloride 1,000 ml @ 75 mls/hr [id number] IV 06/26/20 18:45 07/22/20 00:00 06/27/20 08:28 Docusate Sodium (Colace) 100 mg BID ORAL 06/27/20 09:00 07/22/20 08:59 06/27/20 09:03 Haloperidol Lactate (Haldol) 5 mg Q6H PRN IM Agitation 06/26/20 18:45 08/10/20 18:44 Heparin Sodium/ Dextrose 500 ml @ 32.659 mls/ hr ADJUST PER PROTOCOL IV 06/26/20 22:15 07/26/20 22:14 06/27/20 11:29 Hydralazine HCl (Apresoline) 25 mg Q4H PRN ORAL bp over 160 syst 06/26/20 18:45 09/19/20 18:44 Meropenem 1 gm/ Sodium Chloride 55 ml @ 110 mls/hr 1100,2300 IVPB 06/27/20 00:00 07/02/20 00:00 06/27/20 11:16 Metoprolol Tartrate (Lopressor) 12.5 mg Q12HR ORAL 06/26/20 21:00 09/22/20 20:59 06/27/20 09:01 Pantoprazole (Protonix) 40 mg DAILY ORAL 06/27/20 09:00 07/24/20 20:29 06/27/20 09:03 Tamsulosin HCl (Flomax) 0.4 mg EVERY 12 HOURS ORAL 06/26/20 21:00 07/23/20 12:44 06/27/20 09:00 Shravan Rodriguez MD Jun 27, 2020 14:27
--- NOTE | 2020-06-27 15:26 | Nephrology Progress Note ---
Assessment/Plan Problem List: (1) Leukocytosis (2) Toxic metabolic encephalopathy (3) MARQUIS (acute kidney injury) (4) Renal failure (ARF), acute on chronic (5) Hyperkalemia (6) Hyperkalemia (7) Non-ST elevation WA (NSTEMI) Assessment Acute on chronic renal failure Patient presented with hyperkalemia History of hypertension however presents with borderline low blood pressure Anemia Falls Plan June 27: Labs reviewed. Renal parameters stable. Continue current care. Patient DNR. June 26: Patient is now in [facility]. Patient is DNR. Last serum creatinine 1.8 done yesterday. Continue current care. Will check renal parameters tomorrow. June 25: Patient in ICU. Hemodynamically stable. Serum creatinine 1.8. Continue per current management. Continue to monitor renal parameters. Patient DNR. June 24: Patient on his way to ICU due to elevated troponin from almost normal up to 17. Labs reviewed. Ejection fraction around 40%. Continue per cardiology. Continue to monitor renal parameters. June 23: Patient agitated. Pulled the Mcleod out. Will discontinue Mcleod. Labs reviewed. Developed leukocytosis. Will give empirical 1 dose of Rocephin pending ID evaluation. Continue to monitor renal parameters. Continue hydration. Monitor blood pressure. Monitor renal parameters. Per orders. Discussed with RN. Repeat chest x-ray ordered. Subjective ROS Limited/Unobtainable: No Constitutional: Reports: malaise Objective Objective Last 24 Hour Vital Signs Date Time Temp Pulse Resp B/P (MAP) Pulse Ox O2 Delivery O2 Flow Rate FiO2 06/27/20 09:04 98.0 80 19 139/84 (102) 96 06/27/20 09:01 93 167/70 06/27/20 08:00 Nasal Cannula 2.0 06/27/20 04:00 84 06/27/20 04:00 97.7 63 19 130/63 (85) 96 06/27/20 04:00 Nasal Cannula 2.0 06/27/20 00:00 97.5 67 19 125/81 (96) 97 06/27/20 00:00 Nasal Cannula 2.0 06/27/20 00:00 83 06/26/20 21:24 72 123/63 06/26/20 20:00 Nasal Cannula 2.0 06/26/20 20:00 97.7 72 17 123/63 (83) 97 8/18/20 20:00 80 06/26/20 16:00 98.5 92 20 120/71 (87) 97 06/26/20 16:00 104 06/26/20 16:00 Nasal Cannula 2.0 Intake and Output 06/26/20 06/27/20 19:00 07:00 Intake Total 1011.270 ml Balance 1011.270 ml IV Total 1011.270 ml # Bowel Movements 1 Current Medications Medications (Trade) Dose Ordered Sig/Vanessa Route PRN Reason Start Time Stop Time Status Last Admin Dose Admin Acetaminophen (Tylenol) 500 mg Q4H PRN ORAL Mild Pain (Pain Scale 1-3) 06/26/20 18:45 07/22/20 18:44 Acetaminophen (Tylenol) 650 mg Q4H PRN ORAL Fever over 100.4 06/26/20 18:45 07/24/20 18:44 Aspirin (ASA) 81 mg DAILY ORAL 06/27/20 09:00 08/09/20 08:59 06/27/20 09:00 Atorvastatin Calcium (Lipitor) 80 mg BEDTIME ORAL 06/26/20 21:00 09/22/20 20:59 06/26/20 21:25 Dextrose/Sodium Chloride 1,000 ml @ 75 mls/hr [id number] IV 06/26/20 18:45 07/22/20 00:00 06/27/20 08:28 Docusate Sodium (Colace) 100 mg BID ORAL 06/27/20 09:00 07/22/20 08:59 06/27/20 09:03 Haloperidol Lactate (Haldol) 5 mg Q6H PRN IM Agitation 06/26/20 18:45 08/10/20 18:44 Heparin Sodium/ Dextrose 500 ml @ 32.659 mls/ hr ADJUST PER PROTOCOL IV 06/26/20 22:15 07/26/20 22:14 06/27/20 11:29 Hydralazine HCl (Apresoline) 25 mg Q4H PRN ORAL bp over 160 syst 06/26/20 18:45 09/19/20 18:44 Meropenem 1 gm/ Sodium Chloride 55 ml @ 110 mls/hr 1100,2300 IVPB 06/27/20 00:00 07/02/20 00:00 06/27/20 11:16 Metoprolol Tartrate (Lopressor) 12.5 mg Q12HR ORAL 06/26/20 21:00 09/22/20 20:59 06/27/20 09:01 Pantoprazole (Protonix) 40 mg DAILY ORAL 06/27/20 09:00 07/24/20 20:29 06/27/20 09:03 Tamsulosin HCl (Flomax) 0.4 mg EVERY 12 HOURS ORAL 06/26/20 21:00 07/23/20 12:44 06/27/20 09:00 Laboratory Tests 06/26/20 20:25: Activated Partial Thromboplast Time 31 06/27/20 05:37: Activated Partial Thromboplast Time 76H, White Blood Count 12.0H, Red Blood Count 3.31L, Hemoglobin 10.2L, Hematocrit 29.8L, Mean Corpuscular Volume 90, Mean Corpuscular Hemoglobin 30.7, Mean Corpuscular Hemoglobin Concent 34.1, Red Cell Distribution Width 11.5L, Platelet Count 197, Mean Platelet Volume 6.9, Neutrophils (%) (Auto) 84.8H, Lymphocytes (%) (Auto) 7.0L, Monocytes (%) (Auto) 6.0, Eosinophils (%) (Auto) 1.2, Basophils (%) (Auto) 1.0, Sodium Level 139, Potassium Level 3.5, Chloride Level 106, Carbon Dioxide Level 22, Anion Gap 11, Blood Urea Nitrogen 33H, Creatinine 1.4H, Estimat Glomerular Filtration Rate 58.3, Glucose Level 117H, Calcium Level 8.3L, Phosphorus Level 2.1L, Magnesium Level 2.1, Total Bilirubin 0.9, Aspartate Amino Transf (AST/SGOT) 43H, Alanine Aminotransferase (ALT/SGPT) 43, Alkaline Phosphatase 73, Total Protein 6.2L, Albumin 2.5L, Globulin 3.7, Albumin/Globulin Ratio 0.7L Height (Feet): 5 Height (Inches): 6.00 Weight (Pounds): 121 General Appearance: no apparent distress Cardiovascular: tachycardia - 80-90 rate Respiratory/Chest: decreased breath sounds Abdomen: distended Sage Up MD Jun 27, 2020 15:26
[2020-06-27 16:00] VITALS: BP 135/66
[2020-06-27] MEDS ORDERED: D5 1/2NS 1000ml IV ONE (16:00)
[2020-06-27] MEDS ORDERED: Tubing IV Secondary IV ONE (16:00)
--- NOTE | 2020-06-27 19:26 | NUR ---
HAND-OFF: Report given to Alyse LITTLEJOHN. Patient is in stable condition. Endorsed plan of care.
--- NOTE | 2020-06-27 19:27 | NUR ---
NURSE NOTES: Received patient in bed, semi-rose's position, resting, breathing unlabored and even, restraints on with two-finger breaths bilaterally, pulses on bilateral upper extremities are +2 and equal, bilateral edema noted due to prior infiltrated previous IVs according to transferring nurse ERON Gil. equipment monitor phototypesetting on, alert and orientedx2. Mcleod catheter patnt and draining clear yellow urine.
--- NOTE | 2020-06-27 19:27 | NUR ---
NURSE HAND-OFF REPORT: Important Events on Shift: Patient Status: stable Diet: regular diet. Pending Orders: Pending Results/Labs: PTT at 0400 Pending MD notification: Latest Vital Signs: Temperature 98.1 , Pulse 71 , B/P 135 /66 , Respiratory Rate 19 , O2 SAT 96 , Nasal Cannula, O2 Flow Rate 2.0 . Vital Sign Comment: EKG Rhythm: Sinus Rhythm Rhythm change?: N MD Notified?: Regino Novak MD Response: Latest Anglin Fall Score: 85 Fall Risk: High Risk Safety Measures: Call light Within Reach, Bed Alarm Zone 1, Side Rails Side Rails x2, Bed position Low and Locked. Fall Precautions: Yellow Socks Yellow Gown Door Sign Patient Fall Education Report given to Alyse LITTLEJOHN
[2020-06-27 20:00] VITALS: BP 126/42
[2020-06-27] MEDS: Atorvastatin 80mg tab ORAL SCH (20:03)
--- NOTE | 2020-06-27 21:18 | NUR ---
NURSE NOTES: Patient is resting and restraints taken off one at a time to assess skin. Skin is intact and remains unchanged upon receiving the patient earlier today, pulses are equal, +2, skin is edematous +1. Patient is confused, alert and oriented x1, and noted hands were wandering and were attempting to pull out IV when restraints were momentarily off. Re-applied restraints safely without any incidents. Fluids, snacks and hygiene offered.
--- NOTE | 2020-06-27 22:10 | General Progress Note ---
Assessment/Plan Problem List: (1) Hyperkalemia ICD Codes: E87.5 - Hyperkalemia SNOMED: 48019153, 963799696 (2) Renal insufficiency ICD Codes: N28.9 - Disorder of kidney and ureter, unspecified SNOMED: 543040710, 786017587 (3) Hyperkalemia ICD Codes: E87.5 - Hyperkalemia SNOMED: 21410988 (4) Leukocytosis ICD Codes: D72.829 - Elevated white blood cell count, unspecified SNOMED: 129589619, 416815210 (5) MARQUIS (acute kidney injury) ICD Codes: N17.9 - Acute kidney failure, unspecified SNOMED: 1786294, 52340968 (6) Renal failure (ARF), acute on chronic ICD Codes: N17.9 - Acute kidney failure, unspecified; N18.9 - Chronic kidney disease, unspecified SNOMED: 098757179 (7) Toxic metabolic encephalopathy ICD Codes: G92 - Toxic encephalopathy SNOMED: 275409077 Assessment/Plan: s/p [place] sepsis check lytes no acute events septic shock trop is improving poor historian afebrile Subjective ROS Limited/Unobtainable: Yes Allergies: Coded Allergies: No Known Allergies (Unverified , 06/21/20) Objective Last 24 Hour Vital Signs Date Time Temp Pulse Resp B/P (MAP) Pulse Ox O2 Delivery O2 Flow Rate FiO2 06/27/20 21:39 73 126/42 06/27/20 20:00 73 06/27/20 20:00 98.8 73 18 126/42 (70) 93 06/27/20 16:00 98.1 71 19 135/66 (89) 96 06/27/20 15:40 95 06/27/20 12:00 97.9 66 19 112/56 (74) 96 06/27/20 12:00 72 06/27/20 09:04 98.0 80 19 139/84 (102) 96 06/27/20 09:01 93 167/70 06/27/20 08:00 Nasal Cannula 2.0 06/27/20 07:56 78 06/27/20 04:00 84 06/27/20 04:00 97.7 63 19 130/63 (85) 96 06/27/20 04:00 Nasal Cannula 2.0 06/27/20 00:00 97.5 67 19 125/81 (96) 97 06/27/20 00:00 Nasal Cannula 2.0 06/27/20 00:00 83 Intake and Output 06/26/20 06/27/20 19:00 07:00 Intake Total 1011.270 ml Balance 1011.270 ml IV Total 1011.270 ml # Bowel Movements 1 Laboratory Tests 06/27/20 05:37: White Blood Count 12.0H, Red Blood Count 3.31L, Hemoglobin 10.2L, Hematocrit 29.8L, Mean Corpuscular Volume 90, Mean Corpuscular Hemoglobin 30.7, Mean Corpuscular Hemoglobin Concent 34.1, Red Cell Distribution Width 11.5L, Platelet Count 197, Mean Platelet Volume 6.9, Neutrophils (%) (Auto) 84.8H, Lymphocytes (%) (Auto) 7.0L, Monocytes (%) (Auto) 6.0, Eosinophils (%) (Auto) 1.2, Basophils (%) (Auto) 1.0, Activated Partial Thromboplast Time 76H, Sodium Level 139, Potassium Level 3.5, Chloride Level 106, Carbon Dioxide Level 22, Anion Gap 11, Blood Urea Nitrogen 33H, Creatinine 1.4H, Estimat Glomerular Filtration Rate 58.3, Glucose Level 117H, Calcium Level 8.3L, Phosphorus Level 2.1L, Magnesium Level 2.1, Total Bilirubin 0.9, Aspartate Amino Transf (AST/SGOT ) 43H, Alanine Aminotransferase (ALT/SGPT) 43, Alkaline Phosphatase 73, Total Protein 6.2L, Albumin 2.5L, Globulin 3.7, Albumin/Globulin Ratio 0.7L Height (Feet): 5 Height (Inches): 6.00 Weight (Pounds): 121 Jefferson Novak MD Jun 27, 2020 22:10
--- NOTE | 2020-06-27 23:45 | NUR ---
NURSE NOTES: The prescribed Meropenum 1gm was infused into the left hand.
--- NOTE | 2020-06-27 23:52 | Psych Consult Progress Note ---
Psychiatry Progress Note Psychiatry Progress Note Medications Current Medications Medications (Trade) Dose Ordered Sig/Vanessa Route PRN Reason Start Time Stop Time Status Last Admin Dose Admin Acetaminophen (Tylenol) 500 mg Q4H PRN ORAL Mild Pain (Pain Scale 1-3) 06/26/20 18:45 07/22/20 18:44 Acetaminophen (Tylenol) 650 mg Q4H PRN ORAL Fever over 100.4 06/26/20 18:45 07/24/20 18:44 Aspirin (ASA) 81 mg DAILY ORAL 06/27/20 09:00 08/09/20 08:59 06/27/20 09:00 Atorvastatin Calcium (Lipitor) 80 mg BEDTIME ORAL 06/26/20 21:00 09/22/20 20:59 06/27/20 20:03 Dextrose/Sodium Chloride 1,000 ml @ 75 mls/hr [id number] IV 06/26/20 18:45 07/22/20 00:00 06/27/20 20:04 Docusate Sodium (Colace) 100 mg BID ORAL 06/27/20 09:00 07/22/20 08:59 06/27/20 18:27 Haloperidol Lactate (Haldol) 5 mg Q6H PRN IM Agitation 06/26/20 18:45 08/10/20 18:44 Heparin Sodium/ Dextrose 500 ml @ 32.659 mls/ hr ADJUST PER PROTOCOL IV 06/26/20 22:15 07/26/20 22:14 06/27/20 11:29 Hydralazine HCl (Apresoline) 25 mg Q4H PRN ORAL bp over 160 syst 06/26/20 18:45 09/19/20 18:44 Meropenem 1 gm/ Sodium Chloride 55 ml @ 110 mls/hr 1100,2300 IVPB 06/27/20 00:00 07/02/20 00:00 06/27/20 23:44 Metoprolol Tartrate (Lopressor) 12.5 mg Q12HR ORAL 06/26/20 21:00 09/22/20 20:59 06/27/20 21:39 Pantoprazole (Protonix) 40 mg DAILY ORAL 06/27/20 09:00 07/24/20 20:29 06/27/20 09:03 Tamsulosin HCl (Flomax) 0.4 mg EVERY 12 HOURS ORAL 06/26/20 21:00 07/23/20 12:44 06/27/20 20:03 Neurological/Psychiatric: Reports: anxiety, depressed, emotional problems Allergies: Coded Allergies: No Known Allergies (Unverified , 06/21/20) Objective Data Height (Feet): 5 Height (Inches): 6.00 Weight (Pounds): 121 General Appearance: no apparent distress, alert, confused, agitated Additional Comments: Awake, disoriented. Mood is agitated. Affect is flat. Thought process is concrete. Thought content, no suicidal or homicidal ideation. Cognition is impaired. Insight and judgment is impaired. Assessment/Plan [place] I: ASSESSMENT: Acute toxic encephalopathy. PLAN: 1. The patient will benefit from bilateral soft restraints. 2. Continue Haldol IM. Status Narrative ASSESSMENT: Acute toxic encephalopathy. PLAN: 1. The patient will benefit from bilateral soft restraints. 2. Continue Haldol IM. Assessment/Plan: ASSESSMENT: Acute toxic encephalopathy. PLAN: 1. The patient will benefit from bilateral soft restraints. 2. Continue Haldol IM. Chacho Lopez MD Jun 27, 2020 23:52
[2020-06-28] VITALS: BP 152/50
[2020-06-28] MEDS: Heparin 25,000u/D5W 500ml 500 ML IV SCH (03:50)
[2020-06-28 04:00] VITALS: BP 123/59
--- NOTE | 2020-06-28 07:25 | NUR ---
NURSE HAND-OFF REPORT: Important Events on Shift: Heparin is infusing at the prescribed rate (32.65mL/h) Patient Status: Diet: Pending Orders: Pending Results/Labs: Pending MD notification: Latest Vital Signs: Temperature 97.7 , Pulse 89 , B/P 123 /59 , Respiratory Rate 19 , O2 SAT 93 , Nasal Cannula, O2 Flow Rate 2.0 . Vital Sign Comment: EKG Rhythm: SR with BBB Rhythm change?: N MD Notified?: Regino Novak MD Response: Latest Anglin Fall Score: 85 Fall Risk: High Risk Safety Measures: Call light Within Reach, Bed Alarm Zone 2, Side Rails Side Rails x2, Bed position Low and Locked. Fall Precautions: Yellow Socks Yellow Gown Door Sign Patient Fall Education Report given to .
--- NOTE | 2020-06-28 07:30 | NUR ---
NURSE NOTES: Received pt from [facility]. Pt is sleeping, pt has NC 2LMP. Pt has intact iv access MART 18G and LFA 18G are running well. Pt is on continues heart monitoring. pt has Mcleod cath in place is working well. Dr Novak is aware about troponin 5.305 and other lab results and V/S and WBC 12 ordered stat troponin, noted and carried out. all needs attended, bed is locked and is in the lowest position. call light within easy reach. will continue to monitor.
[2020-06-28 07:52] VITALS: BP 132/63
--- NOTE | 2020-06-28 08:41 | NUR ---
CASE MANAGEMENT: REVIEW SI: TOXIC METABOLIC ENCEPHALOPATHY . MARQUIS . NSTEMI T 99.7 HR 81 RR 19 BP 152/50 SAT 93% NC/2L APTT 93 IS: HEPARIN GTT MEROPENEM IV Q12HR ASA 81MG PO QD LOPRESSOR PO Q12HR D5 1/2 NS IVF @ 75ML/HR BILATERAL WRIST RESTRAINT TELEMETRY UNIT STATUS DCP: PATIENT IS FROM [facility]
--- NOTE | 2020-06-28 08:44 | NUR ---
*-* INSURANCE *-* UPDATED CLINICALS AND REVIEWS HAVE BEEN FAXED TO: [facility] P:[phone] F:[phone] AUTH#[id number]
[2020-06-28] MEDS: Metoprolol Tartrate 12.5mg TAB ORAL SCH ×2 (09:17→21:02)
[2020-06-28] MEDS: Docusate 100mg cap ORAL SCH ×2 (09:17→17:14)
[2020-06-28] MEDS: Tamsulosin 0.4mg cap ORAL SCH ×2 (09:18→21:04)
[2020-06-28] MEDS: Aspirin Baby 81mg ORAL SCH (09:18)
[2020-06-28] MEDS: Acetaminophen 500mg (ES) tab ORAL PRN (09:18)
[2020-06-28] MEDS: D5 1/2NS 1,000 ML IV SCH ×2 (09:25→23:48)
--- NOTE | 2020-06-28 09:44 | NUR ---
NURSE NOTES: Dr To is aware about troponin 0.721, no new order to RN. Will continue to monitor.
--- NOTE | 2020-06-28 10:24 | Nephrology Progress Note ---
Assessment/Plan Problem List: (1) Leukocytosis (2) Toxic metabolic encephalopathy (3) MARQUIS (acute kidney injury) (4) Renal failure (ARF), acute on chronic (5) Hyperkalemia (6) Hyperkalemia (7) Non-ST elevation AK (NSTEMI) Assessment Acute on chronic renal failure Patient presented with hyperkalemia History of hypertension however presents with borderline low blood pressure Anemia Falls Plan June 28: No labs drawn today. Clinically stable. Will check labs tomorrow. June 27: Labs reviewed. Renal parameters stable. Continue current care. Patient DNR. June 26: Patient is now in [facility]. Patient is DNR. Last serum creatinine 1.8 done yesterday. Continue current care. Will check renal parameters tomorrow. June 25: Patient in ICU. Hemodynamically stable. Serum creatinine 1.8. Continue per current management. Continue to monitor renal parameters. Patient DNR. June 24: Patient on his way to ICU due to elevated troponin from almost normal up to 17. Labs reviewed. Ejection fraction around 40%. Continue per cardiology. Continue to monitor renal parameters. June 23: Patient agitated. Pulled the Mcleod out. Will discontinue Mcleod. Labs reviewed. Developed leukocytosis. Will give empirical 1 dose of Rocephin pending ID evaluation. Continue to monitor renal parameters. Continue hydration. Monitor blood pressure. Monitor renal parameters. Per orders. Discussed with RN. Repeat chest x-ray ordered. Subjective ROS Limited/Unobtainable: No Constitutional: Reports: malaise, weakness Objective Objective Last 24 Hour Vital Signs Date Time Temp Pulse Resp B/P (MAP) Pulse Ox O2 Delivery O2 Flow Rate FiO2 06/28/20 09:17 81 132/63 06/28/20 09:00 Nasal Cannula 2.0 06/28/20 08:08 74 06/28/20 07:52 99.7 81 20 132/63 (86) 94 06/28/20 04:00 89 06/28/20 04:00 97.7 89 19 123/59 (80) 93 06/28/20 00:00 97.9 92 18 152/50 (84) 93 06/28/20 00:00 92 06/27/20 21:39 73 126/42 06/27/20 21:00 Nasal Cannula 2.0 06/27/20 20:00 73 06/27/20 20:00 98.8 73 18 126/42 (70) 93 06/27/20 16:00 98.1 71 19 135/66 (89) 96 06/27/20 15:40 95 06/27/20 12:00 97.9 66 19 112/56 (74) 96 06/27/20 12:00 72 Intake and Output 06/27/20 06/28/20 19:00 07:00 Intake Total 32.659 ml 285.766 ml Balance 32.659 ml 285.766 ml IV Total 32.659 ml 285.766 ml Laboratory Tests 06/28/20 04:00: Activated Partial Thromboplast Time 93H 06/28/20 09:05: Troponin I 0.721H Height (Feet): 5 Height (Inches): 6.00 Weight (Pounds): 121 General Appearance: no apparent distress Objective No change Sage Up MD Jun 28, 2020 10:24
--- NOTE | 2020-06-28 10:48 | Infectious Diseases Prog Note ---
Assessment/Plan Assessment/Plan IMPRESSION: Fever resolved, UTI with E. coli ESBL Pneumonia/ pulmonary edema, Acute renal failure, Chronic kidney disease, Acute SC, Anemia. History of recent COVID19 RECOMMENDATION: Continue Meropenem Subjective ROS Limited/Unobtainable: Yes Neurologic: Reports: confusion, other - on restraint Allergies: Coded Allergies: No Known Allergies (Unverified , 06/21/20) Objective Last 24 Hour Vital Signs Date Time Temp Pulse Resp B/P (MAP) Pulse Ox O2 Delivery O2 Flow Rate FiO2 06/28/20 09:17 81 132/63 06/28/20 09:00 Nasal Cannula 2.0 06/28/20 08:08 74 06/28/20 07:52 99.7 81 20 132/63 (86) 94 06/28/20 04:00 89 06/28/20 04:00 97.7 89 19 123/59 (80) 93 06/28/20 00:00 97.9 92 18 152/50 (84) 93 06/28/20 00:00 92 06/27/20 21:39 73 126/42 06/27/20 21:00 Nasal Cannula 2.0 06/27/20 20:00 73 06/27/20 20:00 98.8 73 18 126/42 (70) 93 06/27/20 16:00 98.1 71 19 135/66 (89) 96 06/27/20 15:40 95 06/27/20 12:00 97.9 66 19 112/56 (74) 96 06/27/20 12:00 72 Height (Feet): 5 Height (Inches): 6.00 Weight (Pounds): 121 HEENT: mucous membranes moist Respiratory/Chest: rhonchi - bilaterally, other - oxygen by nasal cannula Cardiovascular: normal rate, other - right arm PICC line Abdomen: soft, non tender Extremities: no edema Neurologic/Psychiatric: other - sleeping Laboratory Tests Test 06/28/20 04:00 06/28/20 09:05 Activated Partial Thromboplast Time 93 SEC (23-33) H Troponin I 0.721 ng/mL (0.000-0.056) Current Medications Medications (Trade) Dose Ordered Sig/Vanessa Route PRN Reason Start Time Stop Time Status Last Admin Dose Admin Acetaminophen (Tylenol) 500 mg Q4H PRN ORAL Mild Pain (Pain Scale 1-3) 06/26/20 18:45 07/22/20 18:44 06/28/20 09:18 Acetaminophen (Tylenol) 650 mg Q4H PRN ORAL Fever over 100.4 06/26/20 18:45 07/24/20 18:44 Aspirin (ASA) 81 mg DAILY ORAL 06/27/20 09:00 08/09/20 08:59 06/28/20 09:18 Atorvastatin Calcium (Lipitor) 80 mg BEDTIME ORAL 06/26/20 21:00 09/22/20 20:59 06/27/20 20:03 Dextrose/Sodium Chloride 1,000 ml @ 75 mls/hr [id number] IV 06/26/20 18:45 07/22/20 00:00 06/28/20 09:25 Docusate Sodium (Colace) 100 mg BID ORAL 06/27/20 09:00 07/22/20 08:59 06/28/20 09:17 Haloperidol Lactate (Haldol) 5 mg Q6H PRN IM Agitation 06/26/20 18:45 08/10/20 18:44 Heparin Sodium/ Dextrose 500 ml @ 32.659 mls/ hr ADJUST PER PROTOCOL IV 06/26/20 22:15 07/26/20 22:14 06/28/20 03:50 Hydralazine HCl (Apresoline) 25 mg Q4H PRN ORAL bp over 160 syst 06/26/20 18:45 09/19/20 18:44 Meropenem 1 gm/ Sodium Chloride 55 ml @ 110 mls/hr 1100,2300 IVPB 06/27/20 00:00 07/02/20 00:00 06/27/20 23:44 Metoprolol Tartrate (Lopressor) 12.5 mg Q12HR ORAL 06/26/20 21:00 09/22/20 20:59 06/28/20 09:17 Pantoprazole (Protonix) 40 mg DAILY ORAL 06/27/20 09:00 07/24/20 20:29 06/28/20 09:17 Tamsulosin HCl (Flomax) 0.4 mg EVERY 12 HOURS ORAL 06/26/20 21:00 07/23/20 12:44 06/28/20 09:18 Shravan Rodriguez MD Jun 28, 2020 10:48
[2020-06-28] MEDS: Meropenem 1 GM in NS 55 ML IVPB SCH ×2 (11:26→23:18)
--- NOTE | 2020-06-28 11:26 | NUR ---
NURSE NOTES: Dr Novak is aware about gaining weight 8pounds, no new order to RN. Will continue to monitor.
--- NOTE | 2020-06-28 11:32 | NUR ---
NURSE NOTES: Dr Abreu visited pt and is aware about WBC 12 T 99.7 and other lab results and V/S, no new order to RN. Will continue to monitor.
[2020-06-28 12:00] VITALS: BP 105/48
--- NOTE | 2020-06-28 13:08 | Pulmonology Progress Note ---
Subjective ROS Limited/Unobtainable: Yes Interval Events: None new Constitutional: Denies: fever HEENT: Repors: no symptoms Respiratory: Reports: no symptoms Cardiovascular: Reports: no symptoms Gastrointestinal/Abdominal: Reports: no symptoms Allergies: Coded Allergies: No Known Allergies (Unverified , 06/21/20) Objective Last 24 Hour Vital Signs Date Time Temp Pulse Resp B/P (MAP) Pulse Ox O2 Delivery O2 Flow Rate FiO2 06/28/20 12:00 98.1 60 20 105/48 (67) 98 06/28/20 09:17 81 132/63 06/28/20 09:00 Nasal Cannula 2.0 06/28/20 08:08 74 06/28/20 07:52 99.7 81 20 132/63 (86) 94 06/28/20 04:00 89 06/28/20 04:00 97.7 89 19 123/59 (80) 93 06/28/20 00:00 97.9 92 18 152/50 (84) 93 06/28/20 00:00 92 06/27/20 21:39 73 126/42 06/27/20 21:00 Nasal Cannula 2.0 06/27/20 20:00 73 06/27/20 20:00 98.8 73 18 126/42 (70) 93 06/27/20 16:00 98.1 71 19 135/66 (89) 96 06/27/20 15:40 95 Intake and Output 06/27/20 06/28/20 19:00 07:00 Intake Total 32.659 ml 393.425 ml Balance 32.659 ml 393.425 ml IV Total 32.659 ml 393.425 ml General Appearance: no acute distress HEENT: normocephalic Respiratory: chest wall non-tender, lungs clear Cardiovascular: normal peripheral pulses Abdomen: normal bowel sounds Laboratory Tests 06/28/20 04:00: Activated Partial Thromboplast Time 93H 06/28/20 09:05: Troponin I 0.721H Current Medications Medications (Trade) Dose Ordered Sig/Vanessa Route PRN Reason Start Time Stop Time Status Last Admin Dose Admin Acetaminophen (Tylenol) 500 mg Q4H PRN ORAL Mild Pain (Pain Scale 1-3) 06/26/20 18:45 07/22/20 18:44 06/28/20 09:18 Acetaminophen (Tylenol) 650 mg Q4H PRN ORAL Fever over 100.4 06/26/20 18:45 07/24/20 18:44 Aspirin (ASA) 81 mg DAILY ORAL 06/27/20 09:00 08/09/20 08:59 06/28/20 09:18 Atorvastatin Calcium (Lipitor) 80 mg BEDTIME ORAL 06/26/20 21:00 09/22/20 20:59 06/27/20 20:03 Dextrose/Sodium Chloride 1,000 ml @ 75 mls/hr [id number] IV 06/26/20 18:45 07/22/20 00:00 06/28/20 09:25 Docusate Sodium (Colace) 100 mg BID ORAL 06/27/20 09:00 07/22/20 08:59 06/28/20 09:17 Haloperidol Lactate (Haldol) 5 mg Q6H PRN IM Agitation 06/26/20 18:45 08/10/20 18:44 Heparin Sodium/ Dextrose 500 ml @ 32.659 mls/ hr ADJUST PER PROTOCOL IV 06/26/20 22:15 07/26/20 22:14 06/28/20 03:50 Hydralazine HCl (Apresoline) 25 mg Q4H PRN ORAL bp over 160 syst 06/26/20 18:45 09/19/20 18:44 Meropenem 1 gm/ Sodium Chloride 55 ml @ 110 mls/hr 1100,2300 IVPB 06/27/20 00:00 07/02/20 00:00 06/28/20 11:26 Metoprolol Tartrate (Lopressor) 12.5 mg Q12HR ORAL 06/26/20 21:00 09/22/20 20:59 06/28/20 09:17 Pantoprazole (Protonix) 40 mg DAILY ORAL 06/27/20 09:00 07/24/20 20:29 06/28/20 09:17 Tamsulosin HCl (Flomax) 0.4 mg EVERY 12 HOURS ORAL 06/26/20 21:00 07/23/20 12:44 06/28/20 09:18 Assessment/Plan Assessment/Plan IMPRESSION: 1. Status post fall. 2. History of COVID-19 pneumonia. 3. Scalp laceration. 4. Renal insufficiency. 5. Anemia. 6. Hyperkalemia. DISCUSSION: Currently saturating well on low flow O2. I will follow as metrology manager. Aaron Larry Omar Syed MD Jun 28, 2020 13:08
--- NOTE | 2020-06-28 14:47 | General Progress Note ---
Assessment/Plan Assessment/Plan: (1) Degenerative Joint disease (2) NSTEMI Patient to be continued on Tylenol D/w Dr. Smalls and he concurred. Subjective Date patient seen: Jun 28, 2020 Time patient seen: 02:30 - pm Allergies: Coded Allergies: No Known Allergies (Unverified , 06/21/20) Subjective REVIEW OF SYSTEMS: HEENT: Denies headaches. RESPIRATORY: Denies shortness of breath. Denies cough. CARDIOVASCULAR: Denies chest pain. GASTROINTESTINAL: Denies nausea, vomiting, or diarrhea. EXTREMITIES: Denies pain. CENTRAL NERVOUS SYSTEM: Denies change in speech pattern. HISTORY OF PRESENT ILLNESS: This is a 84 y/o male seen in [facility] [place] Pain has been tolerated on the Tylenol as needed. Objective Last 24 Hour Vital Signs Date Time Temp Pulse Resp B/P (MAP) Pulse Ox O2 Delivery O2 Flow Rate FiO2 06/28/20 12:00 98.1 60 20 105/48 (67) 98 06/28/20 11:40 63 06/28/20 09:17 81 132/63 06/28/20 09:00 Nasal Cannula 2.0 06/28/20 08:08 74 06/28/20 07:52 99.7 81 20 132/63 (86) 94 06/28/20 04:00 89 06/28/20 04:00 97.7 89 19 123/59 (80) 93 06/28/20 00:00 97.9 92 18 152/50 (84) 93 06/28/20 00:00 92 06/27/20 21:39 73 126/42 06/27/20 21:00 Nasal Cannula 2.0 06/27/20 20:00 73 06/27/20 20:00 98.8 73 18 126/42 (70) 93 06/27/20 16:00 98.1 71 19 135/66 (89) 96 06/27/20 15:40 95 Intake and Output 06/27/20 06/28/20 19:00 07:00 Intake Total 32.659 ml 393.425 ml Balance 32.659 ml 393.425 ml IV Total 32.659 ml 393.425 ml Laboratory Tests 06/28/20 04:00: Activated Partial Thromboplast Time 93H 06/28/20 09:05: Troponin I 0.721H Height (Feet): 5 Height (Inches): 6.00 Weight (Pounds): 129 Objective CHEST: Clear to auscultation. CARDIOVASCULAR: Regular rate and rhythm. GASTROINTESTINAL: Soft, nontender, EXTREMITIES: No edema. NEUROLOGIC: No changes. Vishal Brito Jun 28, 2020 14:47
--- NOTE | 2020-06-28 15:55 | Cardiac Electrophysiology PN ---
Assessment/Plan Assessment/Plan 1. Acute non-ST elevation myocardial infarction with troponin of 17. Troponin down to 0.7 and Echo EF 40% DNR. 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 and Lipitor 80 Not a cath candidate in view of confusion, no CP and DNR 2. Transient atrial fib with RVR/SVT. On Lopressor and Change heparin drip to Eliquis 5 bid 3. History of recent COVID. 4. Renal failure and hyperkalemia. Cr 1.3 now 5. Contusion. 6. DNR 7. Dementia. DW RN Subjective Subjective Troponin down to 5.3. Confused in restraints. In SR with short bursts of fib/ SVT. Pulled out his PICC line. On heparin drip. No CP or SOB Objective Last 24 Hour Vital Signs Date Time Temp Pulse Resp B/P (MAP) Pulse Ox O2 Delivery O2 Flow Rate FiO2 06/28/20 12:00 98.1 60 20 105/48 (67) 98 06/28/20 11:40 63 06/28/20 09:17 81 132/63 06/28/20 09:00 Nasal Cannula 2.0 06/28/20 08:08 74 06/28/20 07:52 99.7 81 20 132/63 (86) 94 06/28/20 04:00 89 06/28/20 04:00 97.7 89 19 123/59 (80) 93 06/28/20 00:00 97.9 92 18 152/50 (84) 93 06/28/20 00:00 92 06/27/20 21:39 73 126/42 06/27/20 21:00 Nasal Cannula 2.0 06/27/20 20:00 73 06/27/20 20:00 98.8 73 18 126/42 (70) 93 06/27/20 16:00 98.1 71 19 135/66 (89) 96 Intake and Output 06/27/20 06/28/20 19:00 07:00 Intake Total 32.659 ml 393.425 ml Balance 32.659 ml 393.425 ml IV Total 32.659 ml 393.425 ml Laboratory Tests Test 06/28/20 04:00 06/28/20 09:05 Activated Partial Thromboplast Time 93 SEC (23-33) H Troponin I 0.721 ng/mL (0.000-0.056) Objective HEAD AND NECK: No JVD. LUNGS: Coarse rhonchi. CARDIOVASCULAR: Regular S1 and S2 with no gallop. ABDOMEN: Soft. EXTREMITIES: No pitting edema. Mor Rm MD Jun 28, 2020 15:55
[2020-06-28 16:00] VITALS: BP 138/67
[2020-06-28] MEDS: Eliquis 2.5mg tablet ORAL SCH (17:14)
--- NOTE | 2020-06-28 19:16 | NUR ---
NURSE HAND-OFF REPORT: Important Events on Shift: Patient Status: Diet: Pending Orders: Pending Results/Labs: Pending MD notification: Latest Vital Signs: Temperature 98.0 , Pulse 78 , B/P 138 /67 , Respiratory Rate 20 , O2 SAT 97 , Nasal Cannula, O2 Flow Rate 2.0 . Vital Sign Comment: EKG Rhythm: SR with BBB Rhythm change?: N MD Notified?: Regino Novak MD Response: Latest Anglin Fall Score: 85 Fall Risk: High Risk Safety Measures: Call light Within Reach, Bed Alarm Zone 2, Side Rails Side Rails x2, Bed position Low and Locked. Fall Precautions: Yellow Socks Yellow Gown Door Sign Patient Fall Education Report given to . Pt is awake and stable, no stress noted. Endorsed plan of care.
--- NOTE | 2020-06-28 19:16 | NUR ---
NURSE NOTES: Received hand-off report from ERON [place]. Patient is resting semi-fowlers, alert and oriented x2 (baseline), in stable condition, breathing is unlabored and even, bajwa patent and draining clear, yellow urine, soft restraints restraints on bilaterally, skin under restraints intact and unchanged from baseline, offered fluids, skin clean dry and intact, bed in lowest and locked position, monitoring analyst in place, bed alarm on, prescribed fluids runnings, left forearm 18g IV and left upperarm 18g IV are both intact, patent, clean, no redness, no infiltration noted, and flushing well. No bleeding noted and no reports of bleeding noted either.
[2020-06-28 20:00] VITALS: BP 144/57
--- NOTE | 2020-06-28 20:42 | NUR ---
NURSE NOTES: Notified Dr. Rm regarding SR with bigeminy and BBB. Dr. Rm responded, no new orders at this time and he is aware.
[2020-06-28] MEDS: Atorvastatin 80mg tab ORAL SCH (20:59)
--- NOTE | 2020-06-28 22:30 | General Progress Note ---
Assessment/Plan Problem List: (1) Hyperkalemia ICD Codes: E87.5 - Hyperkalemia SNOMED: 19730573, 734902065 (2) Renal insufficiency ICD Codes: N28.9 - Disorder of kidney and ureter, unspecified SNOMED: 483441031, 562243575 (3) Hyperkalemia ICD Codes: E87.5 - Hyperkalemia SNOMED: 97302983 (4) Leukocytosis ICD Codes: D72.829 - Elevated white blood cell count, unspecified SNOMED: 673566546, 747705215 (5) MARQUIS (acute kidney injury) ICD Codes: N17.9 - Acute kidney failure, unspecified SNOMED: 9198631, 72218591 (6) Renal failure (ARF), acute on chronic ICD Codes: N17.9 - Acute kidney failure, unspecified; N18.9 - Chronic kidney disease, unspecified SNOMED: 590390276 (7) Toxic metabolic encephalopathy ICD Codes: G92 - Toxic encephalopathy SNOMED: 829136480 Assessment/Plan: s/p UT on heparin drip esbl uti trop is going down possible dc in am septic shock t Subjective ROS Limited/Unobtainable: Yes Allergies: Coded Allergies: No Known Allergies (Unverified , 06/21/20) Objective Last 24 Hour Vital Signs Date Time Temp Pulse Resp B/P (MAP) Pulse Ox O2 Delivery O2 Flow Rate FiO2 06/28/20 21:29 99.3 06/28/20 21:02 76 144/57 06/28/20 20:00 76 06/28/20 20:00 100.6 76 16 144/57 (86) 99 06/28/20 16:00 98.0 78 20 138/67 (90) 97 06/28/20 15:51 82 06/28/20 12:00 98.1 60 20 105/48 (67) 98 06/28/20 11:40 63 06/28/20 09:17 81 132/63 06/28/20 09:00 Nasal Cannula 2.0 06/28/20 08:08 74 06/28/20 07:52 99.7 81 20 132/63 (86) 94 06/28/20 04:00 89 06/28/20 04:00 97.7 89 19 123/59 (80) 93 06/28/20 00:00 97.9 92 18 152/50 (84) 93 06/28/20 00:00 92 Intake and Output 06/27/20 06/28/20 19:00 07:00 Intake Total 32.659 ml 393.425 ml Balance 32.659 ml 393.425 ml IV Total 32.659 ml 393.425 ml Laboratory Tests 06/28/20 04:00: Activated Partial Thromboplast Time 93H 06/28/20 09:05: Troponin I 0.721H Height (Feet): 5 Height (Inches): 6.00 Weight (Pounds): 129 Jefferson Novak MD Jun 28, 2020 22:30
[2020-06-29] VITALS (7 sets, daily range): BP systolic 126–161; BP diastolic 58–80
--- NOTE | 2020-06-29 00:05 | Psych Consult Progress Note ---
Psychiatry Progress Note Psychiatry Progress Note Medications Current Medications Medications (Trade) Dose Ordered Sig/Vanessa Route PRN Reason Start Time Stop Time Status Last Admin Dose Admin Acetaminophen (Tylenol) 500 mg Q4H PRN ORAL Mild Pain (Pain Scale 1-3) 06/26/20 18:45 07/22/20 18:44 06/28/20 09:18 Acetaminophen (Tylenol) 650 mg Q4H PRN ORAL Fever over 100.4 06/26/20 18:45 07/24/20 18:44 06/28/20 20:59 Apixaban (Eliquis) 2.5 mg BID ORAL 06/28/20 17:00 09/26/20 16:59 06/28/20 17:14 Aspirin (ASA) 81 mg DAILY ORAL 06/27/20 09:00 08/09/20 08:59 06/28/20 09:18 Atorvastatin Calcium (Lipitor) 80 mg BEDTIME ORAL 06/26/20 21:00 09/22/20 20:59 06/28/20 20:59 Dextrose/Sodium Chloride 1,000 ml @ 75 mls/hr [id number] IV 06/26/20 18:45 07/22/20 00:00 06/28/20 23:48 Docusate Sodium (Colace) 100 mg BID ORAL 06/27/20 09:00 07/22/20 08:59 06/28/20 17:14 Haloperidol Lactate (Haldol) 5 mg Q6H PRN IM Agitation 06/26/20 18:45 08/10/20 18:44 Hydralazine HCl (Apresoline) 25 mg Q4H PRN ORAL bp over 160 syst 06/26/20 18:45 09/19/20 18:44 Meropenem 1 gm/ Sodium Chloride 55 ml @ 110 mls/hr 1100,2300 IVPB 06/27/20 00:00 07/02/20 00:00 06/28/20 23:18 Metoprolol Tartrate (Lopressor) 12.5 mg Q12HR ORAL 06/26/20 21:00 09/22/20 20:59 06/28/20 21:02 Pantoprazole (Protonix) 40 mg DAILY ORAL 06/27/20 09:00 07/24/20 20:29 06/28/20 09:17 Tamsulosin HCl (Flomax) 0.4 mg EVERY 12 HOURS ORAL 06/26/20 21:00 07/23/20 12:44 06/28/20 21:04 Neurological/Psychiatric: Reports: anxiety, depressed, emotional problems Allergies: Coded Allergies: No Known Allergies (Unverified , 06/21/20) Objective Data Height (Feet): 5 Height (Inches): 6.00 Weight (Pounds): 129 General Appearance: no apparent distress Behavior Mannerisms: poor eye contact Mental Status Exam - Suicidal: not present Additional Comments: Awake, disoriented. Mood is agitated. Affect is flat. Thought process is concrete. Thought content, no suicidal or homicidal ideation. Cognition is impaired. Insight and judgment is impaired. Assessment/Plan Jackson I: ASSESSMENT: Acute toxic encephalopathy. PLAN: 1. The patient will benefit from bilateral soft restraints. 2. Continue Haldol IM. Assessment/Plan: ASSESSMENT: Acute toxic encephalopathy. PLAN: 1. The patient will benefit from bilateral soft restraints. 2. Continue Haldol IM. Chacho Lopez MD Jun 29, 2020 00:05
--- NOTE | 2020-06-29 04:12 | NUR ---
NURSE NOTES: Notified Dr. Novak regarding new onset JVD as well as new onset labored breathing, audible rhonchi throughout bilateral lung bases. Patient is placed in high-rose's and oxygen saturation is 97%, respirations 20. Nasal cannula 2.0L is on and patient is still alert and oriented to baseline (x2). Soft bilateral wrist restraints are still on and skin remains unchanged and intact. Offered talk therapy and turned on the television per patient request, changed linen and kept skin clean and dry, fluids were given and patient tolerated well orally.
--- NOTE | 2020-06-29 04:19 | NUR ---
NURSE NOTES: Notified Dr. Rm regarding new onset JVD as well as new onset labored breathing, audible rhonchi throughout bilateral lung bases. Awaiting Dr. Rm's response / orders.
[2020-06-29 04:42] LABS: EOSINOPHILS % (AUTO) 1.8 % (0.0-3.0); HEMATOCRIT 27.6 % (42.0-52.0); HEMOGLOBIN 9.5 G/DL (14.2-18.0); LYMPHOCYTES % (AUTO) 5.6 % (20.0-45.0); MEAN CORPUSCULAR VOLUME 89 FL (80-99); MONOCYTES % (AUTO) 7.8 % (1.0-10.0); NEUTROPHILS % (AUTO) 82.7 % (45.0-75.0); PLATELET COUNT 219 K/UL (150-450); RED CELL DISTRIBUTION WIDTH 11.5 % (11.6-14.8); WHITE BLOOD COUNT 13.2 K/UL (4.8-10.8)
[2020-06-29 04:53] LABS: ALANINE AMINOTRANSFERASE 30 U/L (12-78); ALBUMIN 2.2 G/DL (3.4-5.0); ALBUMIN/GLOBULIN RATIO 0.6 (1.0-2.7); ALKALINE PHOSPHATASE 75 U/L (46-116); ANION GAP 8 mmol/L (5-15); ASPARTATE AMINO TRANSFERASE 30 U/L (15-37); BILIRUBIN,TOTAL 0.6 MG/DL (0.2-1.0); BLOOD UREA NITROGEN 21 mg/dL (7-18); CALCIUM 8.1 MG/DL (8.5-10.1); CARBON DIOXIDE 26 MMOL/L (21-32); CHLORIDE 104 MMOL/L (98-107); CREATININE 1.4 MG/DL (0.55-1.30); PHOSPHORUS 2.6 MG/DL (2.5-4.9); POTASSIUM 4.2 MMOL/L (3.5-5.1); SODIUM 138 MMOL/L (136-145)
--- NOTE | 2020-06-29 07:20 | NUR ---
NURSE HAND-OFF REPORT: Important Events on Shift: calcium 8.1, hgb and hct trending down, wbc trending up, episode of SR with bigeminy with BBB at 21:00, Dr. Rm aware. 100.6 temperature at 21:00 and remained afebrile throughout the rest of the shift. Soft wrist restraints on bilaterally, skin remained unchanged throughout shift, rhonchi and JVD noted and endorsed to [place]. Notified Dr. Rm and Kishore regarding change of condition (JVD and rhonchi). Patient Status: stable, DNR Diet: regular, 1:1 feed Pending Orders: Yes Pending Results/Labs: Pending MD notification: Latest Vital Signs: Temperature 97.9 , Pulse 94 , B/P 159 /78 , Respiratory Rate 18 , O2 SAT 96 , Nasal Cannula, O2 Flow Rate 2.0 . Vital Sign Comment: EKG Rhythm: SR with PACs and BBB Rhythm change?: N MD Notified?: N -Dr. Sujey PENALOZA Response: Latest Anglin Fall Score: 85 Fall Risk: High Risk Safety Measures: Call light Within Reach, Bed Alarm Zone 2, Side Rails Side Rails x2, Bed position Low and Locked. Fall Precautions: Yellow Socks Yellow Gown Door Sign Patient Fall Education Report given to ERON [place].
--- NOTE | 2020-06-29 07:33 | NUR ---
NURSE NOTES: Received pt from [facility]. Pt is sitting on bed, pt has NC 2LMP. Pt has intact iv access MART 18G and LFA 18G are running well. Pt is on continues heart monitoring. pt has Mcleod cath in place is working well. RN helped pt to eat breakfast. all needs attended, bed is locked and is in the lowest position. call light within easy reach. will continue to monitor.
--- NOTE | 2020-06-29 08:21 | NUR ---
NURSE NOTES: Dr Novak is aware pt has wheezing and fever last night and WBC 13.2, ordered stat CXR, noted and carried out. will continue to monitor.
[2020-06-29] MEDS: Metoprolol Tartrate 12.5mg TAB ORAL SCH (08:55)
[2020-06-29] MEDS: Aspirin Baby 81mg ORAL SCH (08:55)
[2020-06-29] MEDS: Eliquis 2.5mg tablet ORAL SCH ×2 (08:55→17:07)
[2020-06-29] MEDS: Docusate 100mg cap ORAL SCH ×2 (08:55→17:07)
[2020-06-29] MEDS: Tamsulosin 0.4mg cap ORAL SCH ×2 (08:55→20:20)
--- NOTE | 2020-06-29 09:27 | NUR ---
CASE MANAGEMENT:REVIEW 06/29/20 SI: NSTEMI. TOXIC MET ENCEPHALOPATHY AC/CHR RENAL FAILURE. E COLI UTI 98.8 77 20 161/80 94% ON2L/NC WBC+13.2 BUN+21 CR+1.4 IS: IV MEROPENEM Q12 ELIQUIS PO BID ASA PO QD PROTONIX PO QD LIPITOR PO QHS LOPRESSOR PO Q12 FLOMAX PO Q12 : TELEMETRY STATUS DCP: FROM [facility]
--- NOTE | 2020-06-29 09:35 | NUR ---
INSURANCE CLINICALS AND REVIEW FAXED TO: [employer] P:[phone] F:[phone] AUTH#[id number]
--- NOTE | 2020-06-29 09:53 | NUR ---
RADIOLOGY DEPT., CHEST X-RAY DONE.-P.DYE
[2020-06-29] MEDS: Meropenem 1 GM in NS 55 ML IVPB SCH ×2 (10:00→23:45)
--- NOTE | 2020-06-29 10:39 | NUR ---
NURSE NOTES: Dr An visited pt and is aware pt has wheezing, ordered to stop IV fluid, noted and carried out. will continue to monitor.
--- NOTE | 2020-06-29 11:06 | Diagnostic Imaging Report ---
Procedure: XRAY Chest 1v Reason for study: Reason For Exam: SOB Comparison films: 06/23/2020. FINDINGS: A single one view chest is obtained. Vascularity is normal. There is worsening of bilateral infiltrates. Cardiac and mediastinal silhouette are within normal limits. Small left effusion noted. The bony thorax appear unremarkable. IMPRESSION: Worsening of left lung infiltrates and new small left effusion.
--- NOTE | 2020-06-29 11:38 | Cardiac Electrophysiology PN ---
Assessment/Plan Assessment/Plan 1. Acute non-ST elevation myocardial infarction with troponin of 17. Troponin down to 0.7 and Echo EF 40% DNR. 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 Still DNR 2. Transient atrial fib with RVR/SVT. On Coreg and Eliquis 5 bid 3. CHF with EF 40%.Change Lopressor to Coreg 3.125 bid and Add Lasix 40 iv bid, Will Add low dose Lisinopril and watch renal Fx 3. History of recent COVID. 4. Renal failure and hyperkalemia. Cr 1.3 now 5. Contusion. 6. DNR 7. Dementia. DW RN and Dr Up Subjective Subjective Troponin down to 5.3. More alert. In SR with short bursts of fib/SVT. On heparin drip. Objective Last 24 Hour Vital Signs Date Time Temp Pulse Resp B/P (MAP) Pulse Ox O2 Delivery O2 Flow Rate FiO2 06/29/20 10:33 150/74 (99) 06/29/20 09:00 Nasal Cannula 2.0 06/29/20 08:55 77 161/80 06/29/20 08:55 161/80 06/29/20 08:49 98.8 77 20 161/80 (107) 94 06/29/20 08:02 102 06/29/20 04:00 97.9 94 18 159/78 (105) 96 06/29/20 04:00 94 06/29/20 00:00 98.9 71 17 129/58 (81) 98 06/29/20 00:00 71 06/28/20 21:29 99.3 06/28/20 21:02 76 144/57 06/28/20 21:00 Nasal Cannula 2.0 06/28/20 20:00 76 06/28/20 20:00 100.6 76 16 144/57 (86) 99 06/28/20 16:00 98.0 78 20 138/67 (90) 97 06/28/20 15:51 82 06/28/20 12:00 98.1 60 20 105/48 (67) 98 06/28/20 11:40 63 Intake and Output 06/28/20 06/29/20 19:00 07:00 Intake Total 1501.272 ml 275 ml Output Total 450 ml Balance 1051.272 ml 275 ml Intake Oral 360 ml 200 ml IV Total 1141.272 ml 75 ml Output Urine Total 450 ml Laboratory Tests Test 06/29/20 04:22 White Blood Count 13.2 K/UL (4.8-10.8) H Red Blood Count 3.10 M/UL (4.70-6.10) L Hemoglobin 9.5 G/DL (14.2-18.0) L Hematocrit 27.6 % (42.0-52.0) L Mean Corpuscular Volume 89 FL (80-99) Mean Corpuscular Hemoglobin 30.8 PG (27.0-31.0) Mean Corpuscular Hemoglobin Concent 34.6 G/DL (32.0-36.0) Red Cell Distribution Width 11.5 % (11.6-14.8) L Platelet Count 219 K/UL (150-450) Mean Platelet Volume 6.8 FL (6.5-10.1) Neutrophils (%) (Auto) 82.7 % (45.0-75.0) H Lymphocytes (%) (Auto) 5.6 % (20.0-45.0) L Monocytes (%) (Auto) 7.8 % (1.0-10.0) Eosinophils (%) (Auto) 1.8 % (0.0-3.0) Basophils (%) (Auto) 2.0 % (0.0-2.0) Activated Partial Thromboplast Time 34 SEC (23-33) H Sodium Level 138 MMOL/L (136-145) Potassium Level 4.2 MMOL/L (3.5-5.1) Chloride Level 104 MMOL/L (98-107) Carbon Dioxide Level 26 MMOL/L (21-32) Anion Gap 8 mmol/L (5-15) Blood Urea Nitrogen 21 mg/dL (7-18) H Creatinine 1.4 MG/DL (0.55-1.30) H Estimat Glomerular Filtration Rate 58.3 mL/min (>60) Glucose Level 113 MG/DL (74-106) H Calcium Level 8.1 MG/DL (8.5-10.1) L Phosphorus Level 2.6 MG/DL (2.5-4.9) Magnesium Level 2.1 MG/DL (1.8-2.4) Total Bilirubin 0.6 MG/DL (0.2-1.0) Aspartate Amino Transf (AST/SGOT) 30 U/L (15-37) Alanine Aminotransferase (ALT/SGPT) 30 U/L (12-78) Alkaline Phosphatase 75 U/L (46-116) Total Protein 6.0 G/DL (6.4-8.2) L Albumin 2.2 G/DL (3.4-5.0) L Globulin 3.8 g/dL Albumin/Globulin Ratio 0.6 (1.0-2.7) L Objective HEAD AND NECK: Positive JVD. LUNGS: Coarse rhonchi. CARDIOVASCULAR: Regular S1 and S2 with no gallop. ABDOMEN: Soft. EXTREMITIES: No pitting edema. Mor Rm MD Jun 29, 2020 11:38
--- NOTE | 2020-06-29 11:45 | Pulmonology Progress Note ---
Subjective ROS Limited/Unobtainable: Yes Interval Events: None new Constitutional: Denies: fever HEENT: Repors: no symptoms Respiratory: Reports: no symptoms Cardiovascular: Reports: no symptoms Gastrointestinal/Abdominal: Reports: no symptoms Allergies: Coded Allergies: No Known Allergies (Unverified , 06/21/20) Objective Last 24 Hour Vital Signs Date Time Temp Pulse Resp B/P (MAP) Pulse Ox O2 Delivery O2 Flow Rate FiO2 06/29/20 10:33 150/74 (99) 06/29/20 09:00 Nasal Cannula 2.0 06/29/20 08:55 77 161/80 06/29/20 08:55 161/80 06/29/20 08:49 98.8 77 20 161/80 (107) 94 06/29/20 08:02 102 06/29/20 04:00 97.9 94 18 159/78 (105) 96 06/29/20 04:00 94 06/29/20 00:00 98.9 71 17 129/58 (81) 98 06/29/20 00:00 71 06/28/20 21:29 99.3 06/28/20 21:02 76 144/57 06/28/20 21:00 Nasal Cannula 2.0 06/28/20 20:00 76 06/28/20 20:00 100.6 76 16 144/57 (86) 99 06/28/20 16:00 98.0 78 20 138/67 (90) 97 06/28/20 15:51 82 06/28/20 12:00 98.1 60 20 105/48 (67) 98 Intake and Output 06/28/20 06/29/20 19:00 07:00 Intake Total 1501.272 ml 275 ml Output Total 450 ml Balance 1051.272 ml 275 ml Intake Oral 360 ml 200 ml IV Total 1141.272 ml 75 ml Output Urine Total 450 ml General Appearance: no acute distress HEENT: normocephalic Respiratory: chest wall non-tender, lungs clear Cardiovascular: normal peripheral pulses Abdomen: normal bowel sounds Laboratory Tests 06/29/20 04:22: White Blood Count 13.2H, Red Blood Count 3.10L, Hemoglobin 9.5L, Hematocrit 27.6L, Mean Corpuscular Volume 89, Mean Corpuscular Hemoglobin 30.8, Mean Corpuscular Hemoglobin Concent 34.6, Red Cell Distribution Width 11.5L, Platelet Count 219, Mean Platelet Volume 6.8, Neutrophils (%) (Auto) 82.7H, Lymphocytes (%) (Auto) 5.6L, Monocytes (%) (Auto) 7.8, Eosinophils (%) (Auto) 1.8, Basophils (%) (Auto) 2.0, Activated Partial Thromboplast Time 34H, Sodium Level 138, Potassium Level 4.2, Chloride Level 104, Carbon Dioxide Level 26, Anion Gap 8, Blood Urea Nitrogen 21H, Creatinine 1.4H, Estimat Glomerular Filtration Rate 58.3, Glucose Level 113H, Calcium Level 8.1L, Phosphorus Level 2.6, Magnesium Level 2.1, Total Bilirubin 0.6, Aspartate Amino Transf (AST/SGOT ) 30, Alanine Aminotransferase (ALT/SGPT) 30, Alkaline Phosphatase 75, Total Protein 6.0L, Albumin 2.2L, Globulin 3.8, Albumin/Globulin Ratio 0.6L Current Medications Medications (Trade) Dose Ordered Sig/Vanessa Route PRN Reason Start Time Stop Time Status Last Admin Dose Admin Acetaminophen (Tylenol) 500 mg Q4H PRN ORAL Mild Pain (Pain Scale 1-3) 06/26/20 18:45 07/22/20 18:44 06/28/20 09:18 Acetaminophen (Tylenol) 650 mg Q4H PRN ORAL Fever over 100.4 06/26/20 18:45 07/24/20 18:44 06/28/20 20:59 Apixaban (Eliquis) 2.5 mg BID ORAL 06/28/20 17:00 09/26/20 16:59 06/29/20 08:55 Aspirin (ASA) 81 mg DAILY ORAL 06/27/20 09:00 08/09/20 08:59 06/29/20 08:55 Atorvastatin Calcium (Lipitor) 80 mg BEDTIME ORAL 06/26/20 21:00 09/22/20 20:59 06/28/20 20:59 Carvedilol (Coreg) 3.125 mg EVERY 12 HOURS ORAL 06/29/20 21:00 07/29/20 20:59 UNV Docusate Sodium (Colace) 100 mg BID ORAL 06/27/20 09:00 07/22/20 08:59 06/29/20 08:55 Furosemide (Lasix) 40 mg EVERY 12 HOURS IV 06/29/20 21:00 07/29/20 20:59 UNV Haloperidol Lactate (Haldol) 5 mg Q6H PRN IM Agitation 06/26/20 18:45 08/10/20 18:44 Hydralazine HCl (Apresoline) 25 mg Q4H PRN ORAL bp over 160 syst 06/26/20 18:45 09/19/20 18:44 06/29/20 08:55 Lisinopril (ZestriL) 10 mg DAILY ORAL 06/30/20 09:00 07/30/20 08:59 UNV Meropenem 1 gm/ Sodium Chloride 55 ml @ 110 mls/hr 1100,2300 IVPB 06/27/20 00:00 07/02/20 00:00 06/29/20 10:00 Pantoprazole (Protonix) 40 mg DAILY ORAL 06/27/20 09:00 07/24/20 20:29 06/29/20 08:55 Spironolactone (Aldactone) 25 mg DAILY ORAL 06/30/20 09:00 07/30/20 08:59 UNV Tamsulosin HCl (Flomax) 0.4 mg EVERY 12 HOURS ORAL 06/26/20 21:00 07/23/20 12:44 06/29/20 08:55 Assessment/Plan Assessment/Plan IMPRESSION: 1. Status post fall. 2. History of COVID-19 pneumonia. 3. Scalp laceration. 4. Renal insufficiency. 5. Anemia. 6. Hypoxemia DISCUSSION: Will dc IV fluids Appears congested Discussed with cardiology; added Lasix Ross An M.D. Ross An MD Jun 29, 2020 11:45
--- NOTE | 2020-06-29 12:09 | NUR ---
NURSE NOTES: Pis calm, no sign or symptoms of agitation and pulling out iv, Dr Lopez is aware and ordered to D/C restraint, noted and carried out. will continue to monitor.
--- NOTE | 2020-06-29 12:16 | Infectious Diseases Prog Note ---
Assessment/Plan Assessment/Plan IMPRESSION: Fever UTI with E. coli ESBL Pneumonia/ Acute renal failure, Chronic kidney disease, Acute DE, Anemia. History of recent COVID19 RECOMMENDATION: Continue Meropenem Sputum culture Case was D/W RN Subjective ROS Limited/Unobtainable: Yes Constitutional: Reports: fever, other - Xe=966.6 last night Neurologic: Reports: confusion, other - on restraint Allergies: Coded Allergies: No Known Allergies (Unverified , 06/21/20) Objective Last 24 Hour Vital Signs Date Time Temp Pulse Resp B/P (MAP) Pulse Ox O2 Delivery O2 Flow Rate FiO2 06/29/20 12:00 98.2 75 19 126/60 (82) 94 06/29/20 10:33 150/74 (99) 06/29/20 09:00 Nasal Cannula 2.0 06/29/20 08:55 77 161/80 06/29/20 08:55 161/80 06/29/20 08:49 98.8 77 20 161/80 (107) 94 06/29/20 08:02 102 06/29/20 04:00 97.9 94 18 159/78 (105) 96 06/29/20 04:00 94 06/29/20 00:00 98.9 71 17 129/58 (81) 98 06/29/20 00:00 71 06/28/20 21:29 99.3 06/28/20 21:02 76 144/57 06/28/20 21:00 Nasal Cannula 2.0 06/28/20 20:00 76 06/28/20 20:00 100.6 76 16 144/57 (86) 99 06/28/20 16:00 98.0 78 20 138/67 (90) 97 06/28/20 15:51 82 Height (Feet): 5 Height (Inches): 6.00 Weight (Pounds): 130 HEENT: mucous membranes moist Respiratory/Chest: crackles/rales, other - oxygen by nasal cannula Cardiovascular: normal rate Abdomen: soft, non tender Extremities: no edema Neurologic/Psychiatric: alert, responsive, disoriented Laboratory Tests Test 06/29/20 04:22 White Blood Count 13.2 K/UL (4.8-10.8) H Red Blood Count 3.10 M/UL (4.70-6.10) L Hemoglobin 9.5 G/DL (14.2-18.0) L Hematocrit 27.6 % (42.0-52.0) L Mean Corpuscular Volume 89 FL (80-99) Mean Corpuscular Hemoglobin 30.8 PG (27.0-31.0) Mean Corpuscular Hemoglobin Concent 34.6 G/DL (32.0-36.0) Red Cell Distribution Width 11.5 % (11.6-14.8) L Platelet Count 219 K/UL (150-450) Mean Platelet Volume 6.8 FL (6.5-10.1) Neutrophils (%) (Auto) 82.7 % (45.0-75.0) H Lymphocytes (%) (Auto) 5.6 % (20.0-45.0) L Monocytes (%) (Auto) 7.8 % (1.0-10.0) Eosinophils (%) (Auto) 1.8 % (0.0-3.0) Basophils (%) (Auto) 2.0 % (0.0-2.0) Activated Partial Thromboplast Time 34 SEC (23-33) H Sodium Level 138 MMOL/L (136-145) Potassium Level 4.2 MMOL/L (3.5-5.1) Chloride Level 104 MMOL/L (98-107) Carbon Dioxide Level 26 MMOL/L (21-32) Anion Gap 8 mmol/L (5-15) Blood Urea Nitrogen 21 mg/dL (7-18) H Creatinine 1.4 MG/DL (0.55-1.30) H Estimat Glomerular Filtration Rate 58.3 mL/min (>60) Glucose Level 113 MG/DL (74-106) H Calcium Level 8.1 MG/DL (8.5-10.1) L Phosphorus Level 2.6 MG/DL (2.5-4.9) Magnesium Level 2.1 MG/DL (1.8-2.4) Total Bilirubin 0.6 MG/DL (0.2-1.0) Aspartate Amino Transf (AST/SGOT) 30 U/L (15-37) Alanine Aminotransferase (ALT/SGPT) 30 U/L (12-78) Alkaline Phosphatase 75 U/L (46-116) Total Protein 6.0 G/DL (6.4-8.2) L Albumin 2.2 G/DL (3.4-5.0) L Globulin 3.8 g/dL Albumin/Globulin Ratio 0.6 (1.0-2.7) L Current Medications Medications (Trade) Dose Ordered Sig/Vanessa Route PRN Reason Start Time Stop Time Status Last Admin Dose Admin Acetaminophen (Tylenol) 500 mg Q4H PRN ORAL Mild Pain (Pain Scale 1-3) 06/26/20 18:45 07/22/20 18:44 06/28/20 09:18 Acetaminophen (Tylenol) 650 mg Q4H PRN ORAL Fever over 100.4 06/26/20 18:45 07/24/20 18:44 06/28/20 20:59 Apixaban (Eliquis) 2.5 mg BID ORAL 06/28/20 17:00 09/26/20 16:59 06/29/20 08:55 Aspirin (ASA) 81 mg DAILY ORAL 06/27/20 09:00 08/09/20 08:59 06/29/20 08:55 Atorvastatin Calcium (Lipitor) 80 mg BEDTIME ORAL 06/26/20 21:00 09/22/20 20:59 06/28/20 20:59 Carvedilol (Coreg) 3.125 mg EVERY 12 HOURS ORAL 06/29/20 21:00 07/29/20 20:59 Docusate Sodium (Colace) 100 mg BID ORAL 06/27/20 09:00 07/22/20 08:59 06/29/20 08:55 Furosemide (Lasix) 40 mg EVERY 12 HOURS IV 06/29/20 21:00 07/29/20 20:59 Haloperidol Lactate (Haldol) 5 mg Q6H PRN IM Agitation 06/26/20 18:45 08/10/20 18:44 Hydralazine HCl (Apresoline) 25 mg Q4H PRN ORAL bp over 160 syst 06/26/20 18:45 09/19/20 18:44 06/29/20 08:55 Lisinopril (ZestriL) 10 mg DAILY ORAL 06/30/20 09:00 07/30/20 08:59 Meropenem 1 gm/ Sodium Chloride 55 ml @ 110 mls/hr 1100,2300 IVPB 06/27/20 00:00 07/02/20 00:00 06/29/20 10:00 Pantoprazole (Protonix) 40 mg DAILY ORAL 06/27/20 09:00 07/24/20 20:29 06/29/20 08:55 Spironolactone (Aldactone) 25 mg DAILY ORAL 06/30/20 09:00 07/30/20 08:59 Tamsulosin HCl (Flomax) 0.4 mg EVERY 12 HOURS ORAL 06/26/20 21:00 07/23/20 12:44 06/29/20 08:55 Shravan Rodriguez MD Jun 29, 2020 12:16
--- NOTE | 2020-06-29 12:20 | Nephrology Progress Note ---
Assessment/Plan Problem List: (1) Leukocytosis (2) Toxic metabolic encephalopathy (3) MARQUIS (acute kidney injury) (4) Renal failure (ARF), acute on chronic (5) Hyperkalemia (6) Hyperkalemia (7) Cardiomyopathy Assessment: Ej Fx 40% (8) Non-ST elevation UT (NSTEMI) Assessment Acute on chronic renal failure Patient presented with hyperkalemia History of hypertension however presents with borderline low blood pressure Anemia Falls Plan June 29: Discussed with cardiology and pulmonary, will stop IV fluid, start IV Lasix, Lopressor is changed to Coreg. Chest x-ray reviewed. Worsening left lung infiltrate. June 28: No labs drawn today. Clinically stable. Will check labs tomorrow. June 27: Labs reviewed. Renal parameters stable. Continue current care. Patient DNR. June 26: Patient is now in [facility]. Patient is DNR. Last serum creatinine 1.8 done yesterday. Continue current care. Will check renal parameters tomorrow. June 25: Patient in ICU. Hemodynamically stable. Serum creatinine 1.8. Continue per current management. Continue to monitor renal parameters. Patient DNR. June 24: Patient on his way to ICU due to elevated troponin from almost normal up to 17. Labs reviewed. Ejection fraction around 40%. Continue per cardiology. Continue to monitor renal parameters. June 23: Patient agitated. Pulled the Mcleod out. Will discontinue Mcleod. Labs reviewed. Developed leukocytosis. Will give empirical 1 dose of Rocephin pending ID evaluation. Continue to monitor renal parameters. Continue hydration. Monitor blood pressure. Monitor renal parameters. Per orders. Discussed with RN. Repeat chest x-ray ordered. Subjective ROS Limited/Unobtainable: No Constitutional: Reports: malaise, weakness, other - Tachypneic Objective Objective Last 24 Hour Vital Signs Date Time Temp Pulse Resp B/P (MAP) Pulse Ox O2 Delivery O2 Flow Rate FiO2 06/29/20 12:00 98.2 75 19 126/60 (82) 94 06/29/20 10:33 150/74 (99) 06/29/20 09:00 Nasal Cannula 2.0 06/29/20 08:55 77 161/80 06/29/20 08:55 161/80 06/29/20 08:49 98.8 77 20 161/80 (107) 94 06/29/20 08:02 102 06/29/20 04:00 97.9 94 18 159/78 (105) 96 06/29/20 04:00 94 06/29/20 00:00 98.9 71 17 129/58 (81) 98 06/29/20 00:00 71 06/28/20 21:29 99.3 06/28/20 21:02 76 144/57 06/28/20 21:00 Nasal Cannula 2.0 06/28/20 20:00 76 06/28/20 20:00 100.6 76 16 144/57 (86) 99 06/28/20 16:00 98.0 78 20 138/67 (90) 97 06/28/20 15:51 82 Intake and Output 06/28/20 06/29/20 19:00 07:00 Intake Total 1501.272 ml 275 ml Output Total 450 ml Balance 1051.272 ml 275 ml Intake Oral 360 ml 200 ml IV Total 1141.272 ml 75 ml Output Urine Total 450 ml Current Medications Medications (Trade) Dose Ordered Sig/Vanessa Route PRN Reason Start Time Stop Time Status Last Admin Dose Admin Acetaminophen (Tylenol) 500 mg Q4H PRN ORAL Mild Pain (Pain Scale 1-3) 06/26/20 18:45 07/22/20 18:44 06/28/20 09:18 Acetaminophen (Tylenol) 650 mg Q4H PRN ORAL Fever over 100.4 06/26/20 18:45 07/24/20 18:44 06/28/20 20:59 Apixaban (Eliquis) 2.5 mg BID ORAL 06/28/20 17:00 09/26/20 16:59 06/29/20 08:55 Aspirin (ASA) 81 mg DAILY ORAL 06/27/20 09:00 08/09/20 08:59 06/29/20 08:55 Atorvastatin Calcium (Lipitor) 80 mg BEDTIME ORAL 06/26/20 21:00 09/22/20 20:59 06/28/20 20:59 Carvedilol (Coreg) 3.125 mg EVERY 12 HOURS ORAL 06/29/20 21:00 07/29/20 20:59 Docusate Sodium (Colace) 100 mg BID ORAL 06/27/20 09:00 07/22/20 08:59 06/29/20 08:55 Furosemide (Lasix) 40 mg EVERY 12 HOURS IV 06/29/20 21:00 07/29/20 20:59 Haloperidol Lactate (Haldol) 5 mg Q6H PRN IM Agitation 06/26/20 18:45 08/10/20 18:44 Hydralazine HCl (Apresoline) 25 mg Q4H PRN ORAL bp over 160 syst 06/26/20 18:45 09/19/20 18:44 06/29/20 08:55 Lisinopril (ZestriL) 10 mg DAILY ORAL 06/30/20 09:00 07/30/20 08:59 Meropenem 1 gm/ Sodium Chloride 55 ml @ 110 mls/hr 1100,2300 IVPB 06/27/20 00:00 07/02/20 00:00 06/29/20 10:00 Pantoprazole (Protonix) 40 mg DAILY ORAL 06/27/20 09:00 07/24/20 20:29 06/29/20 08:55 Spironolactone (Aldactone) 25 mg DAILY ORAL 06/30/20 09:00 07/30/20 08:59 Tamsulosin HCl (Flomax) 0.4 mg EVERY 12 HOURS ORAL 06/26/20 21:00 07/23/20 12:44 06/29/20 08:55 Laboratory Tests 06/29/20 04:22: White Blood Count 13.2H, Red Blood Count 3.10L, Hemoglobin 9.5L, Hematocrit 27.6L, Mean Corpuscular Volume 89, Mean Corpuscular Hemoglobin 30.8, Mean Corpuscular Hemoglobin Concent 34.6, Red Cell Distribution Width 11.5L, Platelet Count 219, Mean Platelet Volume 6.8, Neutrophils (%) (Auto) 82.7H, Lymphocytes (%) (Auto) 5.6L, Monocytes (%) (Auto) 7.8, Eosinophils (%) (Auto) 1.8, Basophils (%) (Auto) 2.0, Activated Partial Thromboplast Time 34H, Sodium Level 138, Potassium Level 4.2, Chloride Level 104, Carbon Dioxide Level 26, Anion Gap 8, Blood Urea Nitrogen 21H, Creatinine 1.4H, Estimat Glomerular Filtration Rate 58.3, Glucose Level 113H, Calcium Level 8.1L, Phosphorus Level 2.6, Magnesium Level 2.1, Total Bilirubin 0.6, Aspartate Amino Transf (AST/SGOT ) 30, Alanine Aminotransferase (ALT/SGPT) 30, Alkaline Phosphatase 75, Total Protein 6.0L, Albumin 2.2L, Globulin 3.8, Albumin/Globulin Ratio 0.6L Height (Feet): 5 Height (Inches): 6.00 Weight (Pounds): 130 General Appearance: mild distress Cardiovascular: other - Variable Respiratory/Chest: decreased breath sounds, rhonchi - bilaterally, other - Tachypneic Abdomen: distended Objective No change Sage Up MD Jun 29, 2020 12:20
[2020-06-29] MEDS ORDERED: D5 1/2NS 1000ml IV ONE ×2 (14:14→14:16)
[2020-06-29] MEDS ORDERED: Tubing IV Secondary IV ONE (14:16)
--- NOTE | 2020-06-29 14:30 | General Progress Note ---
Assessment/Plan Assessment/Plan: (1) Degenerative Joint disease (2) NSTEMI Patient to be continued on Tylenol D/w Dr. Smalls and he concurred. Subjective Date patient seen: Jun 29, 2020 Time patient seen: 01:00 - pm Allergies: Coded Allergies: No Known Allergies (Unverified , 06/21/20) Subjective REVIEW OF SYSTEMS: HEENT: Denies headaches. RESPIRATORY: Denies shortness of breath. Denies cough. CARDIOVASCULAR: Denies chest pain. GASTROINTESTINAL: Denies nausea, vomiting, or diarrhea. EXTREMITIES: Denies pain. CENTRAL NERVOUS SYSTEM: Denies change in speech pattern. HISTORY OF PRESENT ILLNESS: This is a 84 y/o male seen in [facility] [place]. No signs of pain or distress. No new complaints at this time. Objective Last 24 Hour Vital Signs Date Time Temp Pulse Resp B/P (MAP) Pulse Ox O2 Delivery O2 Flow Rate FiO2 06/29/20 12:00 98.2 75 19 126/60 (82) 94 06/29/20 11:36 82 06/29/20 10:33 150/74 (99) 06/29/20 09:00 Nasal Cannula 2.0 06/29/20 08:55 77 161/80 06/29/20 08:55 161/80 06/29/20 08:49 98.8 77 20 161/80 (107) 94 06/29/20 08:02 102 06/29/20 04:00 97.9 94 18 159/78 (105) 96 06/29/20 04:00 94 06/29/20 00:00 98.9 71 17 129/58 (81) 98 06/29/20 00:00 71 06/28/20 21:29 99.3 06/28/20 21:02 76 144/57 06/28/20 21:00 Nasal Cannula 2.0 06/28/20 20:00 76 06/28/20 20:00 100.6 76 16 144/57 (86) 99 06/28/20 16:00 98.0 78 20 138/67 (90) 97 06/28/20 15:51 82 Intake and Output 06/28/20 06/29/20 19:00 07:00 Intake Total 1501.272 ml 275 ml Output Total 450 ml Balance 1051.272 ml 275 ml Intake Oral 360 ml 200 ml IV Total 1141.272 ml 75 ml Output Urine Total 450 ml Laboratory Tests 06/29/20 04:22: White Blood Count 13.2H, Red Blood Count 3.10L, Hemoglobin 9.5L, Hematocrit 27.6L, Mean Corpuscular Volume 89, Mean Corpuscular Hemoglobin 30.8, Mean Corpuscular Hemoglobin Concent 34.6, Red Cell Distribution Width 11.5L, Platelet Count 219, Mean Platelet Volume 6.8, Neutrophils (%) (Auto) 82.7H, Lymphocytes (%) (Auto) 5.6L, Monocytes (%) (Auto) 7.8, Eosinophils (%) (Auto) 1.8, Basophils (%) (Auto) 2.0, Activated Partial Thromboplast Time 34H, Sodium Level 138, Potassium Level 4.2, Chloride Level 104, Carbon Dioxide Level 26, Anion Gap 8, Blood Urea Nitrogen 21H, Creatinine 1.4H, Estimat Glomerular Filtration Rate 58.3, Glucose Level 113H, Calcium Level 8.1L, Phosphorus Level 2.6, Magnesium Level 2.1, Total Bilirubin 0.6, Aspartate Amino Transf (AST/SGOT ) 30, Alanine Aminotransferase (ALT/SGPT) 30, Alkaline Phosphatase 75, Total Protein 6.0L, Albumin 2.2L, Globulin 3.8, Albumin/Globulin Ratio 0.6L Height (Feet): 5 Height (Inches): 6.00 Weight (Pounds): 130 Objective CHEST: Clear to auscultation. CARDIOVASCULAR: Regular rate and rhythm. GASTROINTESTINAL: Soft, nontender, EXTREMITIES: No edema. NEUROLOGIC: No changes. Vishal Brito Jun 29, 2020 14:30
--- NOTE | 2020-06-29 16:41 | NUR ---
*-*DISCHARGE PLANNING*-* PATIENT HAS BEEN ACCEPTED BACK TO: [facility] P: [phone] ROOM# HOUSE [facility] ~~~~~~~~~DC OVER WEEKEND~~~~~~~~~~~~~~~~
--- NOTE | 2020-06-29 19:23 | NUR ---
NURSE NOTES: Received hand-off report from ERON Grove. Patient is resting in high-rose's position, stable condition, NC on 2L, IV sites intact and patent, alert and oriented x2, able to communicate needs, gave 50mL water, skin is clean, dry and intact, breathing is even, unlabored and patient is not in acute distress. Rhonchi is still present and will administer prescribed diuretic shortly. Bed is in lowest and locked position, bed alarm on, call light within reach.
--- NOTE | 2020-06-29 19:23 | NUR ---
NURSE HAND-OFF REPORT: Important Events on Shift: Patient Status: Diet: Pending Orders: Pending Results/Labs: Pending MD notification: Latest Vital Signs: Temperature 97.7 , Pulse 69 , B/P 139 /58 , Respiratory Rate 20 , O2 SAT 96 , Nasal Cannula, O2 Flow Rate 2.0 . Vital Sign Comment: EKG Rhythm: SR with BBB Rhythm change?: N MD Notified?: N -Dr. Sujey PENALOZA Response: Latest Anglin Fall Score: 85 Fall Risk: High Risk Safety Measures: Call light Within Reach, Bed Alarm Zone 2, Side Rails Side Rails x2, Bed position Low and Locked. Fall Precautions: Yellow Socks Yellow Gown Door Sign Patient Fall Education Report given to . Pt is awake and stable, no stress noted. Endorsed plan of care.
[2020-06-29] MEDS: Atorvastatin 80mg tab ORAL SCH (20:21)
--- NOTE | 2020-06-29 20:55 | NUR ---
NURSE NOTES: sushil Rivero notified me to an episode of PST, [address] Rm regarding patient condition and rhythm strip update (resting in bed and in stable condition). Awaiting Dr. Rm response / orders.
--- NOTE | 2020-06-29 23:28 | Psych Consult Progress Note ---
Psychiatry Progress Note Psychiatry Progress Note Subjective the pt is better episodes of agitation. Medications Current Medications Medications (Trade) Dose Ordered Sig/Vanessa Route PRN Reason Start Time Stop Time Status Last Admin Dose Admin Acetaminophen (Tylenol) 500 mg Q4H PRN ORAL Mild Pain (Pain Scale 1-3) 06/26/20 18:45 07/22/20 18:44 06/28/20 09:18 Acetaminophen (Tylenol) 650 mg Q4H PRN ORAL Fever over 100.4 06/26/20 18:45 07/24/20 18:44 06/28/20 20:59 Apixaban (Eliquis) 2.5 mg BID ORAL 06/28/20 17:00 09/26/20 16:59 06/29/20 17:07 Aspirin (ASA) 81 mg DAILY ORAL 06/27/20 09:00 08/09/20 08:59 06/29/20 08:55 Atorvastatin Calcium (Lipitor) 80 mg BEDTIME ORAL 06/26/20 21:00 09/22/20 20:59 06/29/20 20:21 Carvedilol (Coreg) 3.125 mg EVERY 12 HOURS ORAL 06/29/20 21:00 07/29/20 20:59 06/29/20 20:27 Docusate Sodium (Colace) 100 mg BID ORAL 06/27/20 09:00 07/22/20 08:59 06/29/20 08:55 Furosemide (Lasix) 40 mg EVERY 12 HOURS IV 06/29/20 21:00 07/29/20 20:59 06/29/20 20:21 Haloperidol Lactate (Haldol) 5 mg Q6H PRN IM Agitation 06/26/20 18:45 08/10/20 18:44 Hydralazine HCl (Apresoline) 25 mg Q4H PRN ORAL bp over 160 syst 06/26/20 18:45 09/19/20 18:44 06/29/20 08:55 Lisinopril (ZestriL) 10 mg DAILY ORAL 06/30/20 09:00 07/30/20 08:59 Meropenem 1 gm/ Sodium Chloride 55 ml @ 110 mls/hr 1100,2300 IVPB 06/27/20 00:00 07/02/20 00:00 06/29/20 10:00 Pantoprazole (Protonix) 40 mg DAILY ORAL 06/27/20 09:00 07/24/20 20:29 06/29/20 08:55 Spironolactone (Aldactone) 25 mg DAILY ORAL 06/30/20 09:00 07/30/20 08:59 Tamsulosin HCl (Flomax) 0.4 mg EVERY 12 HOURS ORAL 06/26/20 21:00 07/23/20 12:44 06/29/20 20:20 Neurological/Psychiatric: Reports: anxiety, depressed, emotional problems Allergies: Coded Allergies: No Known Allergies (Unverified , 06/21/20) Objective Data Height (Feet): 5 Height (Inches): 6.00 Weight (Pounds): 126 General Appearance: mild distress Behavior Mannerisms: poor eye contact Mental Status Exam - Suicidal: not present Additional Comments: Awake, disoriented. Mood is agitated. Affect is flat. Thought process is concrete. Thought content, no suicidal or homicidal ideation. Cognition is impaired. Insight and judgment is impaired. Chacho Lopez MD Jun 29, 2020 23:28
[2020-06-30] VITALS: BP 134/66
[2020-06-30 04:00] VITALS: BP 106/52
[2020-06-30 06:58] LABS: ALANINE AMINOTRANSFERASE 37 U/L (12-78); ALBUMIN 2.3 G/DL (3.4-5.0); ALBUMIN/GLOBULIN RATIO 0.6 (1.0-2.7); ALKALINE PHOSPHATASE 76 U/L (46-116); ANION GAP 11 mmol/L (5-15); ASPARTATE AMINO TRANSFERASE 36 U/L (15-37); BILIRUBIN,TOTAL 0.6 MG/DL (0.2-1.0); BLOOD UREA NITROGEN 28 mg/dL (7-18); CALCIUM 8.5 MG/DL (8.5-10.1); CARBON DIOXIDE 25 MMOL/L (21-32); CHLORIDE 106 MMOL/L (98-107); CREATININE 1.4 MG/DL (0.55-1.30); PHOSPHORUS 2.4 MG/DL (2.5-4.9); POTASSIUM 4.2 MMOL/L (3.5-5.1); SODIUM 142 MMOL/L (136-145)
[2020-06-30 07:20] LABS: HEMATOCRIT 27.7 % (42.0-52.0); HEMOGLOBIN 9.6 G/DL (14.2-18.0); MEAN CORPUSCULAR VOLUME 88 FL (80-99); PLATELET COUNT 265 K/UL (150-450); RED BLOOD COUNT 3.13 M/UL (4.70-6.10); RED CELL DISTRIBUTION WIDTH 11.1 % (11.6-14.8); WHITE BLOOD COUNT 14.6 K/UL (4.8-10.8)
--- NOTE | 2020-06-30 07:33 | NUR ---
NURSE NOTES: Received report from ERON Cullen. Patient AAO x1. Follows commands. Denies pain. No acute distress. Breathing regular, unlabored on NC. IV flushed patent, no redness. Mcleod draining to gravity. Fall and skin precautions in place.
--- NOTE | 2020-06-30 07:43 | NUR ---
NURSE HAND-OFF REPORT: Important Events on Shift: PST and HR at 20:42, plan of care endorsed, patient removed left forearm IV, troponin trending down 0.424 and endorsed to the receiving nurse. Patient Status: stable, full code Diet: regular, crush meds, 1:1 feed Pending Orders: Pending Results/Labs: Pending MD notification: Latest Vital Signs: Temperature 99.0 , Pulse 65 , B/P 106 /52 , Respiratory Rate 20 , O2 SAT 95 , Nasal Cannula, O2 Flow Rate 2.0 . Vital Sign Comment: EKG Rhythm: SR with BBB Rhythm change?: N MD Notified?: Regino Rm MD Response: Latest Anglin Fall Score: 85 Fall Risk: High Risk Safety Measures: Call light Within Reach, Bed Alarm Zone 2, Side Rails Side Rails x2, Bed position Low and Locked. Fall Precautions: Yellow Socks Yellow Gown Door Sign Patient Fall Education Report given to ERON Turner. Addendum: 06/30/20 at 0751 by Alyse Giraldo RN DNR, not full code.
[2020-06-30 08:00] VITALS: BP 122/47
--- NOTE | 2020-06-30 08:47 | Pulmonology Progress Note ---
Subjective ROS Limited/Unobtainable: No Interval Events: Off IV fluids Constitutional: Reports: fever, other - Om=108.6 last night HEENT: Repors: no symptoms Respiratory: Reports: no symptoms Cardiovascular: Reports: no symptoms Gastrointestinal/Abdominal: Reports: no symptoms Allergies: Coded Allergies: No Known Allergies (Unverified , 06/21/20) Objective Last 24 Hour Vital Signs Date Time Temp Pulse Resp B/P (MAP) Pulse Ox O2 Delivery O2 Flow Rate FiO2 06/30/20 08:30 Nasal Cannula 2.0 06/30/20 08:00 100.0 70 20 122/47 (72) 95 06/30/20 04:00 99.0 65 20 106/52 (70) 95 06/30/20 04:00 60 06/30/20 00:00 98.7 78 20 134/66 (88) 97 06/30/20 00:00 78 06/29/20 21:00 Nasal Cannula 2.0 06/29/20 20:42 129 06/29/20 20:27 81 143/76 06/29/20 20:00 68 06/29/20 20:00 99.3 68 20 143/72 (95) 96 06/29/20 16:00 97.7 69 20 139/58 (85) 96 06/29/20 15:54 79 06/29/20 12:00 98.2 75 19 126/60 (82) 94 06/29/20 11:36 82 06/29/20 10:33 150/74 (99) 06/29/20 09:00 Nasal Cannula 2.0 06/29/20 08:55 77 161/80 06/29/20 08:55 161/80 06/29/20 08:49 98.8 77 20 161/80 (107) 94 Intake and Output 06/29/20 06/30/20 19:00 07:00 Intake Total 905 ml 50 ml Output Total 350 ml 2200 ml Balance 555 ml -2150 ml Intake Oral 625 ml 50 ml IV Total 280 ml Output Urine Total 350 ml 2200 ml # Bowel Movements 3 1 General Appearance: no acute distress HEENT: normocephalic Respiratory: chest wall non-tender, lungs clear Cardiovascular: normal peripheral pulses Abdomen: normal bowel sounds Laboratory Tests 06/30/20 04:00: White Blood Count 14.6H, Red Blood Count 3.13L, Hemoglobin 9.6L, Hematocrit 27.7L, Mean Corpuscular Volume 88, Mean Corpuscular Hemoglobin 30.8, Mean Corpuscular Hemoglobin Concent 34.8, Red Cell Distribution Width 11.1L, Platelet Count 265, Mean Platelet Volume 6.4L, Neutrophils (%) (Auto) , Lymphocytes (%) (Auto) , Monocytes (%) (Auto) , Eosinophils (%) (Auto) , Basophils (%) (Auto) , Neutrophils % (Manual) [Pending], Lymphocytes % (Manual) [Pending], Platelet Estimate [Pending], Platelet Morphology [Pending], Sodium Level 142, Potassium Level 4.2, Chloride Level 106, Carbon Dioxide Level 25, Anion Gap 11, Blood Urea Nitrogen 28H, Creatinine 1.4H, Estimat Glomerular Filtration Rate 58.3, Glucose Level 104, Calcium Level 8.5, Phosphorus Level 2.4L, Magnesium Level 2.1, Total Bilirubin 0.6, Aspartate Amino Transf (AST/SGOT ) 36, Alanine Aminotransferase (ALT/SGPT) 37, Alkaline Phosphatase 76, Troponin I 0.424H, Pro-B-Type Natriuretic Peptide 73135E, Total Protein 6.0L, Albumin 2.3L, Globulin 3.7, Albumin/Globulin Ratio 0.6L Current Medications Medications (Trade) Dose Ordered Sig/Vanessa Route PRN Reason Start Time Stop Time Status Last Admin Dose Admin Acetaminophen (Tylenol) 500 mg Q4H PRN ORAL Mild Pain (Pain Scale 1-3) 06/26/20 18:45 07/22/20 18:44 06/28/20 09:18 Acetaminophen (Tylenol) 650 mg Q4H PRN ORAL Fever over 100.4 06/26/20 18:45 07/24/20 18:44 06/28/20 20:59 Apixaban (Eliquis) 2.5 mg BID ORAL 06/28/20 17:00 09/26/20 16:59 06/29/20 17:07 Aspirin (ASA) 81 mg DAILY ORAL 06/27/20 09:00 08/09/20 08:59 06/29/20 08:55 Atorvastatin Calcium (Lipitor) 80 mg BEDTIME ORAL 06/26/20 21:00 09/22/20 20:59 8/21/20 20:21 Carvedilol (Coreg) 3.125 mg EVERY 12 HOURS ORAL 06/29/20 21:00 07/29/20 20:59 06/29/20 20:27 Docusate Sodium (Colace) 100 mg BID ORAL 06/27/20 09:00 07/22/20 08:59 06/29/20 08:55 Furosemide (Lasix) 40 mg EVERY 12 HOURS IV 06/29/20 21:00 07/29/20 20:59 06/29/20 20:21 Haloperidol Lactate (Haldol) 5 mg Q6H PRN IM Agitation 06/26/20 18:45 08/10/20 18:44 Hydralazine HCl (Apresoline) 25 mg Q4H PRN ORAL bp over 160 syst 06/26/20 18:45 09/19/20 18:44 06/29/20 08:55 Lisinopril (ZestriL) 10 mg DAILY ORAL 06/30/20 09:00 07/30/20 08:59 Meropenem 1 gm/ Sodium Chloride 55 ml @ 110 mls/hr 1100,2300 IVPB 06/27/20 00:00 07/02/20 00:00 06/29/20 23:45 Pantoprazole (Protonix) 40 mg DAILY ORAL 06/27/20 09:00 07/24/20 20:29 06/29/20 08:55 Spironolactone (Aldactone) 25 mg DAILY ORAL 06/30/20 09:00 07/30/20 08:59 Tamsulosin HCl (Flomax) 0.4 mg EVERY 12 HOURS ORAL 06/26/20 21:00 07/23/20 12:44 06/29/20 20:20 Assessment/Plan Assessment/Plan IMPRESSION: 1. Status post fall. 2. History of COVID-19 pneumonia. 3. Scalp laceration. 4. Renal insufficiency. 5. Anemia. 6. Hypoxemia DISCUSSION: Off V fluids Saturating better; on nasal o2 Discussed with cardiology; Aaron Larry Omar Syed MD Jun 30, 2020 08:46
[2020-06-30] MEDS: Aspirin Baby 81mg ORAL SCH (09:14)
[2020-06-30] MEDS: Docusate 100mg cap ORAL SCH ×2 (09:15→17:03)
[2020-06-30] MEDS: Tamsulosin 0.4mg cap ORAL SCH ×2 (09:17→22:36)
[2020-06-30] MEDS: Eliquis 2.5mg tablet ORAL SCH ×2 (09:17→17:04)
[2020-06-30] MEDS: Spironolactone 25mg tab ORAL SCH (09:18)
[2020-06-30] MEDS: Lisinopril 10mg tab ORAL SCH (09:18)
[2020-06-30] MEDS: Meropenem 1 GM in NS 55 ML IVPB SCH ×2 (11:19→22:38)
--- NOTE | 2020-06-30 11:55 | NUR ---
NURSE NOTES: Reached out to MD John to discuss need for swallow eval, diet order change. Pt. not tolerating diet d/t aspiration risk. terminal gauger supervisor Dago khan. Awaiting response from .
[2020-06-30 11:58] VITALS: BP 108/51
--- NOTE | 2020-06-30 12:33 | NUR ---
NURSE NOTES: Received TORB for swallow eval from MD Novak.
--- NOTE | 2020-06-30 13:46 | Nephrology Progress Note ---
Assessment/Plan Problem List: (1) Leukocytosis (2) Toxic metabolic encephalopathy (3) MARQUIS (acute kidney injury) (4) Renal failure (ARF), acute on chronic (5) Hyperkalemia (6) Hyperkalemia (7) Cardiomyopathy Assessment: Ej Fx 40% (8) Non-ST elevation MS (NSTEMI) Assessment Acute on chronic renal failure Patient presented with hyperkalemia History of hypertension however presents with borderline low blood pressure Anemia Falls Plan June 30: Clinically doing better. Labs reviewed. Electrolytes normal. Continue treatment for pneumonia. Continue to optimize cardiac status. Discussed with copy preparer. June 29: Discussed with cardiology and pulmonary, will stop IV fluid, start IV Lasix, Lopressor is changed to Coreg. Chest x-ray reviewed. Worsening left lung infiltrate. June 28: No labs drawn today. Clinically stable. Will check labs tomorrow. June 27: Labs reviewed. Renal parameters stable. Continue current care. Patient DNR. June 26: Patient is now in [facility]. Patient is DNR. Last serum creatinine 1.8 done yesterday. Continue current care. Will check renal parameters tomorrow. June 25: Patient in ICU. Hemodynamically stable. Serum creatinine 1.8. Continue per current management. Continue to monitor renal parameters. Patient DNR. June 24: Patient on his way to ICU due to elevated troponin from almost normal up to 17. Labs reviewed. Ejection fraction around 40%. Continue per cardiology. Continue to monitor renal parameters. June 23: Patient agitated. Pulled the Mcleod out. Will discontinue Mcleod. Labs reviewed. Developed leukocytosis. Will give empirical 1 dose of Rocephin pending ID evaluation. Continue to monitor renal parameters. Continue hydration. Monitor blood pressure. Monitor renal parameters. Per orders. Discussed with RN. Repeat chest x-ray ordered. Subjective ROS Limited/Unobtainable: No Constitutional: Reports: malaise, weakness Objective Objective Last 24 Hour Vital Signs Date Time Temp Pulse Resp B/P (MAP) Pulse Ox O2 Delivery O2 Flow Rate FiO2 06/30/20 12:00 84 06/30/20 11:58 97.9 92 22 108/51 (70) 99 06/30/20 09:18 122/47 06/30/20 09:17 70 122/47 06/30/20 08:30 Nasal Cannula 2.0 06/30/20 08:00 70 06/30/20 08:00 100.0 70 20 122/47 (72) 95 06/30/20 04:00 99.0 65 20 106/52 (70) 95 06/30/20 04:00 60 06/30/20 00:00 98.7 78 20 134/66 (88) 97 06/30/20 00:00 78 06/29/20 21:00 Nasal Cannula 2.0 06/29/20 20:42 129 06/29/20 20:27 81 143/76 06/29/20 20:00 68 06/29/20 20:00 99.3 68 20 143/72 (95) 96 06/29/20 16:00 97.7 69 20 139/58 (85) 96 06/29/20 15:54 79 Intake and Output 06/29/20 06/30/20 19:00 07:00 Intake Total 905 ml 50 ml Output Total 350 ml 2200 ml Balance 555 ml -2150 ml Intake Oral 625 ml 50 ml IV Total 280 ml Output Urine Total 350 ml 2200 ml # Bowel Movements 3 1 Current Medications Medications (Trade) Dose Ordered Sig/Vanessa Route PRN Reason Start Time Stop Time Status Last Admin Dose Admin Acetaminophen (Tylenol) 500 mg Q4H PRN ORAL Mild Pain (Pain Scale 1-3) 06/26/20 18:45 07/22/20 18:44 06/28/20 09:18 Acetaminophen (Tylenol) 650 mg Q4H PRN ORAL Fever over 100.4 06/26/20 18:45 07/24/20 18:44 06/28/20 20:59 Apixaban (Eliquis) 2.5 mg BID ORAL 06/28/20 17:00 09/26/20 16:59 06/30/20 09:17 Aspirin (ASA) 81 mg DAILY ORAL 06/27/20 09:00 08/09/20 08:59 06/30/20 09:14 Atorvastatin Calcium (Lipitor) 80 mg BEDTIME ORAL 06/26/20 21:00 09/22/20 20:59 06/29/20 20:21 Carvedilol (Coreg) 3.125 mg EVERY 12 HOURS ORAL 06/29/20 21:00 07/29/20 20:59 06/30/20 09:17 Docusate Sodium (Colace) 100 mg BID ORAL 06/27/20 09:00 07/22/20 08:59 06/30/20 09:15 Furosemide (Lasix) 40 mg EVERY 12 HOURS IV 06/29/20 21:00 07/29/20 20:59 06/30/20 09:14 Haloperidol Lactate (Haldol) 5 mg Q6H PRN IM Agitation 06/26/20 18:45 08/10/20 18:44 Hydralazine HCl (Apresoline) 25 mg Q4H PRN ORAL bp over 160 syst 06/26/20 18:45 09/19/20 18:44 06/29/20 08:55 Lisinopril (ZestriL) 10 mg DAILY ORAL 06/30/20 09:00 07/30/20 08:59 06/30/20 09:18 Meropenem 1 gm/ Sodium Chloride 55 ml @ 110 mls/hr 1100,2300 IVPB 06/27/20 00:00 07/02/20 00:00 06/30/20 11:19 Pantoprazole (Protonix) 40 mg DAILY ORAL 06/27/20 09:00 07/24/20 20:29 06/30/20 09:14 Spironolactone (Aldactone) 25 mg DAILY ORAL 06/30/20 09:00 07/30/20 08:59 06/30/20 09:18 Tamsulosin HCl (Flomax) 0.4 mg EVERY 12 HOURS ORAL 06/26/20 21:00 07/23/20 12:44 06/30/20 09:17 Laboratory Tests 06/30/20 04:00: White Blood Count 14.6H, Red Blood Count 3.13L, Hemoglobin 9.6L, Hematocrit 27.7L, Mean Corpuscular Volume 88, Mean Corpuscular Hemoglobin 30.8, Mean Corpuscular Hemoglobin Concent 34.8, Red Cell Distribution Width 11.1L, Platelet Count 265, Mean Platelet Volume 6.4L, Neutrophils (%) (Auto) , Lymphocytes (%) (Auto) , Monocytes (%) (Auto) , Eosinophils (%) (Auto) , Basophils (%) (Auto) , Differential Total Cells Counted 100, Neutrophils % ( Manual) 89H, Lymphocytes % (Manual) 5L, Monocytes % (Manual) 6, Eosinophils % ( Manual) 0, Basophils % (Manual) 0, Band Neutrophils 0, Platelet Estimate Adequate, Platelet Morphology Normal, Red Blood Cell Morphology Normal, Sodium Level 142, Potassium Level 4.2, Chloride Level 106, Carbon Dioxide Level 25, Anion Gap 11, Blood Urea Nitrogen 28H, Creatinine 1.4H, Estimat Glomerular Filtration Rate 58.3, Glucose Level 104, Calcium Level 8.5, Phosphorus Level 2.4L, Magnesium Level 2.1, Total Bilirubin 0.6, Aspartate Amino Transf (AST/SGOT ) 36, Alanine Aminotransferase (ALT/SGPT) 37, Alkaline Phosphatase 76, Troponin I 0.424H, Pro-B-Type Natriuretic Peptide 32368R, Total Protein 6.0L, Albumin 2.3L, Globulin 3.7, Albumin/Globulin Ratio 0.6L Height (Feet): 5 Height (Inches): 6.00 Weight (Pounds): 124 General Appearance: no apparent distress Cardiovascular: tachycardia Respiratory/Chest: decreased breath sounds, rhonchi - bilaterally Objective No change Sage Up MD Jun 30, 2020 13:46
--- NOTE | 2020-06-30 13:53 | Cardiac Electrophysiology PN ---
Assessment/Plan Assessment/Plan 1. Acute non-ST elevation myocardial infarction with troponin of 17. Troponin down to 0.4 and Echo EF 40% DNR. 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 Still DNR 2. Transient atrial fib with RVR/SVT. On Coreg and Eliquis 5 bid 3. CHF with EF 40%.On Coreg 3.125 bid, Lasix 40 iv bid, Lisinopril and Aldactone 25 daily 3. History of recent COVID. 4. Renal failure and hyperkalemia. Cr 1.3 now 5. Contusion. 6. DNR 7. Dementia. 8. ROGELIO PNA on iv Abx DW RN and Dr Up Subjective Subjective Troponin down to 5.3. More alert. In SR with short bursts of fib/SVT. On heparin drip. WBC rising and Left CXR getting worse Objective Last 24 Hour Vital Signs Date Time Temp Pulse Resp B/P (MAP) Pulse Ox O2 Delivery O2 Flow Rate FiO2 06/30/20 12:00 84 06/30/20 11:58 97.9 92 22 108/51 (70) 99 06/30/20 09:18 122/47 06/30/20 09:17 70 122/47 06/30/20 08:30 Nasal Cannula 2.0 06/30/20 08:00 70 06/30/20 08:00 100.0 70 20 122/47 (72) 95 06/30/20 04:00 99.0 65 20 106/52 (70) 95 06/30/20 04:00 60 06/30/20 00:00 98.7 78 20 134/66 (88) 97 06/30/20 00:00 78 06/29/20 21:00 Nasal Cannula 2.0 06/29/20 20:42 129 06/29/20 20:27 81 143/76 06/29/20 20:00 68 06/29/20 20:00 99.3 68 20 143/72 (95) 96 06/29/20 16:00 97.7 69 20 139/58 (85) 96 06/29/20 15:54 79 Intake and Output 06/29/20 06/30/20 19:00 07:00 Intake Total 905 ml 50 ml Output Total 350 ml 2200 ml Balance 555 ml -2150 ml Intake Oral 625 ml 50 ml IV Total 280 ml Output Urine Total 350 ml 2200 ml # Bowel Movements 3 1 Laboratory Tests Test 06/30/20 04:00 White Blood Count 14.6 K/UL (4.8-10.8) H Red Blood Count 3.13 M/UL (4.70-6.10) L Hemoglobin 9.6 G/DL (14.2-18.0) L Hematocrit 27.7 % (42.0-52.0) L Mean Corpuscular Volume 88 FL (80-99) Mean Corpuscular Hemoglobin 30.8 PG (27.0-31.0) Mean Corpuscular Hemoglobin Concent 34.8 G/DL (32.0-36.0) Red Cell Distribution Width 11.1 % (11.6-14.8) L Platelet Count 265 K/UL (150-450) Mean Platelet Volume 6.4 FL (6.5-10.1) L Neutrophils (%) (Auto) % (45.0-75.0) Lymphocytes (%) (Auto) % (20.0-45.0) Monocytes (%) (Auto) % (1.0-10.0) Eosinophils (%) (Auto) % (0.0-3.0) Basophils (%) (Auto) % (0.0-2.0) Differential Total Cells Counted 100 Neutrophils % (Manual) 89 % (45-75) H Lymphocytes % (Manual) 5 % (20-45) L Monocytes % (Manual) 6 % (1-10) Eosinophils % (Manual) 0 % (0-3) Basophils % (Manual) 0 % (0-2) Band Neutrophils 0 % (0-8) Platelet Estimate Adequate Platelet Morphology Normal Red Blood Cell Morphology Normal Sodium Level 142 MMOL/L (136-145) Potassium Level 4.2 MMOL/L (3.5-5.1) Chloride Level 106 MMOL/L (98-107) Carbon Dioxide Level 25 MMOL/L (21-32) Anion Gap 11 mmol/L (5-15) Blood Urea Nitrogen 28 mg/dL (7-18) H Creatinine 1.4 MG/DL (0.55-1.30) H Estimat Glomerular Filtration Rate 58.3 mL/min (>60) Glucose Level 104 MG/DL (74-106) Calcium Level 8.5 MG/DL (8.5-10.1) Phosphorus Level 2.4 MG/DL (2.5-4.9) L Magnesium Level 2.1 MG/DL (1.8-2.4) Total Bilirubin 0.6 MG/DL (0.2-1.0) Aspartate Amino Transf (AST/SGOT) 36 U/L (15-37) Alanine Aminotransferase (ALT/SGPT) 37 U/L (12-78) Alkaline Phosphatase 76 U/L (46-116) Troponin I 0.424 ng/mL (0.000-0.056) Pro-B-Type Natriuretic Peptide 28153 pg/mL (0-125) H Total Protein 6.0 G/DL (6.4-8.2) L Albumin 2.3 G/DL (3.4-5.0) L Globulin 3.7 g/dL Albumin/Globulin Ratio 0.6 (1.0-2.7) L Objective HEAD AND NECK: Positive JVD. LUNGS: Coarse rhonchi. CARDIOVASCULAR: Regular S1 and S2 with no gallop. ABDOMEN: Soft. EXTREMITIES: No pitting edema. Mor Rm MD Jun 30, 2020 13:53
--- NOTE | 2020-06-30 15:38 | NUR ---
CASE MANAGEMENT:REVIEW 06/30/20 SI: NSTEMI. TOXIC MET ENCEPHALOPATHY AC/CHR RENAL FAILURE. E COLI UTI 100.0 70 20 122/47 95% ON 2L/NC WBC+14.6 BUN+28 CR+1.4 TROPONIN(+)0.424 IS: IV MEROPENEM Q12 IV LASIX Q12 LISINOPRIL PO QD ALDACTONE PO QD COREG PO Q12 ELIQUIS PO BID ASA PO QD PROTONIX PO QD LIPITOR PO QHS : TELEMETRY STATUS DCP: FROM [facility]
[2020-06-30 16:00] VITALS: BP 114/50
--- NOTE | 2020-06-30 19:13 | NUR ---
NURSE HAND-OFF REPORT: Important Events on Shift: SR BBB with PSVT, MD Rm aware. Patient Status: Stable, AAO x1. On room air. Mcleod draining to gravity. Diet: Regular, puree moist, nectar thick liquids Pending Orders: ST evaluation Pending Results/Labs:N/A Pending MD notification:N/A Latest Vital Signs: Temperature 99.1 , Pulse 87 , B/P 114 /50 , Respiratory Rate 20 , O2 SAT 99 , Nasal Cannula, O2 Flow Rate 2.0 . Vital Sign Comment: N/A EKG Rhythm: SR with BBB with PSVT 5 beats Rhythm change?: Regino PENALOZA Notified?: Y -MD Sujey PENALOZA Response: Latest Anglin Fall Score: 85 Fall Risk: High Risk Safety Measures: Call light Within Reach, Bed Alarm Zone 2, Side Rails Side Rails x3, Bed position Low and Locked. Fall Precautions: Yellow Socks Yellow Gown Door Sign Patient Fall Education Report given to ERON Will.
--- NOTE | 2020-06-30 19:39 | NUR ---
NURSE NOTES: Received report from ERON Head. Patient awake alert and oriented x1 to 2. No SOB. Bed at lowest position locked with siderails up. Patient on fall precautions. Call light and bedside table with in reach. case monitor intact. Will continue with plan of care.
[2020-06-30 20:00] VITALS: BP 131/57
--- NOTE | 2020-06-30 21:44 | General Progress Note ---
Assessment/Plan Problem List: (1) Hyperkalemia ICD Codes: E87.5 - Hyperkalemia SNOMED: 03978776, 027938736 (2) Renal insufficiency ICD Codes: N28.9 - Disorder of kidney and ureter, unspecified SNOMED: 726244725, 686084482 (3) Hyperkalemia ICD Codes: E87.5 - Hyperkalemia SNOMED: 97355181 (4) Leukocytosis ICD Codes: D72.829 - Elevated white blood cell count, unspecified SNOMED: 644265358, 258105252 (5) MARQUIS (acute kidney injury) ICD Codes: N17.9 - Acute kidney failure, unspecified SNOMED: 0312021, 95379158 (6) Renal failure (ARF), acute on chronic ICD Codes: N17.9 - Acute kidney failure, unspecified; N18.9 - Chronic kidney disease, unspecified SNOMED: 213659560 (7) Toxic metabolic encephalopathy ICD Codes: G92 - Toxic encephalopathy SNOMED: 309293962 Assessment/Plan: s/p MO on heparin drip esbl uti trop is going down on lasix iv for chf management dnr no cath per dr perez septic shock t Subjective ROS Limited/Unobtainable: Yes Allergies: Coded Allergies: No Known Allergies (Unverified , 06/21/20) Objective Last 24 Hour Vital Signs Date Time Temp Pulse Resp B/P (MAP) Pulse Ox O2 Delivery O2 Flow Rate FiO2 06/30/20 16:00 87 06/30/20 16:00 99.1 78 20 114/50 (71) 99 06/30/20 12:00 84 06/30/20 11:58 97.9 92 22 108/51 (70) 99 06/30/20 09:18 122/47 06/30/20 09:17 70 122/47 06/30/20 08:30 Nasal Cannula 2.0 06/30/20 08:00 70 06/30/20 08:00 100.0 70 20 122/47 (72) 95 06/30/20 04:00 99.0 65 20 106/52 (70) 95 06/30/20 04:00 60 06/30/20 00:00 98.7 78 20 134/66 (88) 97 06/30/20 00:00 78 Intake and Output 06/29/20 06/30/20 19:00 07:00 Intake Total 905 ml 50 ml Output Total 350 ml 2200 ml Balance 555 ml -2150 ml Intake Oral 625 ml 50 ml IV Total 280 ml Output Urine Total 350 ml 2200 ml # Bowel Movements 3 1 Laboratory Tests 06/30/20 04:00: White Blood Count 14.6H, Red Blood Count 3.13L, Hemoglobin 9.6L, Hematocrit 27.7L, Mean Corpuscular Volume 88, Mean Corpuscular Hemoglobin 30.8, Mean Corpuscular Hemoglobin Concent 34.8, Red Cell Distribution Width 11.1L, Platelet Count 265, Mean Platelet Volume 6.4L, Neutrophils (%) (Auto) , Lymphocytes (%) (Auto) , Monocytes (%) (Auto) , Eosinophils (%) (Auto) , Basophils (%) (Auto) , Differential Total Cells Counted 100, Neutrophils % ( Manual) 89H, Lymphocytes % (Manual) 5L, Monocytes % (Manual) 6, Eosinophils % ( Manual) 0, Basophils % (Manual) 0, Band Neutrophils 0, Platelet Estimate Adequate, Platelet Morphology Normal, Red Blood Cell Morphology Normal, Sodium Level 142, Potassium Level 4.2, Chloride Level 106, Carbon Dioxide Level 25, Anion Gap 11, Blood Urea Nitrogen 28H, Creatinine 1.4H, Estimat Glomerular Filtration Rate 58.3, Glucose Level 104, Calcium Level 8.5, Phosphorus Level 2.4L, Magnesium Level 2.1, Total Bilirubin 0.6, Aspartate Amino Transf (AST/SGOT ) 36, Alanine Aminotransferase (ALT/SGPT) 37, Alkaline Phosphatase 76, Troponin I 0.424H, Pro-B-Type Natriuretic Peptide 61136Q, Total Protein 6.0L, Albumin 2.3L, Globulin 3.7, Albumin/Globulin Ratio 0.6L Height (Feet): 5 Height (Inches): 6.00 Weight (Pounds): 124 Jefferson Novak MD Jun 30, 2020 21:44
[2020-06-30] MEDS: Atorvastatin 80mg tab ORAL SCH (22:36)
[2020-07-01] VITALS: BP 104/54
[2020-07-01 04:00] VITALS: BP 116/46
--- NOTE | 2020-07-01 07:20 | NUR ---
NURSE NOTES: Report received from Christianne LITTLEJOHN. Pt in bed, complaining of being slightly cold. yellow gown and scoks in place. Bed low and locked. No complaint of pain at this time. Whiteboard updated and additional blanket placed on pt. Addendum: 07/01/20 at 1910 by Taya Anderson RN Nicolette Faust RN
--- NOTE | 2020-07-01 07:42 | NUR ---
NURSE HAND-OFF REPORT: Important Events on Shift:No unusual events Patient Status: [Stable, Neuro remains at baseline] Diet: [Puree moist with thickened liquids] Pending Orders: [None] Pending Results/Labs:[See orders] Pending MD notification:[No] Latest Vital Signs: Temperature 97.9 , Pulse 65 , B/P 116 /46 , Respiratory Rate 20 , O2 SAT 92 , Nasal Cannula, O2 Flow Rate 2.0 . Vital Sign Comment: [] EKG Rhythm: S/R w/ BBB Rhythm change?: N MD Notified?: N MD Response: Latest Anglin Fall Score: 85 Fall Risk: High Risk Safety Measures: Call light Within Reach, Bed Alarm Zone 2, Side Rails Side Rails x3, Bed position Low and Locked. Fall Precautions: Yellow Socks Yellow Gown Door Sign Patient Fall Education Report given to [ERON Bain].
[2020-07-01 08:00] VITALS: BP 124/53
--- NOTE | 2020-07-01 10:31 | Pulmonology Progress Note ---
Subjective ROS Limited/Unobtainable: Yes Interval Events: Off IV fluids Constitutional: Reports: fever, other - Vj=498.6 last night HEENT: Repors: no symptoms Respiratory: Reports: no symptoms Cardiovascular: Reports: no symptoms Gastrointestinal/Abdominal: Reports: no symptoms Allergies: Coded Allergies: No Known Allergies (Unverified , 06/21/20) Objective Last 24 Hour Vital Signs Date Time Temp Pulse Resp B/P (MAP) Pulse Ox O2 Delivery O2 Flow Rate FiO2 07/01/20 08:00 97.5 66 20 124/53 (76) 100 07/01/20 04:00 72 07/01/20 04:00 97.9 65 20 116/46 (69) 92 07/01/20 00:00 99.0 62 24 104/54 (71) 94 07/01/20 00:00 83 06/30/20 22:37 87 131/57 06/30/20 21:00 Nasal Cannula 2.0 06/30/20 20:00 70 06/30/20 20:00 99.1 87 24 131/57 (81) 94 06/30/20 16:00 87 06/30/20 16:00 99.1 78 20 114/50 (71) 99 06/30/20 12:00 84 06/30/20 11:58 97.9 92 22 108/51 (70) 99 Intake and Output 06/30/20 07/01/20 19:00 07:00 Intake Total 360 ml 200 ml Output Total 1300 ml 700 ml Balance -940 ml -500 ml Intake Oral 360 ml 200 ml Output Urine Total 1300 ml 700 ml # Bowel Movements 1 General Appearance: no acute distress HEENT: normocephalic Respiratory: chest wall non-tender, lungs clear Cardiovascular: normal peripheral pulses Abdomen: normal bowel sounds Current Medications Medications (Trade) Dose Ordered Sig/Vanessa Route PRN Reason Start Time Stop Time Status Last Admin Dose Admin Acetaminophen (Tylenol) 500 mg Q4H PRN ORAL Mild Pain (Pain Scale 1-3) 06/26/20 18:45 07/22/20 18:44 06/28/20 09:18 Acetaminophen (Tylenol) 650 mg Q4H PRN ORAL Fever over 100.4 06/26/20 18:45 07/24/20 18:44 06/28/20 20:59 Apixaban (Eliquis) 2.5 mg BID ORAL 06/28/20 17:00 09/26/20 16:59 06/30/20 17:04 Aspirin (ASA) 81 mg DAILY ORAL 06/27/20 09:00 08/09/20 08:59 06/30/20 09:14 Atorvastatin Calcium (Lipitor) 80 mg BEDTIME ORAL 06/26/20 21:00 09/22/20 20:59 06/30/20 22:36 Carvedilol (Coreg) 3.125 mg EVERY 12 HOURS ORAL 06/29/20 21:00 07/29/20 20:59 06/30/20 22:37 Docusate Sodium (Colace) 100 mg TWICE A DAY ORAL 07/01/20 10:00 07/31/20 09:59 Doxazosin Mesylate (Cardura) 1 mg DAILY ORAL 07/01/20 09:30 07/31/20 09:29 Furosemide (Lasix) 40 mg EVERY 12 HOURS IV 06/29/20 21:00 07/29/20 20:59 06/30/20 22:34 Haloperidol Lactate (Haldol) 5 mg Q6H PRN IM Agitation 06/26/20 18:45 08/10/20 18:44 Hydralazine HCl (Apresoline) 25 mg Q4H PRN ORAL bp over 160 syst 06/26/20 18:45 09/19/20 18:44 06/29/20 08:55 Lisinopril (ZestriL) 10 mg DAILY ORAL 06/30/20 09:00 07/30/20 08:59 06/30/20 09:18 Meropenem 1 gm/ Sodium Chloride 55 ml @ 110 mls/hr 1100,2300 IVPB 07/01/20 11:00 07/06/20 11:00 Pantoprazole (Protonix) 40 mg DAILY IVP 07/01/20 10:00 07/31/20 09:59 Spironolactone (Aldactone) 25 mg DAILY ORAL 06/30/20 09:00 07/30/20 08:59 06/30/20 09:18 Assessment/Plan Assessment/Plan IMPRESSION: 1. Status post fall. 2. History of COVID-19 pneumonia. 3. Scalp laceration. 4. Renal insufficiency. 5. Anemia. 6. Hypoxemia DISCUSSION: Off V fluids Saturating better; on nasal o2 Discussed with cardiology; Aaron Larry Omar Syed MD Jul 01, 2020 10:31
[2020-07-01] MEDS: Docusate 100mg/10ml Liq ORAL SCH ×2 (10:55→18:19)
[2020-07-01] MEDS: Pantoprazole Inj IVP SCH (10:55)
[2020-07-01] MEDS: Eliquis 2.5mg tablet ORAL SCH ×2 (10:57→18:19)
[2020-07-01] MEDS: Aspirin Baby 81mg ORAL SCH (10:57)
[2020-07-01] MEDS: Lisinopril 10mg tab ORAL SCH (10:57)
[2020-07-01] MEDS: Spironolactone 25mg tab ORAL SCH (10:57)
[2020-07-01] MEDS: Meropenem 1 GM in NS 55 ML IVPB SCH ×2 (11:07→22:45)
[2020-07-01] MEDS: Doxazosin 4mg tab ORAL SCH (11:07)
[2020-07-01 12:00] VITALS: BP 128/56
--- NOTE | 2020-07-01 12:33 | General Progress Note ---
Assessment/Plan Assessment/Plan: (1) Degenerative Joint disease (2) NSTEMI Patient to be continued on Tylenol D/w Dr. Smalls and he concurred. Subjective Date patient seen: Jul 01, 2020 Time patient seen: 11:30 - am Allergies: Coded Allergies: No Known Allergies (Unverified , 06/21/20) Subjective REVIEW OF SYSTEMS: HEENT: Denies headaches. RESPIRATORY: Denies shortness of breath. Denies cough. CARDIOVASCULAR: Denies chest pain. GASTROINTESTINAL: Denies nausea, vomiting, or diarrhea. EXTREMITIES: Denies pain. CENTRAL NERVOUS SYSTEM: Denies change in speech pattern. HISTORY OF PRESENT ILLNESS: This is a 84 y/o male seen in [facility] [place]. No signs of pain or distress. In bed resting. Objective Last 24 Hour Vital Signs Date Time Temp Pulse Resp B/P (MAP) Pulse Ox O2 Delivery O2 Flow Rate FiO2 07/01/20 10:57 124/53 07/01/20 10:57 69 124/53 07/01/20 08:00 97.5 66 20 124/53 (76) 100 07/01/20 08:00 69 07/01/20 04:00 72 07/01/20 04:00 97.9 65 20 116/46 (69) 92 07/01/20 00:00 99.0 62 24 104/54 (71) 94 07/01/20 00:00 83 06/30/20 22:37 87 131/57 06/30/20 21:00 Nasal Cannula 2.0 06/30/20 20:00 70 06/30/20 20:00 99.1 87 24 131/57 (81) 94 06/30/20 16:00 87 06/30/20 16:00 99.1 78 20 114/50 (71) 99 Intake and Output 06/30/20 07/01/20 19:00 07:00 Intake Total 360 ml 200 ml Output Total 1300 ml 700 ml Balance -940 ml -500 ml Intake Oral 360 ml 200 ml Output Urine Total 1300 ml 700 ml # Bowel Movements 1 Height (Feet): 5 Height (Inches): 6.00 Weight (Pounds): 118 Objective CHEST: Clear to auscultation. CARDIOVASCULAR: Regular rate and rhythm. GASTROINTESTINAL: Soft, nontender, EXTREMITIES: No edema. NEUROLOGIC: No changes. Vishal Brito Jul 01, 2020 12:32
--- NOTE | 2020-07-01 13:16 | Infectious Diseases Prog Note ---
Assessment/Plan Assessment/Plan IMPRESSION: Fever UTI with E. coli ESBL Pneumonia/ Acute renal failure, Chronic kidney disease, Acute [place], Anemia. History of recent COVID19 RECOMMENDATION: Continue Meropenem Subjective ROS Limited/Unobtainable: Yes Constitutional: Denies: fever Respiratory: Denies: dry cough Allergies: Coded Allergies: No Known Allergies (Unverified , 06/21/20) Objective Last 24 Hour Vital Signs Date Time Temp Pulse Resp B/P (MAP) Pulse Ox O2 Delivery O2 Flow Rate FiO2 07/01/20 10:57 124/53 07/01/20 10:57 69 124/53 07/01/20 08:00 97.5 66 20 124/53 (76) 100 07/01/20 08:00 69 07/01/20 04:00 72 07/01/20 04:00 97.9 65 20 116/46 (69) 92 07/01/20 00:00 99.0 62 24 104/54 (71) 94 07/01/20 00:00 83 06/30/20 22:37 87 131/57 06/30/20 21:00 Nasal Cannula 2.0 06/30/20 20:00 70 06/30/20 20:00 99.1 87 24 131/57 (81) 94 06/30/20 16:00 87 06/30/20 16:00 99.1 78 20 114/50 (71) 99 Height (Feet): 5 Height (Inches): 6.00 Weight (Pounds): 118 General Appearance: no acute distress HEENT: mucous membranes moist Respiratory/Chest: lungs clear Cardiovascular: normal rate Abdomen: soft, non tender Extremities: no edema Neurologic/Psychiatric: alert, responsive Current Medications Medications (Trade) Dose Ordered Sig/Vanessa Route PRN Reason Start Time Stop Time Status Last Admin Dose Admin Acetaminophen (Tylenol) 500 mg Q4H PRN ORAL Mild Pain (Pain Scale 1-3) 06/26/20 18:45 07/22/20 18:44 06/28/20 09:18 Acetaminophen (Tylenol) 650 mg Q4H PRN ORAL Fever over 100.4 06/26/20 18:45 07/24/20 18:44 06/28/20 20:59 Apixaban (Eliquis) 2.5 mg BID ORAL 06/28/20 17:00 09/26/20 16:59 07/01/20 10:57 Aspirin (ASA) 81 mg DAILY ORAL 06/27/20 09:00 08/09/20 08:59 07/01/20 10:57 Atorvastatin Calcium (Lipitor) 80 mg BEDTIME ORAL 06/26/20 21:00 09/22/20 20:59 06/30/20 22:36 Carvedilol (Coreg) 3.125 mg EVERY 12 HOURS ORAL 06/29/20 21:00 07/29/20 20:59 07/01/20 10:57 Docusate Sodium (Colace) 100 mg TWICE A DAY ORAL 07/01/20 10:00 07/31/20 09:59 07/01/20 10:55 Doxazosin Mesylate (Cardura) 1 mg DAILY ORAL 07/01/20 09:30 07/31/20 09:29 07/01/20 11:07 Furosemide (Lasix) 40 mg EVERY 12 HOURS IV 06/29/20 21:00 07/29/20 20:59 07/01/20 10:55 Haloperidol Lactate (Haldol) 5 mg Q6H PRN IM Agitation 06/26/20 18:45 08/10/20 18:44 Hydralazine HCl (Apresoline) 25 mg Q4H PRN ORAL bp over 160 syst 06/26/20 18:45 09/19/20 18:44 06/29/20 08:55 Lisinopril (ZestriL) 10 mg DAILY ORAL 06/30/20 09:00 07/30/20 08:59 07/01/20 10:57 Meropenem 1 gm/ Sodium Chloride 55 ml @ 110 mls/hr 1100,2300 IVPB 07/01/20 11:00 07/06/20 11:00 07/01/20 11:07 Pantoprazole (Protonix) 40 mg DAILY IVP 07/01/20 10:00 07/31/20 09:59 07/01/20 10:55 Spironolactone (Aldactone) 25 mg DAILY ORAL 06/30/20 09:00 07/30/20 08:59 07/01/20 10:57 Shravan Rodriguez MD Jul 01, 2020 13:16
--- NOTE | 2020-07-01 14:46 | Nephrology Progress Note ---
Assessment/Plan Problem List: (1) Leukocytosis (2) Toxic metabolic encephalopathy (3) MARQUIS (acute kidney injury) (4) Renal failure (ARF), acute on chronic (5) Hyperkalemia (6) Hyperkalemia (7) Cardiomyopathy Assessment: Ej Fx 40% (8) Non-ST elevation SD (NSTEMI) Assessment Acute on chronic renal failure Patient presented with hyperkalemia History of hypertension however presents with borderline low blood pressure Anemia Falls Plan July 01: No labs drawn today. Clinically improving. Continue same management. Will check lab tomorrow. June 30: Clinically doing better. Labs reviewed. Electrolytes normal. Continue treatment for pneumonia. Continue to optimize cardiac status. Discussed with repairer pump. June 29: Discussed with cardiology and pulmonary, will stop IV fluid, start IV Lasix, Lopressor is changed to Coreg. Chest x-ray reviewed. Worsening left lung infiltrate. June 28: No labs drawn today. Clinically stable. Will check labs tomorrow. June 27: Labs reviewed. Renal parameters stable. Continue current care. Patient DNR. June 26: Patient is now in [facility]. Patient is DNR. Last serum creatinine 1.8 done yesterday. Continue current care. Will check renal parameters tomorrow. June 25: Patient in ICU. Hemodynamically stable. Serum creatinine 1.8. Continue per current management. Continue to monitor renal parameters. Patient DNR. June 24: Patient on his way to ICU due to elevated troponin from almost normal up to 17. Labs reviewed. Ejection fraction around 40%. Continue per cardiology. Continue to monitor renal parameters. June 23: Patient agitated. Pulled the Mcleod out. Will discontinue Mcleod. Labs reviewed. Developed leukocytosis. Will give empirical 1 dose of Rocephin pending ID evaluation. Continue to monitor renal parameters. Continue hydration. Monitor blood pressure. Monitor renal parameters. Per orders. Discussed with RN. Repeat chest x-ray ordered. Subjective ROS Limited/Unobtainable: No Constitutional: Reports: malaise Objective Objective Last 24 Hour Vital Signs Date Time Temp Pulse Resp B/P (MAP) Pulse Ox O2 Delivery O2 Flow Rate FiO2 07/01/20 12:00 97.7 61 22 128/56 (80) 99 07/01/20 12:00 75 07/01/20 10:57 124/53 07/01/20 10:57 69 124/53 07/01/20 08:00 97.5 66 20 124/53 (76) 100 07/01/20 08:00 69 07/01/20 04:00 72 07/01/20 04:00 97.9 65 20 116/46 (69) 92 07/01/20 00:00 99.0 62 24 104/54 (71) 94 07/01/20 00:00 83 06/30/20 22:37 87 131/57 06/30/20 21:00 Nasal Cannula 2.0 06/30/20 20:00 70 06/30/20 20:00 99.1 87 24 131/57 (81) 94 06/30/20 16:00 87 06/30/20 16:00 99.1 78 20 114/50 (71) 99 Intake and Output 06/30/20 07/01/20 19:00 07:00 Intake Total 360 ml 200 ml Output Total 1300 ml 700 ml Balance -940 ml -500 ml Intake Oral 360 ml 200 ml Output Urine Total 1300 ml 700 ml # Bowel Movements 1 No labs drawn today Height (Feet): 5 Height (Inches): 6.00 Weight (Pounds): 118 General Appearance: no apparent distress Cardiovascular: normal rate Respiratory/Chest: decreased breath sounds Abdomen: distended Objective No change Sage Up MD Jul 01, 2020 14:46
[2020-07-01 16:00] VITALS: BP 120/51
--- NOTE | 2020-07-01 16:37 | NUR ---
CASE MANAGEMENT:REVIEW 07/01/20 SI: NSTEMI. TOXIC MET ENCEPHALOPATHY AC/CHR RENAL FAILURE. E COLI UTI 97.7 75 22 128/56 99% ON RA IS: IV MEROPENEM Q12 IV LASIX Q12 LISINOPRIL PO QD ALDACTONE PO QD COREG PO Q12 ELIQUIS PO BID ASA PO QD PROTONIX PO QD LIPITOR PO QHS : TELEMETRY STATUS DCP: FROM [facility] CONV PLAN: SWALLOW EVAL
--- NOTE | 2020-07-01 16:42 | NUR ---
INSURANCE CLINICALS AND REVIEWS FOR 06/30 AND 07/01 FAXED TO: [email or web address] P:[phone] F:[phone] AUTH#[id number]
--- NOTE | 2020-07-01 19:30 | NUR ---
NURSE NOTES: Report received from ERON Bain. Awake alert and oriented x2. No SOB. personnel monitor intact and functioning. Bed at lowest position, locked with side rails up. He is on fall precautions. Call light and bedside table within reach. Will continue with plan of care.
--- NOTE | 2020-07-01 19:31 | NUR ---
HAND-OFF: Report given to Nicolette LITTLEJOHN.
[2020-07-01 20:00] VITALS: BP 133/64
[2020-07-01] MEDS: Atorvastatin 80mg tab ORAL SCH (21:05)
--- NOTE | 2020-07-01 21:05 | General Progress Note ---
Assessment/Plan Problem List: (1) Hyperkalemia ICD Codes: E87.5 - Hyperkalemia SNOMED: 46347053, 792179397 (2) Renal insufficiency ICD Codes: N28.9 - Disorder of kidney and ureter, unspecified SNOMED: 900675681, 277235906 (3) Hyperkalemia ICD Codes: E87.5 - Hyperkalemia SNOMED: 91668349 (4) Leukocytosis ICD Codes: D72.829 - Elevated white blood cell count, unspecified SNOMED: 187767508, 629690469 (5) MARQUIS (acute kidney injury) ICD Codes: N17.9 - Acute kidney failure, unspecified SNOMED: 0557547, 52456084 (6) Renal failure (ARF), acute on chronic ICD Codes: N17.9 - Acute kidney failure, unspecified; N18.9 - Chronic kidney disease, unspecified SNOMED: 747700615 (7) Toxic metabolic encephalopathy ICD Codes: G92 - Toxic encephalopathy SNOMED: 608202957 Status: progressing Assessment/Plan: s/p NM esbl uti trop is going down on lasix iv for chf management dnr azotemia is stable afebrile Subjective ROS Limited/Unobtainable: Yes Allergies: Coded Allergies: No Known Allergies (Unverified , 06/21/20) Objective Last 24 Hour Vital Signs Date Time Temp Pulse Resp B/P (MAP) Pulse Ox O2 Delivery O2 Flow Rate FiO2 07/01/20 16:00 97.9 69 20 120/51 (74) 97 07/01/20 16:00 67 07/01/20 12:00 97.7 61 22 128/56 (80) 99 07/01/20 12:00 75 07/01/20 10:57 124/53 07/01/20 10:57 69 124/53 07/01/20 09:00 Room Air 07/01/20 08:00 97.5 66 20 124/53 (76) 100 07/01/20 08:00 69 07/01/20 04:00 72 07/01/20 04:00 97.9 65 20 116/46 (69) 92 07/01/20 00:00 99.0 62 24 104/54 (71) 94 07/01/20 00:00 83 06/30/20 22:37 87 131/57 Intake and Output 06/30/20 07/01/20 19:00 07:00 Intake Total 360 ml 200 ml Output Total 1300 ml 700 ml Balance -940 ml -500 ml Intake Oral 360 ml 200 ml Output Urine Total 1300 ml 700 ml # Bowel Movements 1 Height (Feet): 5 Height (Inches): 6.00 Weight (Pounds): 118 Jefferson Novak MD Jul 01, 2020 21:05
[2020-07-01] MEDS: Acetaminophen 500mg (ES) tab ORAL PRN (21:06)
--- NOTE | 2020-07-01 21:16 | CDS Physician Query ---
Clarification is required for compliance, coding accuracy, and to reflect severity of illness for this patient Dear Sage Ferrara MD Date: 06/30/20 CDI/CDS Name: Fredy Hu Clinical Documentation Statement: "84 YOM has been admitted because of status post fall, admitted for hyperkalemia with peaked T-waves, rule out syncope, head injury"[ H& P Jefferson Novak MD 06/24/20] Assessment: Acute on chronic renal failure Patient presented with hyperkalemia History of hypertension however presents with borderline low blood pressure Anemia [PN Sage Up MD 06/25/20] Clinical Finding Show: 06/21 06/22 06/23 (21:35) (08:45) (07:35) Creatinine 2.8 1.9 1.9 BUN 57 52 38 GFR 26.2 41.0 41.0 Medication: Sodium Chloride IV (06/25) Please Clarify the etiology/diagnosis associated with this findings: [ ] CKD STAGE [ ] Acute Renal Failure (unspecified) [* ] Acute Renal Failure w/ Tubular Necrosis [ ] Acute Renal Failure w/ Cortical Necrosis [ ] Acute Renal Failure w/ Medullary Necrosis [ ] ESRD [ ] Findings are insignificant [ ] Other: Present on Admission: [* ] Yes [ ] No [ ] Clinically Undetermined Physician signature Date Please also document in your Progress Notes and/or Discharge Summary and indicate if the condition was present on admission. ARTURO
[2020-07-02] VITALS: BP 114/58
--- NOTE | 2020-07-02 00:49 | Psych Consult Progress Note ---
Psychiatry Progress Note Psychiatry Progress Note Subjective episodes of agitation. Medications Current Medications Medications (Trade) Dose Ordered Sig/Vanessa Route PRN Reason Start Time Stop Time Status Last Admin Dose Admin Acetaminophen (Tylenol) 500 mg Q4H PRN ORAL Mild Pain (Pain Scale 1-3) 06/26/20 18:45 07/22/20 18:44 07/01/20 21:06 Acetaminophen (Tylenol) 650 mg Q4H PRN ORAL Fever over 100.4 06/26/20 18:45 07/24/20 18:44 06/28/20 20:59 Apixaban (Eliquis) 2.5 mg BID ORAL 06/28/20 17:00 09/26/20 16:59 07/01/20 18:19 Aspirin (ASA) 81 mg DAILY ORAL 06/27/20 09:00 08/09/20 08:59 07/01/20 10:57 Atorvastatin Calcium (Lipitor) 80 mg BEDTIME ORAL 06/26/20 21:00 09/22/20 20:59 07/01/20 21:05 Carvedilol (Coreg) 3.125 mg EVERY 12 HOURS ORAL 06/29/20 21:00 07/29/20 20:59 07/01/20 21:07 Docusate Sodium (Colace) 100 mg TWICE A DAY ORAL 07/01/20 10:00 07/31/20 09:59 07/01/20 18:19 Doxazosin Mesylate (Cardura) 1 mg DAILY ORAL 07/01/20 09:30 07/31/20 09:29 07/01/20 11:07 Furosemide (Lasix) 40 mg EVERY 12 HOURS IV 06/29/20 21:00 07/29/20 20:59 07/01/20 21:05 Haloperidol Lactate (Haldol) 5 mg Q6H PRN IM Agitation 06/26/20 18:45 08/10/20 18:44 Hydralazine HCl (Apresoline) 25 mg Q4H PRN ORAL bp over 160 syst 06/26/20 18:45 09/19/20 18:44 06/29/20 08:55 Lisinopril (ZestriL) 10 mg DAILY ORAL 06/30/20 09:00 07/30/20 08:59 07/01/20 10:57 Meropenem 1 gm/ Sodium Chloride 55 ml @ 110 mls/hr 1100,2300 IVPB 07/01/20 11:00 07/06/20 11:00 07/01/20 22:45 Pantoprazole (Protonix) 40 mg DAILY IVP 07/01/20 10:00 07/31/20 09:59 07/01/20 10:55 Spironolactone (Aldactone) 25 mg DAILY ORAL 06/30/20 09:00 07/30/20 08:59 07/01/20 10:57 Neurological/Psychiatric: Reports: anxiety, depressed, emotional problems Allergies: Coded Allergies: No Known Allergies (Unverified , 06/21/20) Objective Data Height (Feet): 5 Height (Inches): 6.00 Weight (Pounds): 118 General Appearance: no apparent distress Behavior Mannerisms: poor eye contact Mental Status Exam - Suicidal: not present Additional Comments: Awake, disoriented. Mood is agitated. Affect is flat. Thought process is concrete. Thought content, no suicidal or homicidal ideation. Cognition is impaired. Insight and judgment is impaired. Assessment/Plan Status: Chacho Ross MD Jul 02, 2020 00:49
[2020-07-02 04:00] VITALS: BP 111/54
[2020-07-02 06:46] LABS: BASOPHILS % (AUTO) 1.6 % (0.0-2.0); EOSINOPHILS % (AUTO) 2.9 % (0.0-3.0); HEMATOCRIT 31.8 % (42.0-52.0); HEMOGLOBIN 10.8 G/DL (14.2-18.0); LYMPHOCYTES % (AUTO) 11.3 % (20.0-45.0); MEAN CORPUSCULAR VOLUME 89 FL (80-99); MONOCYTES % (AUTO) 6.5 % (1.0-10.0); NEUTROPHILS % (AUTO) 77.7 % (45.0-75.0); PLATELET COUNT 397 K/UL (150-450); RED BLOOD COUNT 3.57 M/UL (4.70-6.10); RED CELL DISTRIBUTION WIDTH 11.3 % (11.6-14.8); WHITE BLOOD COUNT 10.7 K/UL (4.8-10.8)
[2020-07-02 07:05] LABS: ALANINE AMINOTRANSFERASE 41 U/L (12-78); ALBUMIN 2.4 G/DL (3.4-5.0); ALBUMIN/GLOBULIN RATIO 0.6 (1.0-2.7); ALKALINE PHOSPHATASE 83 U/L (46-116); ANION GAP 8 mmol/L (5-15); ASPARTATE AMINO TRANSFERASE 42 U/L (15-37); BLOOD UREA NITROGEN 41 mg/dL (7-18); CALCIUM 8.8 MG/DL (8.5-10.1); CARBON DIOXIDE 35 MMOL/L (21-32); CHLORIDE 104 MMOL/L (98-107); CREATININE 1.7 MG/DL (0.55-1.30); PHOSPHORUS 4.5 MG/DL (2.5-4.9); POTASSIUM 3.4 MMOL/L (3.5-5.1); SODIUM 147 MMOL/L (136-145)
--- NOTE | 2020-07-02 07:20 | NUR ---
NURSE NOTES: Received patient in bed awake. No SOB or acute distress. IV line intact. HOB elevated. Bed locked in low position. Call light within reach. Will continue plan of care.
--- NOTE | 2020-07-02 07:27 | NUR ---
RD ASSESSMENT & RECOMMENDATIONS SEE CARE ACTIVITY FOR COMPLETE ASSESSMENT DAILY ESTIMATED NEEDS: Needs based on Cardiac, mild wasting 56.3kg 25-35 kcals/kg 2821-8855 total kcals 1-1.5 g protein/kg 56-85 g total protein 25-30ml/kcal mL/kg 0862-0641 total fluid mLs NUTRITION DIAGNOSIS: Increased kcal and pro needs r/t underweight and wasting status as evidenced by pt is 87% of [place] Body weight w/ generalized mild wasting, w/ poor and variable PO intake. CURRENT DIET:Regular, pureed moist w/ NTL PO DIET RECOMMENDATIONS: Maintain liberalized Regular diet / texture as tolerated ADDITIONAL RECOMMENDATIONS: 1) Add Ensure Enlive TID w/ meals 2) Calibrated bed scale wts daily 3) Add snacks as tolerated in b.w meals 4) Monitor lytes daily w/ diuretics therapy, replete as needed 5) MVI x 1
--- NOTE | 2020-07-02 07:42 | NUR ---
NURSE HAND-OFF REPORT: Important Events on Shift:[N/A] Patient Status: [Stable, Alert and oriented x 1 to 2, remains at baseline] Diet: [Puree moist thickened liquids] Pending Orders: [None] Pending Results/Labs:[None] Pending MD notification:[None] Latest Vital Signs: Temperature 97.5 , Pulse 65 , B/P 111 /54 , Respiratory Rate 16 , O2 SAT 93 , Nasal Cannula, O2 Flow Rate 2.0 . Vital Sign Comment: [] EKG Rhythm: SR w/ BBB Rhythm change?: N MD Notified?: N MD Response: Latest Anglin Fall Score: 85 Fall Risk: High Risk Safety Measures: Call light Within Reach, Bed Alarm Zone 2, Side Rails Side Rails x3, Bed position Low and Locked. Fall Precautions: Yellow Socks Yellow Gown Door Sign Patient Fall Education Report given to [Parisa RN].
[2020-07-02 08:00] VITALS: BP 136/45
--- NOTE | 2020-07-02 08:43 | General Progress Note ---
Assessment/Plan Assessment/Plan: (1) Degenerative Joint disease (2) NSTEMI Patient to be continued on Tylenol D/w Dr. Smalls and he concurred. Subjective Date patient seen: Jul 02, 2020 Time patient seen: 07:45 - am Allergies: Coded Allergies: No Known Allergies (Unverified , 06/21/20) Subjective REVIEW OF SYSTEMS: HEENT: Denies headaches. RESPIRATORY: Denies shortness of breath. Denies cough. CARDIOVASCULAR: Denies chest pain. GASTROINTESTINAL: Denies nausea, vomiting, or diarrhea. EXTREMITIES: Denies pain. CENTRAL NERVOUS SYSTEM: Denies change in speech pattern. HISTORY OF PRESENT ILLNESS: This is a 84 y/o male seen [place] [facility] In bed resting no new complaints at this time Objective Last 24 Hour Vital Signs Date Time Temp Pulse Resp B/P (MAP) Pulse Ox O2 Delivery O2 Flow Rate FiO2 07/02/20 08:00 98.8 78 20 136/45 (75) 96 07/02/20 04:00 97.5 68 16 111/54 (73) 93 07/02/20 04:00 65 07/02/20 00:00 64 07/02/20 00:00 97.8 66 17 114/58 (76) 97 07/01/20 21:07 64 133/64 07/01/20 21:00 Nasal Cannula 2.0 07/01/20 20:00 97.8 62 16 133/64 (87) 97 07/01/20 20:00 66 07/01/20 16:00 97.9 69 20 120/51 (74) 97 07/01/20 16:00 67 07/01/20 12:00 97.7 61 22 128/56 (80) 99 07/01/20 12:00 75 07/01/20 10:57 124/53 07/01/20 10:57 69 124/53 07/01/20 09:00 Room Air Intake and Output 07/01/20 07/02/20 19:00 07:00 Intake Total 280 ml 500 ml Output Total 1300 ml 1400 ml Balance -1020 ml -900 ml Intake Oral 280 ml 500 ml Output Urine Total 1300 ml 1400 ml Laboratory Tests 07/02/20 05:26: White Blood Count 10.7, Red Blood Count 3.57L, Hemoglobin 10.8L, Hematocrit 31.8L, Mean Corpuscular Volume 89, Mean Corpuscular Hemoglobin 30.3, Mean Corpuscular Hemoglobin Concent 33.9, Red Cell Distribution Width 11.3L, Platelet Count 397, Mean Platelet Volume 5.9L, Neutrophils (%) (Auto) 77.7H, Lymphocytes (%) (Auto) 11.3L, Monocytes (%) (Auto) 6.5, Eosinophils (%) (Auto) 2.9, Basophils (%) (Auto) 1.6, Sodium Level 147H, Potassium Level 3.4L, Chloride Level 104, Carbon Dioxide Level 35H, Anion Gap 8, Blood Urea Nitrogen 41H, Creatinine 1.7H, Estimat Glomerular Filtration Rate 46.5, Glucose Level 99 , Calcium Level 8.8, Phosphorus Level 4.5, Magnesium Level 2.3, Total Bilirubin 1.0, Aspartate Amino Transf (AST/SGOT) 42H, Alanine Aminotransferase (ALT/SGPT) 41, Alkaline Phosphatase 83, C-Reactive Protein, Quantitative 8.6H, Pro-B-Type Natriuretic Peptide 7837H, Total Protein 6.6, Albumin 2.4L, Globulin 4.2, Albumin/Globulin Ratio 0.6L Height (Feet): 5 Height (Inches): 6.00 Weight (Pounds): 118 Objective CHEST: Clear to auscultation. CARDIOVASCULAR: Regular rate and rhythm. GASTROINTESTINAL: Soft, nontender, EXTREMITIES: No edema. NEUROLOGIC: No changes. Vishal Brito Jul 02, 2020 08:43
[2020-07-02] MEDS: Lisinopril 10mg tab ORAL SCH ×2 (09:00→09:58)
[2020-07-02] MEDS: Docusate 100mg/10ml Liq ORAL SCH (09:56)
[2020-07-02] MEDS: Doxazosin 4mg tab ORAL SCH (09:56)
[2020-07-02] MEDS: Aspirin Baby 81mg ORAL SCH (09:57)
[2020-07-02] MEDS: Pantoprazole Inj IVP SCH (09:57)
[2020-07-02] MEDS: Spironolactone 25mg tab ORAL SCH (09:57)
[2020-07-02] MEDS: Eliquis 2.5mg tablet ORAL SCH (09:58)
--- NOTE | 2020-07-02 10:01 | NUR ---
*-*DISCHARGE PLANNED*-* PATIENT HAS BEEN ACCEPTED AND WILL BE DISCHARGED BACK TO: [facility] P: [phone] FOR NURSE TO NURSE REPORT ROOM#HOUSE 9.[facility] SET FOR WILL CALL.
--- NOTE | 2020-07-02 10:26 | Nephrology Progress Note ---
Assessment/Plan Problem List: (1) Leukocytosis (2) Toxic metabolic encephalopathy (3) MARQUIS (acute kidney injury) (4) Renal failure (ARF), acute on chronic (5) Hyperkalemia (6) Hyperkalemia (7) Cardiomyopathy Assessment: Ej Fx 40% (8) Non-ST elevation NC (NSTEMI) Assessment Acute on chronic renal failure Patient presented with hyperkalemia History of hypertension however presents with borderline low blood pressure Anemia Falls Plan July 02: Labs reviewed. Creatinine rising. Clinically no sign of CHF. Will hold Lasix for now. Repeat chest x-ray. Change IV Protonix to p.o. potassium supplement given. Continue to monitor renal parameters. July 01: No labs drawn today. Clinically improving. Continue same management. Will check lab tomorrow. June 30: Clinically doing better. Labs reviewed. Electrolytes normal. Continue treatment for pneumonia. Continue to optimize cardiac status. Discussed with gas maker helper. June 29: Discussed with cardiology and pulmonary, will stop IV fluid, start IV Lasix, Lopressor is changed to Coreg. Chest x-ray reviewed. Worsening left lung infiltrate. June 28: No labs drawn today. Clinically stable. Will check labs tomorrow. June 27: Labs reviewed. Renal parameters stable. Continue current care. Patient DNR. June 26: Patient is now in [facility]. Patient is DNR. Last serum creatinine 1.8 done yesterday. Continue current care. Will check renal parameters tomorrow. June 25: Patient in ICU. Hemodynamically stable. Serum creatinine 1.8. Continue per current management. Continue to monitor renal parameters. Patient DNR. June 24: Patient on his way to ICU due to elevated troponin from almost normal up to 17. Labs reviewed. Ejection fraction around 40%. Continue per cardiology. Continue to monitor renal parameters. June 23: Patient agitated. Pulled the Mcleod out. Will discontinue Mcleod. Labs reviewed. Developed leukocytosis. Will give empirical 1 dose of Rocephin pending ID evaluation. Continue to monitor renal parameters. Continue hydration. Monitor blood pressure. Monitor renal parameters. Per orders. Discussed with RN. Repeat chest x-ray ordered. Subjective ROS Limited/Unobtainable: No Constitutional: Reports: malaise Objective Objective Last 24 Hour Vital Signs Date Time Temp Pulse Resp B/P (MAP) Pulse Ox O2 Delivery O2 Flow Rate FiO2 07/02/20 09:00 136/45 07/02/20 09:00 78 136/45 07/02/20 08:00 98.8 78 20 136/45 (75) 96 07/02/20 04:00 97.5 68 16 111/54 (73) 93 07/02/20 04:00 65 07/02/20 00:00 64 07/02/20 00:00 97.8 66 17 114/58 (76) 97 07/01/20 21:07 64 133/64 07/01/20 21:00 Nasal Cannula 2.0 07/01/20 20:00 97.8 62 16 133/64 (87) 97 07/01/20 20:00 66 07/01/20 16:00 97.9 69 20 120/51 (74) 97 07/01/20 16:00 67 07/01/20 12:00 97.7 61 22 128/56 (80) 99 07/01/20 12:00 75 07/01/20 10:57 124/53 07/01/20 10:57 69 124/53 Intake and Output 07/01/20 07/02/20 19:00 07:00 Intake Total 280 ml 500 ml Output Total 1300 ml 1400 ml Balance -1020 ml -900 ml Intake Oral 280 ml 500 ml Output Urine Total 1300 ml 1400 ml Current Medications Medications (Trade) Dose Ordered Sig/Vanessa Route PRN Reason Start Time Stop Time Status Last Admin Dose Admin Acetaminophen (Tylenol) 500 mg Q4H PRN ORAL Mild Pain (Pain Scale 1-3) 06/26/20 18:45 07/22/20 18:44 07/01/20 21:06 Acetaminophen (Tylenol) 650 mg Q4H PRN ORAL Fever over 100.4 06/26/20 18:45 07/24/20 18:44 06/28/20 20:59 Apixaban (Eliquis) 2.5 mg BID ORAL 06/28/20 17:00 09/26/20 16:59 07/02/20 09:58 Aspirin (ASA) 81 mg DAILY ORAL 06/27/20 09:00 08/09/20 08:59 07/02/20 09:57 Atorvastatin Calcium (Lipitor) 80 mg BEDTIME ORAL 06/26/20 21:00 09/22/20 20:59 8/23/20 21:05 Carvedilol (Coreg) 3.125 mg EVERY 12 HOURS ORAL 06/29/20 21:00 07/29/20 20:59 07/01/20 21:07 Docusate Sodium (Colace) 100 mg TWICE A DAY ORAL 07/01/20 10:00 07/31/20 09:59 07/02/20 09:56 Haloperidol Lactate (Haldol) 5 mg Q6H PRN IM Agitation 06/26/20 18:45 08/10/20 18:44 Hydralazine HCl (Apresoline) 25 mg Q4H PRN ORAL bp over 160 syst 06/26/20 18:45 09/19/20 18:44 06/29/20 08:55 Lisinopril (ZestriL) 10 mg DAILY ORAL 06/30/20 09:00 07/30/20 08:59 07/01/20 10:57 Meropenem 1 gm/ Sodium Chloride 55 ml @ 110 mls/hr 1100,2300 IVPB 07/01/20 11:00 07/06/20 11:00 07/01/20 22:45 Pantoprazole (Protonix) 40 mg EVERY 12 HOURS ORAL 07/02/20 21:00 08/01/20 20:59 Potassium Chloride (K-Dur) 20 meq ONCE ORAL 07/02/20 10:30 07/02/20 11:30 Spironolactone (Aldactone) 25 mg DAILY ORAL 06/30/20 09:00 07/30/20 08:59 07/02/20 09:57 Laboratory Tests 07/02/20 05:26: White Blood Count 10.7, Red Blood Count 3.57L, Hemoglobin 10.8L, Hematocrit 31.8L, Mean Corpuscular Volume 89, Mean Corpuscular Hemoglobin 30.3, Mean Corpuscular Hemoglobin Concent 33.9, Red Cell Distribution Width 11.3L, Platelet Count 397, Mean Platelet Volume 5.9L, Neutrophils (%) (Auto) 77.7H, Lymphocytes (%) (Auto) 11.3L, Monocytes (%) (Auto) 6.5, Eosinophils (%) (Auto) 2.9, Basophils (%) (Auto) 1.6, Sodium Level 147H, Potassium Level 3.4L, Chloride Level 104, Carbon Dioxide Level 35H, Anion Gap 8, Blood Urea Nitrogen 41H, Creatinine 1.7H, Estimat Glomerular Filtration Rate 46.5, Glucose Level 99 , Calcium Level 8.8, Phosphorus Level 4.5, Magnesium Level 2.3, Total Bilirubin 1.0, Aspartate Amino Transf (AST/SGOT) 42H, Alanine Aminotransferase (ALT/SGPT) 41, Alkaline Phosphatase 83, C-Reactive Protein, Quantitative 8.6H, Pro-B-Type Natriuretic Peptide 7837H, Total Protein 6.6, Albumin 2.4L, Globulin 4.2, Albumin/Globulin Ratio 0.6L Height (Feet): 5 Height (Inches): 6.00 Weight (Pounds): 118 General Appearance: no apparent distress Cardiovascular: normal rate Respiratory/Chest: decreased breath sounds Abdomen: soft Objective No change Sage Up MD Jul 02, 2020 10:26
--- NOTE | 2020-07-02 10:35 | Infectious Diseases Prog Note ---
Assessment/Plan Assessment/Plan IMPRESSION: Fever resolved UTI with E. coli ESBL Pneumonia/ Acute renal failure, Chronic kidney disease, Acute MT, Anemia. History of recent COVID19 RECOMMENDATION: Discontinue Meropenem Observe off antibiotic Clear for discharge Remove Mcleod catheter before discharge Subjective ROS Limited/Unobtainable: Yes Constitutional: Denies: fever Allergies: Coded Allergies: No Known Allergies (Unverified , 06/21/20) Objective Last 24 Hour Vital Signs Date Time Temp Pulse Resp B/P (MAP) Pulse Ox O2 Delivery O2 Flow Rate FiO2 07/02/20 09:00 136/45 07/02/20 09:00 78 136/45 07/02/20 08:00 98.8 78 20 136/45 (75) 96 07/02/20 04:00 97.5 68 16 111/54 (73) 93 07/02/20 04:00 65 07/02/20 00:00 64 07/02/20 00:00 97.8 66 17 114/58 (76) 97 07/01/20 21:07 64 133/64 07/01/20 21:00 Nasal Cannula 2.0 07/01/20 20:00 97.8 62 16 133/64 (87) 97 07/01/20 20:00 66 07/01/20 16:00 97.9 69 20 120/51 (74) 97 07/01/20 16:00 67 07/01/20 12:00 97.7 61 22 128/56 (80) 99 07/01/20 12:00 75 07/01/20 10:57 124/53 07/01/20 10:57 69 124/53 Height (Feet): 5 Height (Inches): 6.00 Weight (Pounds): 118 General Appearance: no acute distress HEENT: mucous membranes moist Respiratory/Chest: lungs clear Cardiovascular: normal rate Abdomen: soft, non tender Genitourinary: other - Mcleod catheter Extremities: no edema Neurologic/Psychiatric: other - sleeping Laboratory Tests Test 07/02/20 05:26 White Blood Count 10.7 K/UL (4.8-10.8) Red Blood Count 3.57 M/UL (4.70-6.10) L Hemoglobin 10.8 G/DL (14.2-18.0) L Hematocrit 31.8 % (42.0-52.0) L Mean Corpuscular Volume 89 FL (80-99) Mean Corpuscular Hemoglobin 30.3 PG (27.0-31.0) Mean Corpuscular Hemoglobin Concent 33.9 G/DL (32.0-36.0) Red Cell Distribution Width 11.3 % (11.6-14.8) L Platelet Count 397 K/UL (150-450) Mean Platelet Volume 5.9 FL (6.5-10.1) L Neutrophils (%) (Auto) 77.7 % (45.0-75.0) H Lymphocytes (%) (Auto) 11.3 % (20.0-45.0) L Monocytes (%) (Auto) 6.5 % (1.0-10.0) Eosinophils (%) (Auto) 2.9 % (0.0-3.0) Basophils (%) (Auto) 1.6 % (0.0-2.0) Sodium Level 147 MMOL/L (136-145) H Potassium Level 3.4 MMOL/L (3.5-5.1) L Chloride Level 104 MMOL/L (98-107) Carbon Dioxide Level 35 MMOL/L (21-32) H Anion Gap 8 mmol/L (5-15) Blood Urea Nitrogen 41 mg/dL (7-18) H Creatinine 1.7 MG/DL (0.55-1.30) H Estimat Glomerular Filtration Rate 46.5 mL/min (>60) Glucose Level 99 MG/DL (74-106) Calcium Level 8.8 MG/DL (8.5-10.1) Phosphorus Level 4.5 MG/DL (2.5-4.9) Magnesium Level 2.3 MG/DL (1.8-2.4) Total Bilirubin 1.0 MG/DL (0.2-1.0) Aspartate Amino Transf (AST/SGOT) 42 U/L (15-37) H Alanine Aminotransferase (ALT/SGPT) 41 U/L (12-78) Alkaline Phosphatase 83 U/L (46-116) C-Reactive Protein, Quantitative 8.6 mg/dL (0.00-0.90) H Pro-B-Type Natriuretic Peptide 7837 pg/mL (0-125) H Total Protein 6.6 G/DL (6.4-8.2) Albumin 2.4 G/DL (3.4-5.0) L Globulin 4.2 g/dL Albumin/Globulin Ratio 0.6 (1.0-2.7) L Current Medications Medications (Trade) Dose Ordered Sig/Vanessa Route PRN Reason Start Time Stop Time Status Last Admin Dose Admin Acetaminophen (Tylenol) 500 mg Q4H PRN ORAL Mild Pain (Pain Scale 1-3) 06/26/20 18:45 07/22/20 18:44 07/01/20 21:06 Acetaminophen (Tylenol) 650 mg Q4H PRN ORAL Fever over 100.4 06/26/20 18:45 07/24/20 18:44 06/28/20 20:59 Apixaban (Eliquis) 2.5 mg BID ORAL 06/28/20 17:00 09/26/20 16:59 07/02/20 09:58 Aspirin (ASA) 81 mg DAILY ORAL 06/27/20 09:00 08/09/20 08:59 07/02/20 09:57 Atorvastatin Calcium (Lipitor) 80 mg BEDTIME ORAL 06/26/20 21:00 09/22/20 20:59 07/01/20 21:05 Carvedilol (Coreg) 3.125 mg EVERY 12 HOURS ORAL 06/29/20 21:00 07/29/20 20:59 07/01/20 21:07 Docusate Sodium (Colace) 100 mg TWICE A DAY ORAL 07/01/20 10:00 07/31/20 09:59 07/02/20 09:56 Haloperidol Lactate (Haldol) 5 mg Q6H PRN IM Agitation 06/26/20 18:45 08/10/20 18:44 Hydralazine HCl (Apresoline) 25 mg Q4H PRN ORAL bp over 160 syst 06/26/20 18:45 09/19/20 18:44 06/29/20 08:55 Lisinopril (ZestriL) 10 mg DAILY ORAL 06/30/20 09:00 07/30/20 08:59 07/01/20 10:57 Meropenem 1 gm/ Sodium Chloride 55 ml @ 110 mls/hr 1100,2300 IVPB 07/01/20 11:00 07/06/20 11:00 07/01/20 22:45 Pantoprazole (Protonix) 40 mg EVERY 12 HOURS ORAL 07/02/20 21:00 08/01/20 20:59 Potassium Chloride (K-Dur) 20 meq ONCE ORAL 07/02/20 10:30 07/02/20 11:30 Spironolactone (Aldactone) 25 mg DAILY ORAL 06/30/20 09:00 07/30/20 08:59 07/02/20 09:57 Tamsulosin HCl (Flomax) 0.4 mg BEDTIME ORAL 07/02/20 21:00 08/01/20 20:59 Shravan Nickerson MD Jul 02, 2020 10:35
--- NOTE | 2020-07-02 10:51 | Pulmonology Progress Note ---
Subjective ROS Limited/Unobtainable: Yes Interval Events: Off IV fluids Constitutional: Denies: fever HEENT: Repors: no symptoms Respiratory: Reports: no symptoms Cardiovascular: Reports: no symptoms Gastrointestinal/Abdominal: Reports: no symptoms Allergies: Coded Allergies: No Known Allergies (Unverified , 06/21/20) Objective Last 24 Hour Vital Signs Date Time Temp Pulse Resp B/P (MAP) Pulse Ox O2 Delivery O2 Flow Rate FiO2 07/02/20 09:00 136/45 07/02/20 09:00 78 136/45 07/02/20 08:00 98.8 78 20 136/45 (75) 96 07/02/20 04:00 97.5 68 16 111/54 (73) 93 07/02/20 04:00 65 07/02/20 00:00 64 07/02/20 00:00 97.8 66 17 114/58 (76) 97 07/01/20 21:07 64 133/64 07/01/20 21:00 Nasal Cannula 2.0 07/01/20 20:00 97.8 62 16 133/64 (87) 97 07/01/20 20:00 66 07/01/20 16:00 97.9 69 20 120/51 (74) 97 07/01/20 16:00 67 07/01/20 12:00 97.7 61 22 128/56 (80) 99 07/01/20 12:00 75 07/01/20 10:57 124/53 07/01/20 10:57 69 124/53 Intake and Output 07/01/20 07/02/20 19:00 07:00 Intake Total 280 ml 500 ml Output Total 1300 ml 1400 ml Balance -1020 ml -900 ml Intake Oral 280 ml 500 ml Output Urine Total 1300 ml 1400 ml General Appearance: no acute distress HEENT: normocephalic Respiratory: chest wall non-tender, lungs clear Cardiovascular: normal peripheral pulses Abdomen: normal bowel sounds Laboratory Tests 07/02/20 05:26: White Blood Count 10.7, Red Blood Count 3.57L, Hemoglobin 10.8L, Hematocrit 31.8L, Mean Corpuscular Volume 89, Mean Corpuscular Hemoglobin 30.3, Mean Corpuscular Hemoglobin Concent 33.9, Red Cell Distribution Width 11.3L, Platelet Count 397, Mean Platelet Volume 5.9L, Neutrophils (%) (Auto) 77.7H, Lymphocytes (%) (Auto) 11.3L, Monocytes (%) (Auto) 6.5, Eosinophils (%) (Auto) 2.9, Basophils (%) (Auto) 1.6, Sodium Level 147H, Potassium Level 3.4L, Chloride Level 104, Carbon Dioxide Level 35H, Anion Gap 8, Blood Urea Nitrogen 41H, Creatinine 1.7H, Estimat Glomerular Filtration Rate 46.5, Glucose Level 99 , Calcium Level 8.8, Phosphorus Level 4.5, Magnesium Level 2.3, Total Bilirubin 1.0, Aspartate Amino Transf (AST/SGOT) 42H, Alanine Aminotransferase (ALT/SGPT) 41, Alkaline Phosphatase 83, C-Reactive Protein, Quantitative 8.6H, Pro-B-Type Natriuretic Peptide 7837H, Total Protein 6.6, Albumin 2.4L, Globulin 4.2, Albumin/Globulin Ratio 0.6L Current Medications Medications (Trade) Dose Ordered Sig/Vanessa Route PRN Reason Start Time Stop Time Status Last Admin Dose Admin Acetaminophen (Tylenol) 500 mg Q4H PRN ORAL Mild Pain (Pain Scale 1-3) 06/26/20 18:45 07/22/20 18:44 07/01/20 21:06 Acetaminophen (Tylenol) 650 mg Q4H PRN ORAL Fever over 100.4 06/26/20 18:45 07/24/20 18:44 06/28/20 20:59 Apixaban (Eliquis) 2.5 mg BID ORAL 06/28/20 17:00 09/26/20 16:59 07/02/20 09:58 Aspirin (ASA) 81 mg DAILY ORAL 06/27/20 09:00 08/09/20 08:59 07/02/20 09:57 Atorvastatin Calcium (Lipitor) 80 mg BEDTIME ORAL 06/26/20 21:00 09/22/20 20:59 07/01/20 21:05 Carvedilol (Coreg) 3.125 mg EVERY 12 HOURS ORAL 06/29/20 21:00 07/29/20 20:59 07/01/20 21:07 Docusate Sodium (Colace) 100 mg TWICE A DAY ORAL 07/01/20 10:00 07/31/20 09:59 07/02/20 09:56 Haloperidol Lactate (Haldol) 5 mg Q6H PRN IM Agitation 06/26/20 18:45 08/10/20 18:44 Hydralazine HCl (Apresoline) 25 mg Q4H PRN ORAL bp over 160 syst 06/26/20 18:45 09/19/20 18:44 06/29/20 08:55 Lisinopril (ZestriL) 10 mg DAILY ORAL 06/30/20 09:00 07/30/20 08:59 07/01/20 10:57 Pantoprazole (Protonix) 40 mg EVERY 12 HOURS ORAL 07/02/20 21:00 08/01/20 20:59 Potassium Chloride (K-Dur) 20 meq ONCE ORAL 07/02/20 10:30 07/02/20 11:30 Spironolactone (Aldactone) 25 mg DAILY ORAL 06/30/20 09:00 07/30/20 08:59 07/02/20 09:57 Tamsulosin HCl (Flomax) 0.4 mg BEDTIME ORAL 07/02/20 21:00 08/01/20 20:59 Assessment/Plan Assessment/Plan IMPRESSION: 1. Status post fall. 2. History of COVID-19 pneumonia. 3. Scalp laceration. 4. Renal insufficiency. 5. Anemia. 6. Hypoxemia DISCUSSION: Off V fluids Saturating better; on nasal o2 Discussed with cardiology; Aaron Larry Omar Syed MD Jul 02, 2020 10:51
--- NOTE | 2020-07-02 11:16 | NUR ---
NURSE NOTES: Fc removed as ordered, tolerated well. Cleared by Dr Conrado Rodriguez for discharge. Awaiting Dr Rm clearance for discharge.
[2020-07-02 12:00] VITALS: BP 131/50
--- NOTE | 2020-07-02 14:05 | Cardiac Electrophysiology PN ---
Assessment/Plan Assessment/Plan 1. Acute non-ST elevation myocardial infarction with troponin of 17. Troponin down to 0.4 and Echo EF 40% In view of DNR, Age 84, Confusion and no CP, treat medically. Renal failure and COVID myocarditis may contribute Continue aspirin 81 mg daily, Coreg 3.125 bid and Lipitor 80 2. Transient atrial fib with RVR/SVT. On Coreg and Eliquis 5 bid 3. CHF with EF 40%.On Coreg 3.125 bid, Lisinopril and Aldactone 25 daily Lasix DCed as is getting azotemic 3. History of recent COVID. 4. Renal failure and hyperkalemia. Cr 1.7 now 5. Contusion. 6. DNR 7. Dementia. 8. ROGELIO PNA, Abx per ID VINCENT RN and Dr. Up OK to DC to [facility] Subjective Subjective More alert. In SR with short bursts of fib/SVT. On ELiquis 2.5 bid Objective Last 24 Hour Vital Signs Date Time Temp Pulse Resp B/P (MAP) Pulse Ox O2 Delivery O2 Flow Rate FiO2 07/02/20 12:00 98.7 77 20 131/50 (77) 95 07/02/20 12:00 67 07/02/20 09:00 Nasal Cannula 2.0 07/02/20 09:00 136/45 07/02/20 09:00 78 136/45 07/02/20 08:00 66 07/02/20 08:00 98.8 78 20 136/45 (75) 96 07/02/20 04:00 97.5 68 16 111/54 (73) 93 07/02/20 04:00 65 07/02/20 00:00 64 07/02/20 00:00 97.8 66 17 114/58 (76) 97 07/01/20 21:07 64 133/64 07/01/20 21:00 Nasal Cannula 2.0 07/01/20 20:00 97.8 62 16 133/64 (87) 97 07/01/20 20:00 66 07/01/20 16:00 97.9 69 20 120/51 (74) 97 07/01/20 16:00 67 Intake and Output 07/01/20 07/02/20 19:00 07:00 Intake Total 280 ml 500 ml Output Total 1300 ml 1400 ml Balance -1020 ml -900 ml Intake Oral 280 ml 500 ml Output Urine Total 1300 ml 1400 ml Laboratory Tests Test 07/02/20 05:26 White Blood Count 10.7 K/UL (4.8-10.8) Red Blood Count 3.57 M/UL (4.70-6.10) L Hemoglobin 10.8 G/DL (14.2-18.0) L Hematocrit 31.8 % (42.0-52.0) L Mean Corpuscular Volume 89 FL (80-99) Mean Corpuscular Hemoglobin 30.3 PG (27.0-31.0) Mean Corpuscular Hemoglobin Concent 33.9 G/DL (32.0-36.0) Red Cell Distribution Width 11.3 % (11.6-14.8) L Platelet Count 397 K/UL (150-450) Mean Platelet Volume 5.9 FL (6.5-10.1) L Neutrophils (%) (Auto) 77.7 % (45.0-75.0) H Lymphocytes (%) (Auto) 11.3 % (20.0-45.0) L Monocytes (%) (Auto) 6.5 % (1.0-10.0) Eosinophils (%) (Auto) 2.9 % (0.0-3.0) Basophils (%) (Auto) 1.6 % (0.0-2.0) Sodium Level 147 MMOL/L (136-145) H Potassium Level 3.4 MMOL/L (3.5-5.1) L Chloride Level 104 MMOL/L (98-107) Carbon Dioxide Level 35 MMOL/L (21-32) H Anion Gap 8 mmol/L (5-15) Blood Urea Nitrogen 41 mg/dL (7-18) H Creatinine 1.7 MG/DL (0.55-1.30) H Estimat Glomerular Filtration Rate 46.5 mL/min (>60) Glucose Level 99 MG/DL (74-106) Calcium Level 8.8 MG/DL (8.5-10.1) Phosphorus Level 4.5 MG/DL (2.5-4.9) Magnesium Level 2.3 MG/DL (1.8-2.4) Total Bilirubin 1.0 MG/DL (0.2-1.0) Aspartate Amino Transf (AST/SGOT) 42 U/L (15-37) H Alanine Aminotransferase (ALT/SGPT) 41 U/L (12-78) Alkaline Phosphatase 83 U/L (46-116) C-Reactive Protein, Quantitative 8.6 mg/dL (0.00-0.90) H Pro-B-Type Natriuretic Peptide 7837 pg/mL (0-125) H Total Protein 6.6 G/DL (6.4-8.2) Albumin 2.4 G/DL (3.4-5.0) L Globulin 4.2 g/dL Albumin/Globulin Ratio 0.6 (1.0-2.7) L Objective HEAD AND NECK: Positive JVD. LUNGS: Coarse rhonchi. CARDIOVASCULAR: Regular S1 and S2 with no gallop. ABDOMEN: Soft. EXTREMITIES: No pitting edema. Mor Rm MD Jul 02, 2020 14:05
--- NOTE | 2020-07-02 14:11 | NUR ---
*-*DISCHARGE PLANNED*-* PATIENT HAS BEEN ACCEPTED AND WILL BE DISCHARGED BACK TO: [facility] P: [phone] FOR NURSE TO NURSE REPORT ROOM#HOUSE 9.[facility] SET FOR 3:10pm S/W ALFRED [id number]. PLACED A CALL TO PATIENTS NEVIN BEGUM, IN REDUARDS TO DISCHARGE PLAN, PLACED TWO CALLS, NO ANSWER, LEFT VOICE MESSAGE IN REGARDS TO DISCHARGE PLAN.
--- NOTE | 2020-07-02 14:59 | NUR ---
BEDSIDE SWALLOW EVALUATION RECEIVED FROM DR. RODRIGUEZ. CHART REVIEW COMPLETED, RN INTERVIEWED, EVAL COMPLETED. PER POLST: NO ARTIFICIAL MEANS OF NUTRITION DYSPHAGIA RISK FACTORS: VARIABLE MENTATION, HX OF MULTIPLE FALLS/S/P HEAD TRAUMA, PER HEAD CT: CHRONIC SENESCENT CHANGES., HX OF SUBOPTIMAL P.O. INTAKE (SEE RD REASSESSMENT) INITIAL IMPRESSIONS: BEDSIDE SWALLOW EVALUATION INDICATED GROSSLY INTACT OROPHARYNGEAL PHASE OF SWALLOW FOR SOFT SOLIDS AND THIN LIQUIDS. PATIENT ADMITTED S/P FALL AND HEAD TRAUMA. HE WAS ABLE TO FOLLOW COMMANDS FOR ORAL MOTOR EXAM. DENTITION INCLUDES UPPER AND LOWER DENTURES. LINGUAL/LABIAL/MANDIBULAR MUSCULATURE PRESENTS INTACT FOR ROM/COORDINATION/STRENGTH. TRIALED PATIENT WITH SOFT SOLIDS, PUREE AND THIN LIQUIDS. ORAL PHASE OF THE SWALLOW WAS WFL WITH NO ANTERIOR SPILLAGE OR RESIDUE OF PUREE FOLLOWING THE SWALLOW. WITH SOFT SOLID, MASTICATION WAS MILDLY DELAYED WITH RESIDUE NOTED ON LINGUAL SURFACE POST SWALLOW WHICH CLEARED WHEN FOLLOWED BY A LIQUID WASH OF NECTAR THICK LIQUID. PHARYNGEAL PHASE WAS PALPATED. HYOLARYNGEAL EXCURSION APPEARED TO BE TIMELY AND ADEQUATE FOR AIRWAY PROTECTION. NO CHANGES IN VOCAL QUALITY OR RESPIRATION RATE. NO COUGH OR THROAT CLEAR NOTED. FURTHER SKILLED SEISMIC PLOTTER SERVICES ARE NEEDED FOR COGNITIVE/LINGUISTIC SCREEN (IN LIGHT OF MULTIPLE FALLS) AND TO INSURE PATIENT TOLERATES AN ADVANCE TO SOFT EASY CHEW DIET WITH THIN LIQUIDS. DISCUSSED FINDINGS AND RECOMMENDATIONS WITH RN KADEN. RECOMMENDATIONS 1. PUREE WITH NECTAR THICK LIQUIDS LIQUIDS 2. SET UP ASSIST/SUPERVISION WITH MEALS 3. SKILLED DYSPHAGIA TX/MANAGEMENT FOR DIET TEXTURE ADVANCE, , COGNITIVE/LINGUISTIC SCREEN,PATIENT/CAREGIVER EDUCATION 4. CRUSH CRUSHABLE MEDS/PRESENT IN PUREE 5. SPEECH PATHOLOGY FOLLOWUP AT NEXT LEVEL OF CARE FOR DIET TEXTURE ADVANCE, PATIENT/CAREGIVER EDN RE: [employer] PRECAUTIONS. THANK YOU FOR THIS REFERRAL.
--- NOTE | 2020-07-02 15:43 | NUR ---
NURSE NOTES: Patient discharged to [facility], report given to Ho LITTLEJOHN. Speech therapist recommending swallow eval at snf, Ho aware. IV line removed. library monitor removed. Belongings accounted for. No new skin issues. Family made aware, verbalized understanding.
[2020-07-02] MEDS ORDERED: Tamsulosin 0.4mg cap ORAL SCH (21:00)
--- NOTE | 2020-07-02 22:55 | Psych Consult Progress Note ---
Psychiatry Progress Note Psychiatry Progress Note Subjective no changes the pt is the same episodes of agitation. Neurological/Psychiatric: Reports: anxiety, depressed, emotional problems Allergies: Coded Allergies: No Known Allergies (Unverified , 06/21/20) Objective Data Height (Feet): 5 Height (Inches): 6.00 Weight (Pounds): 118 General Appearance: no apparent distress Behavior Mannerisms: poor eye contact Mental Status Exam - Suicidal: not present Additional Comments: Awake, disoriented. Mood is agitated. Affect is flat. Thought process is concrete. Thought content, no suicidal or homicidal ideation. Cognition is impaired. Insight and judgment is impaired. Chacho Lopez MD Jul 02, 2020 22:55
--- NOTE | 2020-07-03 13:37 | Discharge Summary ---
Discharge Summary Discharge Summary _ DATE OF ADMISSION: 06/21/2020 DATE OF DISCHARGE: 07/02/2020 DISCHARGED BY: Dr Novak REASON FOR ADMISSION: 84 years old male, resident of [facility] facility, with past medical history of hypertension, chronic kidney disease, GERD, anemia, schizophrenia, prior COVID 19 infection, DNR/DNI status, sustained a fall at the facility and was sent for evaluation. Patient was unable to recall events. Upon evaluation vital signs were stable. Laboratory work-up initially revealed no leukocytosis, hemoglobin 11.2, hematocrit 32.5, platelet count 226. Potassium 5.7. BUN 57, creatinine 2.8. Troponin negative. EKG reveals sinus rhythm with right bundle branch block with peaked T wave. Glucose 138. CT of the head revealed no evidence of acute intracranial pathology. Advanced chronic senescent findings Chest x-ray revealed no acute cardiopulmonary pathology. CT of the cervical spine revealed no acute traumatic injury. Osteopenia and multilevel age-related degenerative spine findings noted. Urinalysis revealed pyuria and few bacteria. In emergency department patient received empiric antibiotic , 1 L of fluids and admitted for further management. CONSULTANTS: repair table operator Dr. Pérez pulmonary Dr. An ID specialist Dr. Shravan Rodriguez GI specialist Dr. Up pain specialist Dr. Smalls psychiatrist HOSPITAL COURSE: Patient admitted to telemetry floor. Second troponin 13.873 . Troponin trended up initially with highest being 17.25 and then started to trend down; last troponin 0.424. Echocardiogram revealed distal anteroseptal wall hypokinesis with ejection fraction estimated to be 40%. Moderate mitral regurgitation. Right ventricular systolic pressure of 49 consistent with a moderate pulmonary hypertension. Patient with a DNR/DNI status. In view of the DNR/DNI status , advanced age , confusion and no evidence of chest pain ,patient was treated conservatively/medically. Renal failure and possible COVID 19 myocarditis may contributed to elevated troponin as well. Patient was on antiplatelet therapy with aspirin , beta blockage and statin. Guideline directed medical therapy for congestive heart failure provided with beta-blockade , BETSY inhibitor and diuretics/Aldactone. Initially started Lasix was discontinued , since patient was getting azotemic. Patient noted to have transient atrial fibrillation with rapid ventricular response/SVT. Heart rate was controlled with beta-regino. Patient started on anticoagulation with Eliquis. Patient developed leukocytosis on the second day. Blood culture came back negative. Urine culture initially revealed mixed gram-positive organisms, and repeated urine culture revealed E. coli ESBL. Patient was treated with antibiotics for pneumonia and UTI . Patient completed antibiotic while in the hospital. Mcleod catheter was discontinued prior to discharge. Leukocytosis and fevers resolved. Renal parameters and electrolytes were closely monitored. Electrolytes corrected as needed and nephrotoxic's were avoided. Creatinine initially trended down from 2.8 down to 1.4. Patient had underlying chronic kidney disease. However creatinine then started to trend up - last 1.7. Volumes were closely monitored, clinically no signs of fluid overload at that time . [place] [address]14 down to 7837. Lasix was discontinued and Aldactone was continued. Hyperkalemia treated and prior to discharge stable. Supplemental oxygen provided and titrated to keep pulse oximetry above 92%. Pulmonary toilet provided as needed. Patient provided with supplemental oxygen via nasal cannula. No signs of respiratory distress. Pain management was addressed as per pain specialist recommendation. Supportive care provided. Per psychiatrist, patient had acute toxic encephalopathy. Psychiatric medication regimen optimized. Patient clinically stabilized and was ready for transfer back to jail facility for continuation of care FINAL DIAGNOSES: Acute NSTEMI Transient atrial fibrillation with RVR/SVT Congestive heart failure with ejection fraction 40% Cardiomyopathy Pneumonia UTI with E. coli ESBL Acute renal failure on chronic kidney disease Hyperkalemia -treated Acute toxic metabolic encephalopathy History of recent COVID-19 pneumonia Dementia Status post mechanical fall Degenerative joint disease DNR status DISCHARGE MEDICATIONS: List of medication was sent to accepting facility DISCHARGE INSTRUCTIONS: Patient was discharged to the jail facility. Follow up with medical doctor at the facility. I have been assigned to dictate discharge summary for this account. I was not involved in the patient's management. Joy Good NP Jul 03, 2020 13:37
--- NOTE | 2020-07-12 22:49 | Coder Physician Query ---
Clarification is required for compliance, coding accuracy, and to reflect severity of illness for this patient Dear Dr. Novak Date: 07/12/20 Risk Professional/CDS Name: Janina Osborn CCS DATE OF ADMISSION: 06/21/2020 Troponin negative ( 0.001) HISTORY OF PRESENT ILLNESS: Patient has been admitted because of status post fall, admitted for hyperkalemia with peaked T-waves, rule out syncope, head injury. Second troponin 13.873 . Troponin trended up initially with highest being 17.25 and then started to trend down; last troponin 0.424. Progress note: 06/25/20 Acute non-ST elevation myocardial infarction with troponin of 17. Troponin now down to 5 and echo EF 40% DNR. Partially may be due to renal failure or due to COVID myocarditis in view of patient's recent COVID. Continue aspirin 81 mg daily, metoprolol 12.5 b.i.d., and Lipitor 80 Dr Novak, Clarification is needed for one (or more) of the following conditions in order to accurately assign the "present on admission' indicator. Please choose the answer that best indicates whether the associated condition was present at the time of the order for inpatient admission. Thank you. DIAGNOSIS: Acute non-ST elevation myocardial infarction Was the Acute NSTMI Present on admission? [] YES [] NO [] Clinically Undeterminable Physician signature Date Please also document in your Progress Notes and/or Discharge Summary and indicate if the condition was present on admission. ARTURO
== END 2020-07-02 15:56 | DRG 422 ==
LOC: EDBD 21:26 → EMR 21:43 → EDBEDREQ 22:37 → 2E 22:43 → EDBEDREQ 23:06 → 4E 06-22 21:50 → 2E 06-24 09:55 → ICU 06-24 11:49 → 2W 06-26 00:50 → 2E 06-26 18:36
PROC: 02HV33Z Insertion of Infusion Device into Superior Vena Cava, Percutaneous Approach (ICD-10-PCS; principal; 2020-06-25)
DX: E87.5 Hyperkalemia (principal); I21.4 Non-ST elevation (NSTEMI) myocardial infarction; N17.0 Acute kidney failure with tubular necrosis; J18.9 Pneumonia, unspecified organism; E86.0 Dehydration; D63.8 Anemia in other chronic diseases classified elsewhere; D72.829 Elevated white blood cell count, unspecified; I12.9 Hypertensive chronic kidney disease with stage 1 through stage 4 chronic kidney disease, or unspecified chronic kidney disease; S01.01XA Laceration without foreign body of scalp, initial encounter; I48.91 Unspecified atrial fibrillation; G92 Toxic encephalopathy; M19.90 Unspecified osteoarthritis, unspecified site; N39.0 Urinary tract infection, site not specified; W19.XXXA Unspecified fall, initial encounter; Y92.129 Unspecified place in nursing home as the place of occurrence of the external cause; B96.20 Unspecified Escherichia coli [E. coli] as the cause of diseases classified elsewhere; Z16.12 Extended spectrum beta lactamase (ESBL) resistance; F03.90 Unspecified dementia, unspecified severity, without behavioral disturbance, psychotic disturbance, mood disturbance, and anxiety; Z66 Do not resuscitate; I34.0 Nonrheumatic mitral (valve) insufficiency; I42.9 Cardiomyopathy, unspecified; N18.9 Chronic kidney disease, unspecified; I45.10 Unspecified right bundle-branch block; Z86.19 Personal history of other infectious and parasitic diseases; K21.9 Gastro-esophageal reflux disease without esophagitis
CPT/HCPCS: 36415; 36569; 36600; 70450; 71045; 72125; 76937; 80053; 80061; 81001; 81003; 82248; 82607; 82728; 82746; 82803; 82977; 83036; 83540; 83550; 83615; 83735; 83880; 84100; 84300; 84443; 84484; 84550; 85007; 85025; 85610; 85730; 86140; 87040; 87081; 87086; 87181; 89050; 93005; 93306; 99285; J7030; J8499; U0002